=== PATIENT | male | born 1935 | race Caucasian/White ===

== ENCOUNTER 2025-07-31 21:02 | Inpatient (IN) | payer MEDICARE, SELFPAY ==
--- NOTE | ~2025-07-31 | XR_ITS ---
MODIFIED ESOPHAGRAM HISTORY: Coughing with liquids TECHNIQUE: Modified barium esophagram was performed on 08/07/2025. I administered fluoroscopy and performed the exam with speech pathologist. Patient was seated for lateral fluoroscopic imaging for ingestion of thin liquids, pudding, solids and quantified amounts, followed by thin liquids in uncontrolled amounts. This was recorded on tape. A single fluoroscopic spot image was also recorded. The DAP for this procedure was 3.013 Gycm2. The amount of fluoroscopy time used during this procedure was 3.5 minutes. FINDINGS: Oral stage: Adequate function. Pharyngeal stage: Reduced laryngeal elevation, tongue base retraction and pharyngeal squeeze. There is pharyngeal wall, piriform sinus and vallecular residue. There is laryngeal penetration without aspiration.. Cervical/esophageal stage: Adequate function. IMPRESSION: Patient tolerated regular consistency oral feedings in the upright position. Please correlate with speech pathologist findings and specific feeding recommendations. Reviewed, dictated and finalized at location A. IMPRESSION: Patient tolerated regular consistency oral feedings in the upright position. Please correlate with speech pathologist findings and specific feedi ng recommendations.
--- NOTE | ~2025-07-31 | XR_ITS ---
XR chest 1V portable 07/31/2025 21:50 Indication: Fever Procedure: AP portable chest Comparison: No prior studies for comparison. Findings: There is airspace disease of the left mid and lower lung, consistent with pneumonia. Cardiomegaly. Status post median sternotomy for CABG. No pneumothorax. Small right pleural effusion versus pleural thickening. Multiple healed right rib fractures. Impression: 1: Airspace disease left mid and lower lung which is compatible with pneumonia. 2: Small right pleural effusion versus pleural thickening. Reviewed, dictated and finalized at location O. Impression: 1: Airspace disease left mid and lower lung which is compatible with pneumonia. 2: Small right pleural effusion versus pleural thickening.
--- NOTE | ~2025-07-31 | XR_ITS ---
EXAMINATION: XR chest 1V portable DATE: 08/08/2025 06:50 INDICATION: Pneumonia TECHNIQUE: frontal view of the chest was obtained. COMPARISON: Chest radiograph dated 08/02/25 FINDINGS: Persistent airspace opacities in the right mid to lower and left lower lung zones which could represent atelectasis or pneumonia. No pleural effusion or pneumothorax. Heart size is normal. Median sternotomy wires and mediastinal surgical clips are seen, likely from prior coronary artery bypass grafting. Multiple old healed right-sided rib fractures. Lower thoracic dextrocurvature. IMPRESSION: 1. Persistent mild opacities in the right mid to lower and left lower lung zones which could represent atelectasis or pneumonia. Reviewed, dictated and finalized at location A. IMPRESSION: 1. Persistent mild opacities in the right mid to lower and left lower lung zone s which could represent atelectasis or pneumonia.
--- NOTE | ~2025-07-31 | XR_ITS ---
EXAMINATION: XR chest 1V portable, 08/02/2025 22:58 CDT HISTORY: afib rvr COMPARISON: No comparisons available. Technique: Single view. Findings: Moderate pulmonary venous congestion. Small basilar infiltrates. No pneumothorax. Moderate cardiomegaly. Mediastinal and hilar contours are within normal limits. Post sternotomy. Remote Rib fractures. Impression: CHF. Superimposed probable pneumonia. Reviewed, dictated and finalized at location A. Impression: CHF. Superimposed probable pneumonia.
--- NOTE | ~2025-07-31 | XR_ITS ---
MODIFIED ESOPHAGRAM HISTORY: Coughing with liquids. Pneumonia. TECHNIQUE: Modified barium esophagram was performed on 08/01/2025. I administered fluoroscopy and performed the exam with speech pathologist. Patient was seated for lateral fluoroscopic imaging for ingestion of thin liquids, pudding, solids and quantified amounts, followed by thin liquids in uncontrolled amounts. This was recorded on tape. A single fluoroscopic spot image was also recorded. The DAP for this procedure was 1.633 Gycm2. The amount of fluoroscopy time used during this procedure was 2.2 minutes. FINDINGS: Oral stage: Adequate function. Pharyngeal stage: Reduced laryngeal elevation and tongue base retraction. There is vallecular residue. Single episode of laryngeal penetration with thin liquids taken through a straw. No aspiration. Cervical/esophageal stage: Adequate function. IMPRESSION: Mild pharyngeal dysphagia with single episode of laryngeal penetration without aspiration due to reduced laryngeal elevation. Please correlate with speech pathologist findings and specific feeding recommendations. Reviewed, dictated and finalized at location A. IMPRESSION: Mild pharyngeal dysphagia with single episode of laryngeal penetrat ion without aspiration due to reduced laryngeal elevation. Please correlate [facility] speech pathologist findings and specific feeding recommendations.
--- NOTE | ~2025-07-31 | NM_ITS ---
EXAMINATION: NM GI bleeding DATE: 08/01/2025 16:02 INDICATION: Coffee-ground emesis TECHNIQUE: 20 mCi Tc 99m in vitro UltraTag labeled red cells administered intravenously. Scintigraphic images of the abdomen were obtained through one hour. FINDINGS: No pattern of abnormal activity is seen in the abdomen or pelvis to suggest gastrointestinal hemorrhage. IMPRESSION: 1. No scintigraphic evidence for active gastrointestinal bleeding. Reviewed, dictated and finalized at location A.
--- NOTE | ~2025-07-31 | CT_ITS ---
EXAMINATION: CT chest abdomen pelvis wo con DATE: 08/03/2025 13:15 INDICATION: Abdominal pain. Worsening opacities in the lungs. TECHNIQUE: Computed tomography (CT) of the chest, abdomen, and pelvis was performed without intravenous contrast. Automated exposure control and iterative reconstruction technique were employed. The dose-length product was 1215.12 mGy-cm. COMPARISON: None FINDINGS: CHEST CT: Very small right and trace left pleural effusions. There are scattered patchy groundglass opacities in both lungs with more dense patchy consolidation and some tree-in-bud opacities in the bilateral lower lobes and the right middle lobe which could represent atelectasis, pneumonia, pulmonary edema or some combination thereof. Cardiomegaly. Atherosclerotic coronary artery calcifications. Postoperative change of prior median sternotomy and coronary artery bypass grafting. 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 No pericardial effusion. Enlargement of the central pulmonary arteries consistent with pulmonary arterial hypertension. Mild mediastinal lymphadenopathy which is likely reactive. ABDOMEN/PELVIS CT: There are multiple hypodense hepatic masses measuring up to 7.8 cm at the medial segment of the left hepatic lobe and 6 cm at the inferior right hepatic lobe consistent with metastatic disease. Spleen, bilateral adrenal glands and left kidney are normal. 12 mm exophytic lesion at the lower pole the right kidney which appears denser than the renal parenchyma, still indeterminate but suggestive of proteinaceous/hemorrhagic cyst. Tiny focus of pneumobilia within the otherwise normal gallbladder likely related to a biliary stent seen in the distal common bile duct at the head of the otherwise normal-appearing pancreas there is extensive oral contrast material scattered throughout the colon. There are multiple diverticula without adjacent inflammatory stranding to suggest diverticulitis. No bowel obstruction. Postoperative change of bilateral inguinal hernia repairs. Bladder appears unremarkable although portions of the posterior bladder obscured by dense metallic streak artifact from a left total hip arthroplasty. 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 Moderate thoracic and lower lumbar spondylosis. IMPRESSION: 1. Bilateral inferior predominant lung disease which could represent, pulmonary edema, atelectasis or some combination thereof with very small right and trace left pleural effusions. 2. Cardiomegaly with enlargement of the central pulmonary arteries consistent with pulmonary arterial hypertension. 3. 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 4. Multiple scattered hepatic masses consistent with metastatic disease. If this is a new finding would recommend ultrasound-guided biopsy. 5. Indeterminate 1.2 cm exophytic right renal lesion most likely proteinaceous/hemorrhagic cyst although differential includes solid neoplasm. Consider follow-up pre and postcontrast MRI or CT when clinically improved. 6. Tiny focus of pneumobilia within the normal gallbladder likely related to a common bile duct biliary stent. Reviewed, dictated and finalized at location A. IMPRESSION: 1. Bilateral inferior predominant lung disease which could represent, pulmonary edema, atelectasis or some combination thereof with very small right and trace left pleural effusions. 2. Cardiomegaly with enlargement of the central pulmonary arteries consistent w ith pulmonary arterial hypertension. 3. 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 4. Multiple scattered hepatic masses consistent with metastatic disease. If thi s is a new finding would recommend ultrasound-guided biopsy. 5. Indeterminate 1.2 cm exophytic right renal lesion most likely proteinaceous/ hemorrhagic cyst although differential includes solid neoplasm. Consider follow -up pre and postcontrast MRI or CT when clinically improved. 6. Tiny focus of pneumobilia within the normal gallbladder likely related to a common bile duct biliary stent.
[2025-07-31 21:02] VITALS: BP 114/48; PULSE 117; RESP 36; TEMP 39.4; O2SAT 95
--- NOTE | 2025-07-31 21:10 | ECG_ITS ---
Test Date: 2025-07-31 21:16:27 Measurements Intervals [place] Rate: 110 P: 0 AK: 0 QRS: 252 QRSD: 214 T: 21 QT: 395 QTc: 537 Interpretive Statements ATRIAL FIBRILLATION WITH RAPID VENTRICULAR RESPONSE WITH ABERRANT CONDUCTION OR VENTRICULAR PREMATURE COMPLEXES MARKED RIGHT AXIS DEVIATION [QRS AXIS > 100] RIGHT BUNDLE BRANCH BLOCK [120+ ms QRS DURATION, UPRIGHT V1, 40+ ms S IN I/aVL/V4/V5/V6] No previous ECG available for comparison Electronically Signed On 08-01-2025 12:33:06 CDT by Jagjit Cabral M.D.
[2025-07-31 21:12] VITALS: PULSE 110
--- NOTE | 2025-07-31 21:18 | ED_ITS ---
HPI - Altered Mental Status General Chief Complaint: Altered Mental Status Stated Complaint: altered mental status, fever Time Seen by Provider: 07/31/25 21:09 History of Present Illness HPI narrative: Patient is a 89-year-old male who presents emergency department this evening from local [facility] facility due to concern for sepsis. Patient was noted to be febrile with a temperature of 103? F. Patient himself states that he has been having a cough and some shortness of breath which has been ongoing for 1 week. EMS also reported 1 episode of coffee-ground emesis. He does have a history of atrial fibrillation and is on Eliquis. residential also reported a history of liver cancer. Patient is not from this area and recently moved here to this nursing facility. Related Data Allergies Allergy/AdvReac Type Severity Reaction Status Date / Time banana Allergy Rash Verified 07/31/25 21:18 clarithromycin (From Biaxin) Allergy Unknown Verified 07/31/25 21:18 Penicillins Allergy Unknown Verified 07/31/25 21:18 piperacillin (From Zosyn) Allergy Unknown Verified 07/31/25 21:18 ramipril Allergy Unknown Verified 07/31/25 21:18 tazobactam (From Zosyn) Allergy Unknown Verified 07/31/25 21:18 vancomycin Allergy Unknown Verified 07/31/25 21:18 Review of Systems 2 Review of Systems: All systems are reviewed and are negative unless stated otherwise in the HPI. Exam 2 Narrative: General: Alert, awake, febrile, in no acute distress. HEENT: PERRL, no rhinorrhea, no post nasal drip, oropharynx clear. Neck: Trachea midline, no JVD, no lymphadenopathy. Cardiovascular: Regular rate and rhythm, no murmurs, rubs or gallops, no peripheral edema. Respiratory: Clear to auscultation bilaterally, no tachypnea, no wheezing, no rhonchi, no rubs, no respiratory distress. Abdomen: Soft, nontender, nondistended, no rebound, no guarding, no peritoneal signs. Musculoskeletal: No joint swelling or deformity, normal muscle tone. Skin: No rashes or petechia, no signs of infection. Psychiatric: Alert and oriented, normal behavior and judgment for situation. Neurological: Alert and oriented to person, place, and time. Follows all commands. No focal deficits, speech is clear and fluent. Course Vital Signs Vital signs: Vital Signs Temperature 103 F H 07/31/25 21:02 Pulse Rate 117 H 07/31/25 21:02 Respiratory Rate 36 H 07/31/25 21:02 Blood Pressure 114/48 L 07/31/25 21:02 Pulse Oximetry 95 07/31/25 21:02 Oxygen Delivery Room Air 07/31/25 21:02 Temperature 103 F H 07/31/25 21:02 Pulse Rate 110 H 07/31/25 21:12 Respiratory Rate 36 H 07/31/25 21:02 Blood Pressure 114/48 L 07/31/25 21:02 Pulse Oximetry 99 07/31/25 21:21 Oxygen Delivery Nasal Cannula 07/31/25 21:21 Oxygen Flow Rate 2 07/31/25 21:21 MDM - Altered Mental Status MDM Narrative Medical decision making narrative: The patient was evaluated by myself in the emergency department. History is obtained from patient who is an independent historian and physical exam was performed. External medical records were reviewed at this time. IV was established and pertinent tests were ordered. Patient was started on IV fluids due to concern for sepsis. Administered 1 g of IV Rocephin and 100 mg of IV doxycycline pending source identification likely source pulmonary and at 1 g of oral Tylenol for a fever of 103? F. blood cultures were obtained prior to antibiotic administration. EKG was obtained which revealed AFib with RVR rate of 110 beats per minute. No ST changes, T wave inversions or evidence of acute ischemia. EKG was independently interpreted by me and is currently pending official cardiology read. Laboratory results obtained revealing a leukocytosis of 14.3, hemoglobin of 7.8, no previous hemoglobin available to trend. At this time given that the patient is on Eliquis with 2 reported coffee-ground emesis, type and screen an H&H every 6 hours were ordered. Patient was administered 80 mg of IV Protonix. CMP revealed a sodium of 129, creatinine 1.5, lactic acid 2.5, AST 98 an ALT 88, alkaline phosphatase 68. Case was discussed with the on-call burn out tender lace Dr. Bustos at 2215 due to concern for upper GI bleed and he did agree to evaluate the patient in the morning. Imaging studies obtained included CXR which was independently interpreted by me revealing: Impression: 1: Airspace disease left mid and lower lung which is compatible with pneumonia. 2: Small right pleural effusion versus pleural thickening. Differential diagnosis considerations include sepsis secondary to infectious process such as pneumonia/UTI, dehydration, electrolyte derangements, acute viral syndrome. Comorbidities impacting this visit include reported history of liver cancer. I have evaluated and discussed social determinants of health with the patient that could potentially impact subsequent diagnosis and treatment plans. On repeat assessment of the patient, reevaluation revealed that the patient is doing well and is in no acute distress. Patient symptoms have improved since he arrived to our emergency department. Repeat vital signs were all reviewed and noted to be stable. Differential diagnosis and treatment plan were discussed with the patient at bedside. Patient agrees with discussion and after shared medical decision making agrees with admission. All questions were answered to the patient's satisfaction. Critical care time of 57 minutes, exclusive of separately performed procedures, necessary for treating or preventing eminent or life-threatening deterioration of patient's condition of sepsis, focused on patient care provided personally by me and time spent during initial evaluation, physical examination, ordering and performing treatments and interventions, ordering and reviewing laboratory studies, ordering and reviewing radiographic studies, re-evaluation of the patient's condition, evaluation of the patient's response to treatment, and discussion of patient case with multiple consultants. Case discussed with the on-call hospitalist Cordelia at 2230 and she accepted admission. Lab Data 07/31/25 21:39 07/31/25 21:39 Labs: Lab Results 07/31/25 Range/Units 21:39 WBC 14.3 H (4.5-10.0) K/mm3 RBC 2.77 L (4.6-6.20) M/mm3 Hgb 7.8 L (14.0-18.0) g/dL Hct 24.8 L (42.0-52.0) % MCV 89.5 (80-100) fl MCH 28.2 (26-34) pg MCHC 31.5 L (32-36) g/dl RDW 17.8 H (11.5-14.5) % Plt Count 354 (150-375) k/mm3 MPV 9.7 (7.4-10.4) fl Immature Gran % (Auto) 0.7 H (0-0.5) % Neut % (Auto) 93.1 H (45.5-73.1) % Lymph % (Auto) 1.5 L (18.3-44.2) % [place] % (Auto) 4.5 (2.6-8.5) % Eos % (Auto) 0.0 (0-4.4) % Baso % (Auto) 0.2 (0.2-1.2) % Lymph # (Auto) 0.22 L (0.9-3.2) K/mm3 [place] # (Auto) 0.6 (0.1-0.6) K/mm3 Eos # (Auto) 0.0 (0-0.3) K/mm3 Baso # (Auto) 0.0 (0.0-0.1) K/mm3 Abs Immat Gran (auto) 0.10 H (0.00-0.031) K/mm3 Absolute Neuts (auto) 13.3 H (1.3-6.7) K/mm3 Absolute Nucleated RBC 0.000 (0.0-0.012) K/mm3 Nucleated RBC % 0.0 (0.0-0.2) % Sodium 129 L (137-145) mmol/L Potassium 4.4 (3.4-5.0) mmol/L Chloride 96 L (98-107) mmol/L Carbon Dioxide 23 (22-30) mmol/L Anion Gap 10 (4-12) mmol/L BUN 39 H (9-20) mg/dL Creatinine 1.53 H (0.7-1.3) mg/dL Estim Creat Clear Calc 31 ml/min Estimated GFR 43 L (59 - ) Glucose 144 H (65-110) mg/dL Lactic Acid 2.5 H (0.7-2.0) mmol/L Calcium 8.2 L (8.4-10.2) mg/dL Magnesium 2.2 (1.6-2.3) mg/dL Total Bilirubin 0.8 (0.2-1.3) mg/dL AST 98 H (17-59) U/L ALT 88 H (6-50) U/L Alkaline Phosphatase 668 H (38-126) U/L Ammonia < 9 L (9-30) umol/L Total Protein 7.1 (6.3-8.2) g/dL Albumin 3.4 L (3.5-5.1) g/dL Influenza A (RT-PCR) Pending Influenza B (RT-PCR) Pending RSV (RT-PCR) Pending SARS-CoV-2 RNA (RT-PCR) Pending Critical Care Time Critical Care Time Critical Care Time: Yes Total Critical Care Time: 57 (Please refer to MDM for attestation.) Discharge Plan Discharge Clinical Impression: Sepsis, Lobar pneumonia, Acute upper GI bleed, History of liver disease, Normocytic anemia, Hyponatremia Patient Disposition: Still a Patient Condition: Stable Patient Language: Thai Follow-up/Referrals: PHYSICIAN,TOOL MAINTENANCE TECHNICIAN [Primary Care Provider, Internal Medicine] Time of Disposition: 22:39
[2025-07-31] MEDS: SODIUM CHLORIDE 0.9% IV 1,000 ML 999 ML IV CONT ×2 (21:19→22:01)
[2025-07-31 21:21] VITALS: O2SAT 99
[2025-07-31] MEDS: ACETAMINOPHEN 500 MG TABLET 1000 MG PO (21:25)
[2025-07-31 21:53] LABS: Hematocrit 24.8 % (42.0-52.0); Hemoglobin 7.8 g/dL (14.0-18.0); Immature Granulocyte Percent A 0.7 % (0-0.5); Lymphocytes Absolute Auto 0.22 K/mm3 (0.9-3.2); Mean Corpuscular HGB Conc 31.5 g/dl (32-36); Mean Corpuscular Hemoglobin 28.2 pg (26-34); Mean Corpuscular Volume 89.5 fl (80-100); Nucleated Red Blood Cells Absolute Auto 0.000 K/mm3 (0.0-0.012); Nucleated Red Blood Cells Perc 0.0 % (0.0-0.2); Platelet Count Result 354 k/mm3 (150-375); Red Blood Count 2.77 M/mm3 (4.6-6.20); White Blood Count 14.3 K/mm3 (4.5-10.0)
--- NOTE | 2025-07-31 21:56 | PC.NURSE ---
Patient was unable to provide a urine sample and stated he would try again after his bag of fluids is finished.
[2025-07-31 22:00] VITALS: TEMP 37.2; O2SAT 97
[2025-07-31 22:00] LABS: Ammonia < 9 umol/L (9-30)
[2025-07-31 22:05] LABS: Alanine Aminotransferase 88 U/L (6-50); Albumin Level 3.4 g/dL (3.5-5.1); Alkaline Phosphatase 668 U/L (38-126); Anion Gap 10 mmol/L (4-12); Aspartate Amino Transferase 98 U/L (17-59); Bilirubin,Total 0.8 mg/dL (0.2-1.3); Blood Urea Nitrogen 39 mg/dL (9-20); Calcium 8.2 mg/dL (8.4-10.2); Carbon Dioxide 23 mmol/L (22-30); Chloride 96 mmol/L (98-107); Estimated CRCL calculation 31 ml/min; Estimated Glomerular Filt Rate 43; Glucose 144 mg/dL (65-110); Magnesium 2.2 mg/dL (1.6-2.3); Potassium 4.4 mmol/L (3.4-5.0); Sodium 129 mmol/L (137-145); Total Protein 7.1 g/dL (6.3-8.2)
--- NOTE | 2025-07-31 22:12 | PC.NURSE ---
Per EDP. Pt is to only receive first 2nd bag of NS. She will then reassess pt to determine if he is in need of the rest of his fluids that are ordered.
[2025-07-31 23:01] LABS: Influenza A QL RT-PCR Negative (Negative); Influenza B QL RT-PCR Negative (Negative); RSV RNA, RT-PCR Negative (Negative); SARS-CoV-2 RNA PCR Negative (Negative)
--- NOTE | 2025-07-31 23:01 | PC.NURSE ---
Patient refused straight cath at this time. newsagent notified.
[2025-07-31 23:05] LABS: Hematocrit 27.0 % (42.0-52.0); Hemoglobin 8.7 g/dL (14.0-18.0)
[2025-07-31] MEDS: cefTRIAXone 2 GM in SODIUM CHLORIDE 0.9% IV 100 ML 200 ML IVPB (23:10)
[2025-07-31] MEDS: PANTOPRAZOLE SODIUM IV 40 MG VIAL 80 MG IV PUSH (23:19)
[2025-07-31 23:20] LABS: Add Urine Microscopic? YES; Appearance Urine Clear (Clear); Glucose Urine UA Negative (Negative); Leukocyte Esterase Ur Negative LEU/UL (Negative); Nitrate Urine Negative (Negative); Specific Grav Ur 1.027 (1.001-1.035)
[2025-07-31 23:31] VITALS: BP 110/79; PULSE 110; RESP 20; TEMP 37.2; O2SAT 98
[2025-07-31 23:45] VITALS: BP 115/54; PULSE 123; RESP 18; TEMP 36.8; O2SAT 99; BMI 25.4
[2025-08-01] VITALS (30 sets, daily range): BP systolic 103–128; BP diastolic 44–62; PULSE 72–114; RESP 14–28; TEMP 36.4–36.9; O2SAT 95–100; BMI 25.4
--- NOTE | 2025-08-01 | ADMGEN ---
This patient, Isaias Mc, was admitted to IMU Room 214-01. Patient/family oriented to hospital policies and general routines including ID bracelet, bed and alarms, visiting hours, pain management, procedures, bathroom and other care routines, personal items, smoking policy, room service/diet, and visiting hours. Information on how to activate the Rapid Response Team has been discussed. Patient/Family are encouraged to report perceived risks to care and to ask questions if they do not understand what they are told or what they should do. Received report from REYES Bhandari at [phone]. Patient arrived at 2345 via stretcher.
[2025-08-01] MEDS: DOXYCYCLINE IV 100 MG in SODIUM CHLORIDE 0.9% IV 100 ML IVPB ×2 (01:40→14:53)
--- NOTE | 2025-08-01 03:41 | PM.IMHP ---
H&P: HPI History of Present Illness Date/Time: 08/01/25 03:41 Chief Complaint: Altered mental status Narrative: This is a 89-year-old male patient who resides at [facility]. He has a history of AFib and is on Eliquis. It was also reported that he has liver cancer. It was reported that the patient is not from this area and recently moved here to this nursing facility. The patient is a poor historian. The patient was sent here to the emergency room for concern of sepsis. The patient was noted to be afebrile with a temperature 103?. The patient told the emergency room that he was having cough and some shortness of breath for 1 week. Chest x-ray was read as 1: Airspace disease left mid and lower lung which is compatible with pneumonia. 2: Small right pleural effusion versus pleural thickening His white count was found to be 14.3. H&H is 8.7 and 27.0. Sodium levels 129 with chloride of 96. BUN 39 with creatinine of 1.53. GFR is 43. Glucose is 144. Lactic acid was 2.5 now 1.6. Calcium is low at 8.2. AST is 98, ALT is 88, alkaline phosphatase 668. Ammonia level is less than 9. Serology testing are negative. The patient was given normal saline bolus x3. He was started on doxycycline and ceftriaxone. The patient is being admitted to inpatient status in IMU on the date of service of 08/01/2025 Review of Systems Review of Systems: ROS unobtainable: Yes unobtainable due to medical condition and unobtainable due to mental status [facility] Past Medical History Medical History (Updated 08/01/25 @ 04:34 by Moni Storey APRN) BPH (benign prostatic hyperplasia) Hypothyroidism Seizure disorder Atrial fibrillation Family History Family History Mother Congestive heart failure Social History Social History (Updated 08/01/25 @ 03:54 by Moni Storey APRN) Social History: He resides at [facility]. Code status;: Full code Smoking packs per day: 1 Smoking cigarettes per day: 20.0 Years smoked: 15 Smoking pack-years: 15.00 Smoking status: Former smoker Tobacco type: cigarettes and pipe Smoking end date: 11/27/69 Additional smoking assessment comments: Smoked pipe for 20 year after quit so Alcohol intake: former Drinks per week: 1 Substance use: never Substance use type: does not use Lack of Transportation: No Lack of Food: Never True Current Housing: I Have Housing Concerned About Future Housing: No Difficulty Paying Gas/Electric Bills: No Difficulty Paying for Meds: No Currently Unemployed: No Education: Master's Degree or Higher Difficulty w/ Childcare or Family Care: YES Spiritual care concerns: No Meds Home Medications and Allergies Home Medications ?Medication ?Instructions ?Recorded ?Confirmed ?Type amiodarone 200 mg tablet 200 mg PO BID 08/01/25 08/01/25 History apixaban 5 mg tablet (Eliquis) 5 mg PO BID 08/01/25 08/01/25 History aspirin 81 mg tablet 81 mg PO ONCE 08/01/25 08/01/25 History carbamazepine 100 mg/5 mL oral 150 mg PO DAILY@1700 08/01/25 08/01/25 History suspension (Tegretol) carbamazepine 200 mg tablet 300 mg PO DAILY 08/01/25 08/01/25 History (Tegretol) furosemide 20 mg tablet 20 mg PO DAILY@0800 08/01/25 08/01/25 History levetiracetam 250 mg tablet 250 mg PO DAILY 08/01/25 08/01/25 History (Keppra) levothyroxine 150 mcg tablet 150 mcg PO DAILY@0630 08/01/25 08/01/25 History metoprolol tartrate 25 mg tablet 25 mg PO BID 08/01/25 08/01/25 History eibkeqom-rr-bqxer 300 mcg-K 60 1 tablet PO DAILY 08/01/25 08/01/25 History mcg-lycop 600 mcg-lutein 300 mcg tablet (Centrum Silver Men) spironolactone 25 mg tablet 25 mg PO DAILY 08/01/25 08/01/25 History tamsulosin 0.4 mg capsule 0.4 mg PO Q24H 08/01/25 08/01/25 History vit C,H-Kl-tsinnv-lutein-zeaxan 60 1 cap PO DAILY 08/01/25 08/01/25 History mg-13.5 mg-15 mg-2 mg-6 mg capsule (Ocuvite Lutein and Zeaxanthin) Allergies Allergy/AdvReac Type Severity Reaction Status Date / Time banana Allergy Rash Verified 07/31/25 21:18 clarithromycin (From Biaxin) Allergy Unknown Verified 07/31/25 21:18 Penicillins Allergy Unknown Verified 07/31/25 21:18 piperacillin (From Zosyn) Allergy Unknown Verified 07/31/25 21:18 ramipril Allergy Unknown Verified 07/31/25 21:18 tazobactam (From Zosyn) Allergy Unknown Verified 07/31/25 21:18 vancomycin Allergy Unknown Verified 07/31/25 21:18 Vital Signs Vital Signs - 24 hr 07/31/25 21:02 07/31/25 21:12 07/31/25 21:21 Temperature 103 F H Pulse Rate 117 H 110 H Respiratory Rate 36 H Blood Pressure 114/48 L Pulse Oximetry 95 99 Oxygen Delivery Room Air Nasal Cannula Oxygen Flow Rate 2 07/31/25 22:00 07/31/25 22:00 07/31/25 23:31 Temperature 99.0 F 99.0 F Pulse Rate 110 H Respiratory Rate 20 Blood Pressure 110/79 Pulse Oximetry 97 98 Oxygen Delivery Room Air Oxygen Flow Rate 07/31/25 23:45 08/01/25 00:00 08/01/25 00:00 Temperature 98.3 F Pulse Rate 123 H 114 H 113 H Respiratory Rate 18 18 Blood Pressure 115/54 L Pulse Oximetry 99 99 Oxygen Delivery Room Air Oxygen Flow Rate 08/01/25 00:32 08/01/25 02:00 Temperature Pulse Rate 114 H 89 Respiratory Rate Blood Pressure Pulse Oximetry Oxygen Delivery Oxygen Flow Rate Exam Const: General: cooperative, comfortable, no acute distress, well developed, average body habitus and well nourished Nutritional Appearance: average body habitus Orientation/consciousness: oriented to person HENMT: Head: normal to inspection, No palpable skull fracture present, normocephalic and atraumatic Ears: external ears normal Eyes: General: appearance normal, both eyes and all related structures Alignment and Position: alignment normal Neck: Neck: normal visual inspection Chest: Chest palpation & inspection: normal inspection of the chest Resp: Effort & Inspection: normal respiratory effort Auscultation: clear to auscultation bilaterally Cardio: Rate: regular rate Rhythm: abnormal rhythm regularly irregular Peripheral pulses: Peripheral pulses 2+ throughout GI: Inspection: normal to inspection Skin: General skin exam: normal color Lesions: no lesions Rashes: no rashes Trauma: no lacerations or abrasions Wounds: no wounds Other: Light green bruising noted to the left anterior shoulder Neuro: General: oriented to person and oriented to place Other: Patient is a poor historian. The patient keeps falling asleep during the interview. Is having difficulty answering questions. He continues to fall asleep not answer the questions. Extrem: General: normal to inspection Right upper extremity: normal to inspection and shoulder/upper arm Left upper extremity: normal to inspection Right lower extremity: normal to inspection Left lower extremity: normal to inspection Psych: Appearance: grossly normal H&P: Results Labs Labs: Short CBC 07/31/25 07/31/25 Range/Units 21:39 22:53 WBC 14.3 H (4.5-10.0) K/mm3 Hgb 7.8 L 8.7 L (14.0-18.0) g/dL Hct 24.8 L 27.0 L (42.0-52.0) % Plt Count 354 (150-375) k/mm3 BMP 07/31/25 21:39 Sodium 129 L Potassium 4.4 Chloride 96 L Carbon Dioxide 23 BUN 39 H Creatinine 1.53 H Glucose 144 H Calcium 8.2 L Liver Function 07/31/25 Range/Units 21:39 Total Bilirubin 0.8 (0.2-1.3) mg/dL AST 98 H (17-59) U/L ALT 88 H (6-50) U/L Alkaline Phosphatase 668 H (38-126) U/L Albumin 3.4 L (3.5-5.1) g/dL Urine 07/31/25 Range/Units 23:10 Urine Color Dark yellow (Yellow) Urine Appearance Clear (Clear) Urine pH 5.0 (5.0-9.0) Ur Specific [place] 1.027 (1.001-1.035) Urine Protein Negative (Negative) mg/dL Urine Glucose (UA) Negative (Negative) mg/dL Imaging Chest x-ray: Radiologist's impression: Impressions Chest X-Ray 07/31/25 21:56 Impression: 1: Airspace disease left mid and lower lung which is compatible with pneumonia. 2: Small right pleural effusion versus pleural thickening. Assessment and Plan Assessment and plan (1) Lobar pneumonia: Code(s): J18.1 - Lobar pneumonia, unspecified organism Status: Acute Assessment and Plan: -continue with IV fluids -lactic was elevated at 2.5 and then came down to 1.6 with IV fluids. -routine nebulizer treatments. -continue with Rocephin and doxycycline IV antibiotics. -sputum culture pending (2) Atrial fibrillation: Code(s): I48.91 - Unspecified atrial fibrillation Status: Acute Assessment and Plan: -the patient remains in AFib with controlled heart rate -continue with Eliquis -continue with amiodarone (3) Hyponatremia: Code(s): E87.1 - Hypo-osmolality and hyponatremia Status: Acute Assessment and Plan: -continue with IV fluids -check urine and serum osmolality -the patient is on Lasix which can deplete disodium so I will hold it for now. -the patient also may be dehydrated. -it was reported that the patient has some type of liver cancer. However cannot find it in his records and I was unable [facility] that could verify this. This could also be another source of hyponatremia -continue to monitor renal function (4) Hypothyroidism: Code(s): E03.9 - Hypothyroidism, unspecified Status: Acute Assessment and Plan: -check thyroid level -continue with thyroid medicine -the patient has been on amiodarone which could possibly cause his hypothyroidism. (5) Acute upper GI bleed: Code(s): K92.2 - Gastrointestinal hemorrhage, unspecified Status: Acute Assessment and Plan: -check stool for occult blood -continue to monitor H&H -his initial H&H was 7.8 and 24.8. Repeat level was 8.7 and 27.0. Now he is 6.7 and 21.0 -he is hemodynamically stable. -it was reported that the patient had a coffee-ground emesis in the emergency room. -the patient is on Eliquis for AFib -hold Eliquis for today. Re-evaluate to determine if again restart it for AFib -GI has been consulted (6) History of liver disease: Code(s): Z87.19 - Personal history of other diseases of the digestive system Status: Acute Assessment and Plan: -it was reported that the patient has possible liver cancer. However I am not able to reach anybody at the nursing facility that can give me further history. May consider CT of the abdomen. -liver enzymes are elevated (7) BPH (benign prostatic hyperplasia): Code(s): N40.0 - Benign prostatic hyperplasia without lower urinary tract symptoms Status: Acute Assessment and Plan: -continue with Flomax (8) Seizure disorder: Code(s): G40.909 - Epilepsy, unspecified, not intractable, without status epilepticus Status: Acute Assessment and Plan: -continue with Keppra and Tegretol -check Keppra and Tegretol levels. -the dosages on his seizure medicine came from his home list. I called [facility] and gave them our fax number so that they can fax this is information. His home medication list has some abnormal dosing and is not consistent with normal dosages on medication. These medications need to be verified through [facility]. (9) Acute renal failure: Code(s): N17.9 - Acute kidney failure, unspecified Status: Acute Assessment and Plan: -could be related to the Lasix -the patient could also be dehydrated from his fever and or poor oral intake. - Plan The nurse from [facility] stated that his note reflect abnormal liver disease and she is not sure if he has liver cancer. Quality VTE Prophylaxis VTE prophylaxis: mechanical ordered
[2025-08-01 04:22] LABS: Hematocrit 21.0 % (42.0-52.0); Mean Corpuscular HGB Conc 31.9 g/dl (32-36); Mean Corpuscular Hemoglobin 28.6 pg (26-34); Mean Corpuscular Volume 89.7 fl (80-100); Platelet Count Result 289 k/mm3 (150-375); Red Blood Count 2.34 M/mm3 (4.6-6.20); White Blood Count 12.6 K/mm3 (4.5-10.0)
[2025-08-01 04:25] LABS: Hemoglobin 6.7 g/dL (14.0-18.0)
[2025-08-01 04:36] LABS: Anion Gap 7 mmol/L (4-12); Blood Urea Nitrogen 38 mg/dL (9-20); Calcium 8.0 mg/dL (8.4-10.2); Carbon Dioxide 23 mmol/L (22-30); Chloride 100 mmol/L (98-107); Estimated CRCL calculation 35 ml/min; Estimated Glomerular Filt Rate 48; Glucose 111 mg/dL (65-110); Potassium 4.1 mmol/L (3.4-5.0); Sodium 130 mmol/L (137-145)
[2025-08-01 05:04] LABS: Thyroid Stimulating Hormone Reflex 3.660 uIU/mL (0.465-4.68)
[2025-08-01 05:25] LABS: Hematocrit 22.2 % (42.0-52.0)
[2025-08-01 05:27] LABS: Hemoglobin 6.9 g/dL (14.0-18.0)
[2025-08-01] MEDS: LEVOTHYROXINE SODIUM 150 MCG TABLET PO (06:22)
[2025-08-01] MEDS: IPRATROPIUM 0.5 MG/ALBUTEROL SULFATE 2.5 MG AMPUL.NEB 3 ML INHALATION ×2 (08:15→20:50)
--- NOTE | 2025-08-01 08:24 | P.PNIM_ITS ---
Progress Note: A&P Assessment and Plan (1) Lobar pneumonia: Code(s): J18.1 - Lobar pneumonia, unspecified organism Status: Acute Assessment and Plan: Treated with IV fluids. -lactic was elevated at 2.5 and then came down to 1.6 with IV fluids. -routine nebulizer treatments. -continue with Rocephin and doxycycline IV antibiotics. -sputum culture pending (2) Atrial fibrillation: Code(s): I48.91 - Unspecified atrial fibrillation Status: Acute Assessment and Plan: -the patient remains in AFib with controlled heart rate -continue with Eliquis -continue with amiodarone With due to drop in H&H will hold Eliquis (3) Hyponatremia: Code(s): E87.1 - Hypo-osmolality and hyponatremia Status: Acute Assessment and Plan: -continue with IV fluids -check urine and serum osmolality -Lasix on hold -it was reported that the patient has some type of liver cancer. However cannot find it in his records and I was unable to reach anybody at the [facility] that could verify this. This could also be another source of hyponatremia -continue to monitor renal function (4) Hypothyroidism: Code(s): E03.9 - Hypothyroidism, unspecified Status: Acute Assessment and Plan: -continue replacement (5) Acute upper GI bleed: Code(s): K92.2 - Gastrointestinal hemorrhage, unspecified Status: Acute Assessment and Plan: -check stool for occult blood -continue to monitor H&H -his initial H&H was 7.8 and 24.8. Repeat level was 8.7 and 27.0. Now he is 6.7 and 21.0 -he is hemodynamically stable. -it was reported that the patient had a coffee-ground emesis in the emergency room. -the patient is on Eliquis for AFib -hold Eliquis -GI has been consulted. Awaiting recommendation. Will transfuse 1 unit of PRBC Will add Protonix IV b.i.d. (6) History of liver disease: Code(s): Z87.19 - Personal history of other diseases of the digestive system Status: Acute Assessment and Plan: -it was reported that the patient has possible liver cancer. Get records. May consider CT of the abdomen. -liver enzymes are elevated (7) BPH (benign prostatic hyperplasia): Code(s): N40.0 - Benign prostatic hyperplasia without lower urinary tract symptoms Status: Acute Assessment and Plan: -continue with Flomax (8) Seizure disorder: Code(s): G40.909 - Epilepsy, unspecified, not intractable, without status epilepticus Status: Acute Assessment and Plan: -continue with Keppra and Tegretol -check Keppra and Tegretol levels. -the dosages on his seizure medicine came from his home list. (9) Acute renal failure: Code(s): N17.9 - Acute kidney failure, unspecified Status: Acute Assessment and Plan: -could be related to the Lasix -the patient could also be dehydrated from his fever and or poor oral intake. - Plan Dysphagia modified barium swallow performed mild dysesthesia with single episode of laryngeal penetration without aspiration. On dysphagia diet now. Subjective Date/time seen: 08/01/25 08:24 Interval history: No overnight events. Coughing whenever he swallows. Discussed with speech therapy. Labs reviewed. This was nursing staff. Feels little better than yesterday. Review of Systems Review of Systems: All systems reviewed & are unremarkable except as noted in HPI and below Exam Narrative: General: Alert, awake, in no acute distress. HEENT: PERRL, no rhinorrhea, no post nasal drip, oropharynx clear. Neck: Trachea midline, no JVD, no lymphadenopathy. Cardiovascular: Regular rate and rhythm, no murmurs, rubs or gallops, no peripheral edema. Respiratory: Clear to auscultation bilaterally, no tachypnea, no wheezing, no rhonchi, no rubs, no respiratory distress. Abdomen: Soft, nontender, nondistended, no rebound, no guarding, no peritoneal signs. Musculoskeletal: No joint swelling or deformity, normal muscle tone. Skin: No rashes or petechia, no signs of infection. Psychiatric: Alert and oriented, normal behavior and judgment for situation. Neurological: Alert and oriented to person, place, and time. Follows all commands. No focal deficits, speech is clear and fluent. Objective Data Vital Signs Vital Signs: Vital Signs - 24 hr 07/31/25 21:02 07/31/25 21:12 07/31/25 21:21 Temperature 103 F H Pulse Rate 117 H 110 H Respiratory Rate 36 H Blood Pressure 114/48 L Pulse Oximetry 95 99 Oxygen Delivery Room Air Nasal Cannula Oxygen Flow Rate 2 07/31/25 22:00 07/31/25 22:00 07/31/25 23:31 Temperature 99.0 F 99.0 F Pulse Rate 110 H Respiratory Rate 20 Blood Pressure 110/79 Pulse Oximetry 97 98 Oxygen Delivery Room Air Oxygen Flow Rate 07/31/25 23:45 08/01/25 00:00 08/01/25 00:00 Temperature 98.3 F Pulse Rate 123 H 114 H 113 H Respiratory Rate 18 18 Blood Pressure 115/54 L Pulse Oximetry 99 99 Oxygen Delivery Room Air Oxygen Flow Rate 08/01/25 00:32 08/01/25 02:00 08/01/25 04:00 Temperature Pulse Rate 114 H 89 75 Respiratory Rate Blood Pressure Pulse Oximetry Oxygen Delivery Oxygen Flow Rate 08/01/25 04:00 08/01/25 04:47 08/01/25 06:00 Temperature 98.1 F Pulse Rate 75 86 80 Respiratory Rate 18 Blood Pressure 113/62 Pulse Oximetry 100 Oxygen Delivery Room Air Oxygen Flow Rate 08/01/25 08:00 Temperature 97.8 F Pulse Rate 72 Respiratory Rate 21 H Blood Pressure 103/46 L Pulse Oximetry 100 Oxygen Delivery Oxygen Flow Rate Intake/Output Intake/Output: Intake & Output 07/29/25 07/30/25 07/31/25 08/01/25 23:59 23:59 23:59 23:59 Intake Total 1000 320 Balance 1000 320 Meds/Results Medications: Active Medications Generic Name Dose Route Start Last Admin Trade Name Freq PRN Reason Stop Dose Admin Albuterol/Ipratropium 3 ml 08/01/25 08:00 08/01/25 08:15 Ipratropium 0.5 Mg/Albuterol Sulfate 2.5 Mg Ampul.Neb 3 Ml INHALATION 3 ml Q6HRT [facility] Administration Amiodarone HCl 200 mg 08/01/25 08:00 Amiodarone Hcl 200 Mg Tablet PO BIDWM [facility] Carbamazepine 100 mg 08/01/25 17:00 Carbamazepine Chew 100 Mg Chew PO 08/31/25 16:59 DAILY@1700 [facility] Carbamazepine 300 mg 08/01/25 09:00 Carbamazepine Chew 100 Mg Chew PO DAILY [facility] Carbamazepine 50 mg 08/01/25 17:00 Carbamazepine Chew 50 Mg Chew PO DAILY@1700 [facility] Famotidine 20 mg 08/01/25 09:00 Famotidine 20 Mg/2 Ml Vial IV PUSH Q12HR [facility] Guaifenesin/Dextromethorphan 10 ml 08/01/25 04:21 Guaifenesin/Dextromethorphan 10 Ml Udc PO Q4H PRN Cough Ceftriaxone Sodium 1 gm/ 50 mls @ 100 mls/hr 08/01/25 23:00 Sodium Chloride IVPB Q24H ROSMERY Doxycycline Hyclate 100 mg/ 100 mls @ 100 mls/hr 08/01/25 14:00 Sodium Chloride IVPB 08/06/25 02:59 Q12H ROSMERY Sodium Chloride 250 mls @ 30 mls/hr 08/01/25 08:21 Normal Saline Iv IV CONT 08/01/25 16:40 .Q8H20M STA Levetiracetam 250 mg 08/01/25 09:00 Levetiracetam 250 Mg Tablet PO DAILY [facility] Levothyroxine Sodium 150 mcg 08/01/25 06:30 08/01/25 06:22 Levothyroxine Sodium 150 Mcg Tablet PO 150 mcg DAILY@0630 [facility] Administration Metoprolol Tartrate 25 mg 08/01/25 09:00 Metoprolol Tartrate 25 Mg Tablet PO Q12HR [facility] Multivitamins/Minerals 1 tablet 08/01/25 09:00 Opti-Gen Tab PO DAILY [facility] Spironolactone 25 mg 08/01/25 09:00 Spironolactone 25 Mg Tablet PO DAILY [facility] Tamsulosin HCl 0.4 mg 08/01/25 09:00 Tamsulosin Hcl 0.4 Mg Capsule PO DAILY [facility] Radiology Results: ITS Impressions Chest X-Ray 07/31/25 21:56 Impression: 1: Airspace disease left mid and lower lung which is compatible with pneumonia. 2: Small right pleural effusion versus pleural thickening. Labs Labs: Laboratory Results - last 24 hr 07/31/25 07/31/25 07/31/25 21:39 22:53 22:54 WBC 14.3 H RBC 2.77 L Hgb 7.8 L 8.7 L Hct 24.8 L 27.0 L MCV 89.5 MCH 28.2 MCHC 31.5 L RDW 17.8 H Plt Count 354 MPV 9.7 Immature Gran % (Auto) 0.7 H Neut % (Auto) 93.1 H Lymph % (Auto) 1.5 L Garvin % (Auto) 4.5 Eos % (Auto) 0.0 Baso % (Auto) 0.2 Lymph # (Auto) 0.22 L Garvin # (Auto) 0.6 Eos # (Auto) 0.0 Baso # (Auto) 0.0 Abs Immat Gran (auto) 0.10 H Absolute Neuts (auto) 13.3 H Absolute Nucleated RBC 0.000 Nucleated RBC % 0.0 Sodium 129 L Potassium 4.4 Chloride 96 L Carbon Dioxide 23 Anion Gap 10 BUN 39 H Creatinine 1.53 H Estim Creat Clear Calc 31 Estimated GFR 43 L Glucose 144 H Lactic Acid 2.5 H Calcium 8.2 L Magnesium 2.2 Total Bilirubin 0.8 AST 98 H ALT 88 H Alkaline Phosphatase 668 H Ammonia < 9 L Total Protein 7.1 Albumin 3.4 L TSH (Reflex) Urine Color Urine Appearance Urine pH Ur Specific [place] Urine Protein Urine Glucose (UA) Urine Ketones Ur Blood (Man) Urine Nitrate Urine Bilirubin Urine Urobilinogen Leukocyte Esterase Rfl Influenza A (RT-PCR) Negative Influenza B (RT-PCR) Negative RSV (RT-PCR) Negative SARS-CoV-2 RNA (RT-PCR) Negative Blood Type A Positive Antibody Screen Negative 07/31/25 08/01/25 08/01/25 23:10 00:42 04:14 WBC 12.6 H RBC 2.34 L Hgb 6.7 L* Hct 21.0 L MCV 89.7 MCH 28.6 MCHC 31.9 L RDW 17.5 H Plt Count 289 MPV 9.5 Immature Gran % (Auto) Neut % (Auto) Lymph % (Auto) Garvin % (Auto) Eos % (Auto) Baso % (Auto) Lymph # (Auto) Garvin # (Auto) Eos # (Auto) Baso # (Auto) Abs Immat Gran (auto) Absolute Neuts (auto) Absolute Nucleated RBC Nucleated RBC % Sodium 130 L Potassium 4.1 Chloride 100 Carbon Dioxide 23 Anion Gap 7 BUN 38 H Creatinine 1.39 H Estim Creat Clear Calc 35 Estimated GFR 48 L Glucose 111 H Lactic Acid 1.6 Calcium 8.0 L Magnesium Total Bilirubin AST ALT Alkaline Phosphatase Ammonia Total Protein Albumin TSH (Reflex) 3.660 Urine Color Dark yellow Urine Appearance Clear Urine pH 5.0 Ur Specific [place] 1.027 Urine Protein Negative Urine Glucose (UA) Negative Urine Ketones Negative Ur Blood (Man) Negative Urine Nitrate Negative Urine Bilirubin Negative Urine Urobilinogen 1.0 Leukocyte Esterase Rfl Negative Influenza A (RT-PCR) Influenza B (RT-PCR) RSV (RT-PCR) SARS-CoV-2 RNA (RT-PCR) Blood Type Antibody Screen 08/01/25 05:13 WBC RBC Hgb 6.9 L* Hct 22.2 L MCV MCH MCHC RDW Plt Count MPV Immature Gran % (Auto) Neut % (Auto) Lymph % (Auto) Garvin % (Auto) Eos % (Auto) Baso % (Auto) Lymph # (Auto) Garvin # (Auto) Eos # (Auto) Baso # (Auto) Abs Immat Gran (auto) Absolute Neuts (auto) Absolute Nucleated RBC Nucleated RBC % Sodium Potassium Chloride Carbon Dioxide Anion Gap BUN Creatinine Estim Creat Clear Calc Estimated GFR Glucose Lactic Acid Calcium Magnesium Total Bilirubin AST ALT Alkaline Phosphatase Ammonia Total Protein Albumin TSH (Reflex) Urine Color Urine Appearance Urine pH Ur Specific [place] Urine Protein Urine Glucose (UA) Urine Ketones Ur Blood (Man) Urine Nitrate Urine Bilirubin Urine Urobilinogen Leukocyte Esterase Rfl Influenza A (RT-PCR) Influenza B (RT-PCR) RSV (RT-PCR) SARS-CoV-2 RNA (RT-PCR) Blood Type Antibody Screen
--- NOTE | 2025-08-01 08:33 | PCSTNOTE ---
Please refer to the Bedside Swallow Evaluation in the EMR. Please note, silent aspiration cannot be ruled out at bedside. The patient is an 89 year old male admitted for pneumonia with coughing noted by nursing. Orders received to complete a BSE and rule out aspiration risk. The patient was positioned upright in bed. He is slightly lethargic but able to state his name and answer questions regarding his swallow function. Patient states he has been coughing with liquids. Oral motor ROM is functional for PO trials. Oral stage: Timely oral preparation and transit across consistencies. Pharyngeal Stage: When presented 5cc/tsp thin liquid no noted coughing or choking. When presented small controlled drinks thin liquid via straw the patient was noted to have a cough reflex following the swallow. When presented small controlled drinks mildly thick liquid again a cough response was noted after the swallow. With trials pudding consistency no noted coughing. Laryngeal elevation was good for all trials and vocal quality remained clear. Recommend MBS Study.
--- NOTE | 2025-08-01 09:53 | PCSTNOTE ---
Please refer to the Modified Barium Swallow Evaluation in the EMR. The patient is an 89 year old male admitted with pneumonia a BSE was ordered to r/o aspiration risk due to noted coughing with drinks by nursing. The patient was seen in a lateral view and presented the following consistencies: 5cc/tsp thin liquid barium, cup drinks thin liquid barium, straw drinks thin liquid barium, pudding mixed with barium paste, and cracker coated with barium paste. Oral Stage: Timely oral preparation and transit all consistencies. Pharyngeal stage: When presented cup trials of thin liquid the patient was noted to have moderate residual within the valleculae following the swallow secondary to reduced lingual pressure. The patient was able to clear significant amounts of the vallecular residual with a repeat dry swallow or by alternating bites and drinks. When presented cup trials of thin liquid via straw the patient was noted to have moderate residual within the valleculae following the swallow secondary to reduced lingual pressure. The patient was also noted to have trace laryngeal penetration during the swallow secondary to decreased laryngeal elevation. The material entered the airway but remained above the vocal folds and was ejected. The patient was able to clear significant amounts of the vallecular residual with a repeat dry swallow or by alternating bites and drinks. Finally, when presented trials pudding mixed with barium paste, and cracker coated with barium paste thee patient was viewed to have mild vallecular residual cleared with a repeat swallow or by alternating bites and drinks. Recommend 1. Regular Diet / Level 7 2. Thin Liquid / Level 0 3. No Straw 4. Small bites and drinks 5. Alternate bites and drinks 6. Frequent repeat swallow 7. upright for all meals 8. Speech therapy to address compensatory techniques and exercises to include [place], Effortful swallow, Tongue base retraction, and laryngeal elevation with a chin tuck against resistance.
[2025-08-01] MEDS: METOPROLOL TARTRATE 25 MG TABLET PO ×2 (09:57→20:33)
[2025-08-01] MEDS: AMIODARONE HCL 200 MG TABLET PO ×2 (09:57→16:50)
[2025-08-01] MEDS: SPIRONOLACTONE 25 MG TABLET PO (09:57)
[2025-08-01] MEDS: OPTI-GEN TAB 1 TABLET PO (09:57)
[2025-08-01] MEDS: FAMOTIDINE 20 MG/2 ML VIAL IV PUSH (09:58)
--- NOTE | 2025-08-01 10:07 | WPDCDIQUERY2 ---
CDI Query Clarification Request Sepsis was mentioned in ER note. However, this diagnosis has not been referenced in subsequent hospitalist documentation. Please clarify if sepsis has been ruled in or ruled out. ER documented: Clinical Impression: Sepsis, Lobar pneumonia, Acute upper GI bleed, History of liver disease, Normocytic anemia, Hyponatremia Hospitalist documented: Assessment and plan (1) Lobar pneumonia: Code(s): J18.1 - Lobar pneumonia, unspecified organism Status: Acute Assessment and Plan: -continue with IV fluids -lactic was elevated at 2.5 and then came down to 1.6 with IV fluids. -routine nebulizer treatments. -continue with Rocephin and doxycycline IV antibiotics. -sputum culture pending (2) Atrial fibrillation: Code(s): I48.91 - Unspecified atrial fibrillation Status: Acute Assessment and Plan: -the patient remains in AFib with controlled heart rate -continue with Eliquis -continue with amiodarone (3) Hyponatremia: Code(s): E87.1 - Hypo-osmolality and hyponatremia Status: Acute Assessment and Plan: -continue with IV fluids -check urine and serum osmolality -the patient is on Lasix which can deplete disodium so I will hold it for now. -the patient also may be dehydrated. -it was reported that the patient has some type of liver cancer. However cannot find it in his records and I was unable to reach anybody at the [facility] that could verify this. This could also be another source of hyponatremia -continue to monitor renal function (4) Hypothyroidism: Code(s): E03.9 - Hypothyroidism, unspecified Status: Acute Assessment and Plan: -check thyroid level -continue with thyroid medicine -the patient has been on amiodarone which could possibly cause his hypothyroidism. (5) Acute upper GI bleed: Code(s): K92.2 - Gastrointestinal hemorrhage, unspecified Status: Acute Assessment and Plan: -check stool for occult blood -continue to monitor H&H -his initial H&H was 7.8 and 24.8. Repeat level was 8.7 and 27.0. Now he is 6.7 and 21.0 -he is hemodynamically stable. -it was reported that the patient had a coffee-ground emesis in the emergency room. -the patient is on Eliquis for AFib -hold Eliquis for today. Re-evaluate to determine if again restart it for AFib -GI has been consulted (6) History of liver disease: Code(s): Z87.19 - Personal history of other diseases of the digestive system Status: Acute Assessment and Plan: -it was reported that the patient has possible liver cancer. However I am not able to reach anybody at the nursing facility that can give me further history. May consider CT of the abdomen. -liver enzymes are elevated (7) BPH (benign prostatic hyperplasia): Code(s): N40.0 - Benign prostatic hyperplasia without lower urinary tract symptoms Status: Acute Assessment and Plan: -continue with Flomax (8) Seizure disorder: Code(s): G40.909 - Epilepsy, unspecified, not intractable, without status epilepticus Status: Acute Assessment and Plan: -continue with Keppra and Tegretol -check Keppra and Tegretol levels. -the dosages on his seizure medicine came from his home list. I called [facility] and gave them our fax number so that they can fax this is information. His home medication list has some abnormal dosing and is not consistent with normal dosages on medication. These medications need to be verified through [place]. (9) Acute renal failure: Code(s): N17.9 - Acute kidney failure, unspecified Status: Acute Assessment and Plan: -could be related to the Lasix -the patient could also be dehydrated from his fever and or poor oral intake. Lactic acid: 07/31: 2.5, 08/01: 1.6 WBC elevated 14.3, 12.6 Febrile in ER temp documented at 103 Doxy IV q12 ceftriaxone IV q24 <Mali Bautista RN - Last Filed: 08/01/25 10:25> Provider Comments Sepsis ruled in <Michael Downs MD - Last Filed: 08/03/25 12:23>
[2025-08-01 10:54] LABS: Hematocrit 22.2 % (42.0-52.0); Hemoglobin 7.1 g/dL (14.0-18.0)
[2025-08-01] MEDS: SODIUM CHLORIDE 0.9% IV 250 ML 30 ML IV CONT (11:00)
[2025-08-01] MEDS: TUBING, BLOOD PLUM PUMP TUBING 1 EACH XX (11:00)
--- NOTE | 2025-08-01 11:29 | PCRCNOTE ---
Follow up for 02 titration. Pt not in room.
[2025-08-01] MEDS: carBAMazepine CHEW 50 MG CHEW PO (16:50)
--- NOTE | 2025-08-01 16:54 | WPDGICN ---
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 Status: Acute Assessment and Plan: based on history (3) Metastasis to liver: Code(s): C78.7 - Secondary malignant neoplasm of liver and intrahepatic bile duct Status: Acute (4) Acute on chronic anemia: Code(s): D64.9 - Anemia, unspecified Status: Acute Assessment and Plan: keep hgb>7 iv protonix bid ir more bleeding then we will reassess if egd is indicated (5) Sepsis: Code(s): A41.9 - Sepsis, unspecified organism Status: Acute (6) Lobar pneumonia: Code(s): J18.1 - Lobar pneumonia, unspecified organism Status: Acute (7) Acute renal failure: Code(s): N17.9 - Acute kidney failure, unspecified Status: Acute GI Consult Note Consult date/time: 08/01/25 16:54 Reason for consult: coffee ground emesis HPI: Isaias Mc is a 89 year old male with 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 He is new to our system and just moved to a local long-term. He was brought here after more cough and SOB, noted fever. Here temperature 103?, also wbc 14k, diagnosed with pneumonia. Also report of coffee ground emesis, hgb 6.7. CXR Airspace disease left mid and lower lung which is compatible with pneumonia. Sodium 129, BUN 39, creatinine of 1.53. GFR is 43. Glucose is 144. Lactic acid was 2.5 now 1.6. AST is 98, ALT is 88, alkaline phosphatase 668. He is feeling better now, given iv fluid and antibiotic. Review of Systems Constitutional: Constitutional: Reports chills Comments: fever ENT: Reports Normal hearing present Cardiovascular: Cardiovascular: Denies chest pain Respiratory: Respiratory: Reports cough and Reports dyspnea on exertion Gastrointestinal: Gastrointestinal: Reports abdominal pain and Reports vomiting Genitourinary: Genitourinary: Denies dysuria Musculoskeletal: Musculoskeletal: Denies neck pain Integumentary/Breasts: Skin/Breast: Denies rash Neurologic: Denies Abnormal speech present Psychiatric: Psychiatric: Denies behavioral changes [facility] Past Medical History Medical History (Updated 08/01/25 @ 16:59 by Feliciano Mcgee MD) Acute on chronic anemia 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. Code status;: Full code Smoking packs per day: 1 Smoking cigarettes per day: 20.0 Years smoked: 15 Smoking pack-years: 15.00 Smoking status: Former smoker Tobacco type: cigarettes and pipe Smoking end date: 11/27/69 Additional smoking assessment comments: Smoked pipe for 20 year after quit so Alcohol intake: former Drinks per week: 1 Substance use: never Substance use type: does not use Lack of Transportation: No Lack of Food: Never True Current Housing: I Have Housing Concerned About Future Housing: No Difficulty Paying Gas/Electric Bills: No Difficulty Paying for Meds: No Currently Unemployed: No Education: Master's Degree or Higher Difficulty w/ Childcare or Family Care: YES Spiritual care concerns: No Meds Home Medications and Allergies Home Medications ?Medication ?Instructions ?Recorded ?Confirmed ?Type amiodarone 200 mg tablet 200 mg PO BID 08/01/25 08/01/25 History apixaban 5 mg tablet (Eliquis) 5 mg PO BID 08/01/25 08/01/25 History aspirin 81 mg tablet 81 mg PO ONCE 08/01/25 08/01/25 History carbamazepine 100 mg/5 mL oral 150 mg PO DAILY@1700 08/01/25 08/01/25 History suspension (Tegretol) carbamazepine 200 mg tablet 300 mg PO DAILY 08/01/25 08/01/25 History (Tegretol) furosemide 20 mg tablet 20 mg PO DAILY@0800 08/01/25 08/01/25 History levetiracetam 250 mg tablet 250 mg PO DAILY 08/01/25 08/01/25 History (Keppra) levothyroxine 150 mcg tablet 150 mcg PO DAILY@0630 08/01/25 08/01/25 History metoprolol tartrate 25 mg tablet 25 mg PO BID 08/01/25 08/01/25 History pouoljfz-ip-manvb 300 mcg-K 60 1 tablet PO DAILY 08/01/25 08/01/25 History mcg-lycop 600 mcg-lutein 300 mcg tablet (Centrum Silver Men) spironolactone 25 mg tablet 25 mg PO DAILY 08/01/25 08/01/25 History tamsulosin 0.4 mg capsule 0.4 mg PO Q24H 08/01/25 08/01/25 History vit C,W-Wd-boxovq-lutein-zeaxan 60 1 cap PO DAILY 08/01/25 08/01/25 History mg-13.5 mg-15 mg-2 mg-6 mg capsule (Ocuvite Lutein and Zeaxanthin) Allergies Allergy/AdvReac Type Severity Reaction Status Date / Time banana Allergy Rash Verified 07/31/25 21:18 clarithromycin (From Biaxin) Allergy Unknown Verified 07/31/25 21:18 Penicillins Allergy Unknown Verified 07/31/25 21:18 piperacillin (From Zosyn) Allergy Unknown Verified 07/31/25 21:18 ramipril Allergy Unknown Verified 07/31/25 21:18 tazobactam (From Zosyn) Allergy Unknown Verified 07/31/25 21:18 vancomycin Allergy Unknown Verified 07/31/25 21:18 Vital Signs Vital Signs - 24 hr 07/31/25 21:02 07/31/25 21:12 07/31/25 21:21 Temperature 103 F H Pulse Rate 117 H 110 H Respiratory Rate 36 H Blood Pressure 114/48 L Pulse Oximetry 95 99 Oxygen Delivery Room Air Nasal Cannula Oxygen Flow Rate 2 07/31/25 22:00 07/31/25 22:00 07/31/25 23:31 Temperature 99.0 F 99.0 F Pulse Rate 110 H Respiratory Rate 20 Blood Pressure 110/79 Pulse Oximetry 97 98 Oxygen Delivery Room Air Oxygen Flow Rate 07/31/25 23:45 08/01/25 00:00 08/01/25 00:00 Temperature 98.3 F Pulse Rate 123 H 114 H 113 H Respiratory Rate 18 18 Blood Pressure 115/54 L Pulse Oximetry 99 99 Oxygen Delivery Room Air Oxygen Flow Rate 08/01/25 00:32 08/01/25 02:00 08/01/25 04:00 Temperature Pulse Rate 114 H 89 75 Respiratory Rate Blood Pressure Pulse Oximetry Oxygen Delivery Oxygen Flow Rate 08/01/25 04:00 08/01/25 04:47 08/01/25 06:00 Temperature 98.1 F Pulse Rate 75 86 80 Respiratory Rate 18 Blood Pressure 113/62 Pulse Oximetry 100 Oxygen Delivery Room Air Oxygen Flow Rate 08/01/25 08:00 08/01/25 08:15 08/01/25 08:26 Temperature 97.8 F Pulse Rate 72 87 82 Respiratory Rate 21 H 16 16 Blood Pressure 103/46 L Pulse Oximetry 100 Oxygen Delivery Oxygen Flow Rate 08/01/25 08:27 08/01/25 08:35 08/01/25 09:57 Temperature Pulse Rate 87 85 83 Respiratory Rate 14 14 Blood Pressure Pulse Oximetry 95 100 Oxygen Delivery Nasal Cannula Oxygen Flow Rate 3 2 08/01/25 09:57 08/01/25 10:47 08/01/25 11:03 Temperature 98.4 F 97.8 F Pulse Rate 84 82 77 Respiratory Rate 28 H 20 Blood Pressure 116/44 L 117/51 L Pulse Oximetry 100 100 Oxygen Delivery Oxygen Flow Rate 08/01/25 12:00 08/01/25 12:03 08/01/25 12:38 Temperature 98.3 F 98.3 F 97.8 F Pulse Rate 73 73 72 Respiratory Rate 26 H 26 H 26 H Blood Pressure 110/45 L 110/45 L 113/45 L Pulse Oximetry 100 100 100 Oxygen Delivery Oxygen Flow Rate 08/01/25 14:32 08/01/25 14:49 08/01/25 16:00 Temperature 97.5 F L Pulse Rate 76 Respiratory Rate 24 H Blood Pressure 128/49 L Pulse Oximetry 100 Oxygen Delivery Nasal Cannula Nasal Cannula Oxygen Flow Rate 2 2 08/01/25 16:50 Temperature Pulse Rate 73 Respiratory Rate Blood Pressure Pulse Oximetry Oxygen Delivery Oxygen Flow Rate Exam Const: General: comfortable and no acute distress HENMT: Face/Nose/Sinus: Normal nares present Eyes: General: appearance normal, both eyes and all related structures Neck: Neck: supple Resp: Auscultation: clear to auscultation bilaterally Cardio: Rate: regular rate Rhythm: regular rhythm GI: Inspection: non-distended GI Palp: Yes Soft to palpation and No Tenderness to palpation present (GI) Skin: General skin exam: normal color Neuro: Speech: normal speech Motor exam (neuro): 5/5 motor strength present throughout Extrem: General: normal to inspection Psych: Mental Status: mental status grossly normal Results Labs 08/01/25 10:48 08/01/25 04:14 Labs: Short CBC 07/31/25 07/31/25 08/01/25 Range/Units 21:39 22:53 04:14 WBC 14.3 H 12.6 H (4.5-10.0) K/mm3 Hgb 7.8 L 8.7 L 6.7 L* (14.0-18.0) g/dL Hct 24.8 L 27.0 L 21.0 L (42.0-52.0) % Plt Count 354 289 (150-375) k/mm3 08/01/25 08/01/25 Range/Units 05:13 10:48 WBC (4.5-10.0) K/mm3 Hgb 6.9 L* 7.1 L (14.0-18.0) g/dL Hct 22.2 L 22.2 L (42.0-52.0) % Plt Count (150-375) k/mm3 BMP 07/31/25 08/01/25 21:39 04:14 Sodium 129 L 130 L Potassium 4.4 4.1 Chloride 96 L 100 Carbon Dioxide 23 23 BUN 39 H 38 H Creatinine 1.53 H 1.39 H Glucose 144 H 111 H Calcium 8.2 L 8.0 L Liver Function 07/31/25 Range/Units 21:39 Total Bilirubin 0.8 (0.2-1.3) mg/dL AST 98 H (17-59) U/L ALT 88 H (6-50) U/L Alkaline Phosphatase 668 H (38-126) U/L Albumin 3.4 L (3.5-5.1) g/dL Urine 07/31/25 Range/Units 23:10 Urine Color Dark yellow (Yellow) Urine Appearance Clear (Clear) Urine pH 5.0 (5.0-9.0) Ur Specific [place] 1.027 (1.001-1.035) Urine Protein Negative (Negative) mg/dL Urine Glucose (UA) Negative (Negative) mg/dL
[2025-08-01 17:52] LABS: Hematocrit 25.0 % (42.0-52.0); Hemoglobin 7.8 g/dL (14.0-18.0)
[2025-08-01] MEDS: TAMSULOSIN HCL 0.4 MG CAPSULE PO ×2 (20:33→22:09)
[2025-08-01] MEDS: PANTOPRAZOLE SODIUM IV 40 MG VIAL IV PUSH (20:33)
[2025-08-01] MEDS: cefTRIAXone 1 GM in SODIUM CHLORIDE 0.9% IV 50 ML 100 ML IVPB (22:08)
[2025-08-02] VITALS (35 sets, daily range): BP systolic 107–143; BP diastolic 44–69; PULSE 51–132; RESP 15–24; TEMP 34.9–37.1; O2SAT 95–100
[2025-08-02 01:33] LABS: Hematocrit 21.8 % (42.0-52.0); Immature Granulocyte Percent A 0.5 % (0-0.5); Lymphocytes Absolute Auto 1.15 K/mm3 (0.9-3.2); Mean Corpuscular HGB Conc 31.7 g/dl (32-36); Mean Corpuscular Hemoglobin 28.4 pg (26-34); Mean Corpuscular Volume 89.7 fl (80-100); Nucleated Red Blood Cells Absolute Auto 0.000 K/mm3 (0.0-0.012); Nucleated Red Blood Cells Perc 0.0 % (0.0-0.2); Platelet Count Result 259 k/mm3 (150-375); Red Blood Count 2.43 M/mm3 (4.6-6.20); White Blood Count 12.5 K/mm3 (4.5-10.0)
[2025-08-02 01:35] LABS: Alanine Aminotransferase 63 U/L (6-50); Albumin Level 2.8 g/dL (3.5-5.1); Alkaline Phosphatase 492 U/L (38-126); Anion Gap 6 mmol/L (4-12); Aspartate Amino Transferase 72 U/L (17-59); Bilirubin,Total 0.4 mg/dL (0.2-1.3); Blood Urea Nitrogen 35 mg/dL (9-20); Calcium 7.8 mg/dL (8.4-10.2); Carbon Dioxide 24 mmol/L (22-30); Chloride 101 mmol/L (98-107); Estimated CRCL calculation 43 ml/min; Estimated Glomerular Filt Rate > 60; Glucose 95 mg/dL (65-110); Magnesium 2.4 mg/dL (1.6-2.3); Potassium 3.5 mmol/L (3.4-5.0); Sodium 131 mmol/L (137-145); Total Protein 5.9 g/dL (6.3-8.2)
[2025-08-02 01:50] LABS: Hemoglobin 6.9 g/dL (14.0-18.0)
[2025-08-02] MEDS: DOXYCYCLINE IV 100 MG in SODIUM CHLORIDE 0.9% IV 100 ML IVPB ×2 (01:56→14:43)
[2025-08-02] MEDS: IPRATROPIUM 0.5 MG/ALBUTEROL SULFATE 2.5 MG AMPUL.NEB 3 ML INHALATION ×5 (02:45→21:33)
[2025-08-02] MEDS: FUROSEMIDE INJ 40 MG/4 ML VIAL 20 MG IV PUSH (03:34)
[2025-08-02] MEDS: TUBING, BLOOD PLUM PUMP TUBING 1 EACH XX (03:37)
[2025-08-02] MEDS: SODIUM CHLORIDE 0.9% IV 250 ML 30 ML IV CONT (03:37)
[2025-08-02 06:25] LABS: Hematocrit 26.1 % (42.0-52.0); Hemoglobin 8.2 g/dL (14.0-18.0)
[2025-08-02] MEDS: LEVOTHYROXINE SODIUM 150 MCG TABLET PO (06:45)
[2025-08-02 09:08] LABS: Carbamazepine (Tegretol) <0.5 ug/mL (4.0-12.0)
[2025-08-02] MEDS: OPTI-GEN TAB 1 TABLET PO (09:09)
[2025-08-02] MEDS: METOPROLOL TARTRATE 25 MG TABLET PO ×2 (09:09→20:09)
[2025-08-02] MEDS: SPIRONOLACTONE 25 MG TABLET PO (09:10)
[2025-08-02] MEDS: PANTOPRAZOLE SODIUM IV 40 MG VIAL IV PUSH ×2 (09:10→20:10)
--- NOTE | 2025-08-02 13:37 | PM.IMPN ---
Progress Note: A&P Assessment and Plan (1) Lobar pneumonia: Code(s): J18.1 - Lobar pneumonia, unspecified organism Status: Acute Assessment and Plan: Treated with IV fluids. -lactic was elevated at 2.5 and then came down to 1.6 with IV fluids. -routine nebulizer treatments. -continue with Rocephin and doxycycline IV antibiotics. -sputum culture pending (2) Atrial fibrillation: Code(s): I48.91 - Unspecified atrial fibrillation Status: Acute Assessment and Plan: -the patient remains in AFib with controlled heart rate -continue with Eliquis -continue with amiodarone With due to drop in H&H will hold Eliquis (3) Hyponatremia: Code(s): E87.1 - Hypo-osmolality and hyponatremia Status: Acute Assessment and Plan: -continue with IV fluids -check urine and serum osmolality -Lasix on hold -it was reported that the patient has some type of liver cancer. However cannot find it in his records and I was unable to reach [facility] at the [facility] that could verify this. This could also be another source of hyponatremia -continue to monitor renal function (4) Hypothyroidism: Code(s): E03.9 - Hypothyroidism, unspecified Status: Acute Assessment and Plan: -continue replacement (5) Acute upper GI bleed: Code(s): K92.2 - Gastrointestinal hemorrhage, unspecified Status: Acute Assessment and Plan: -check stool for occult blood -continue to monitor H&H -his initial H&H was 7.8 and 24.8. Repeat level was 8.7 and 27.0. Now he is 6.7 and 21.0 -he is hemodynamically stable. -it was reported that the patient had a coffee-ground emesis in the emergency room. -the patient is on Eliquis for AFib -hold Eliquis -GI has been consulted. Awaiting recommendation. Transfuse 1 unit of PRBC 08/01/2025 Needed another transfusion 08/02/2025 On Protonix IV b.i.d. No signs of active GI bleed Nuclear bleeding scan was negative (6) History of liver disease: Code(s): Z87.19 - Personal history of other diseases of the digestive system Status: Acute Assessment and Plan: -it was reported that the patient has possible liver cancer. Get records. May consider CT of the abdomen. -liver enzymes are elevated (7) BPH (benign prostatic hyperplasia): Code(s): N40.0 - Benign prostatic hyperplasia without lower urinary tract symptoms Status: Acute Assessment and Plan: -continue with Flomax (8) Seizure disorder: Code(s): G40.909 - Epilepsy, unspecified, not intractable, without status epilepticus Status: Acute Assessment and Plan: -continue with Keppra and Tegretol -check Keppra and Tegretol levels. -the dosages on his seizure medicine came from his home list. (9) Acute renal failure: Code(s): N17.9 - Acute kidney failure, unspecified Status: Acute Assessment and Plan: -could be related to the Lasix -the patient could also be dehydrated from his fever and or poor oral intake. - Plan Dysphagia modified barium swallow performed mild dysesthesia with single episode of laryngeal penetration without aspiration. On dysphagia diet now. Subjective Date/time seen: 08/02/25 13:37 Interval history: No overnight events. H&H dropped this a.m. and received 1 unit of packed red blood cell transfusion. No dark stool or coffee-ground emesis. Feels better. Review of Systems Review of Systems: All systems reviewed & are unremarkable except as noted in HPI and below Exam Narrative: General: Alert, awake, in no acute distress. HEENT: PERRL, no rhinorrhea, no post nasal drip, oropharynx clear. Neck: Trachea midline, no JVD, no lymphadenopathy. Cardiovascular: Regular rate and rhythm, no murmurs, rubs or gallops, no peripheral edema. Respiratory: Clear to auscultation bilaterally, no tachypnea, no wheezing, no rhonchi, no rubs, no respiratory distress. Abdomen: Soft, nontender, nondistended, no rebound, no guarding, no peritoneal signs. Musculoskeletal: No joint swelling or deformity, normal muscle tone. Skin: No rashes or petechia, no signs of infection. Psychiatric: Alert and oriented, normal behavior and judgment for situation. Neurological: Alert and oriented to person, place, and time. Follows all commands. No focal deficits, speech is clear and fluent. Objective Data Vital Signs Vital Signs: Vital Signs - 24 hr 08/01/25 14:00 08/01/25 14:32 08/01/25 14:49 Temperature Pulse Rate 73 Respiratory Rate Blood Pressure Pulse Oximetry Oxygen Delivery Nasal Cannula Nasal Cannula Oxygen Flow Rate 2 2 08/01/25 16:00 08/01/25 16:00 08/01/25 16:00 Temperature 97.5 F L Pulse Rate 76 84 Respiratory Rate 24 H Blood Pressure 128/49 L Pulse Oximetry 100 100 Oxygen Delivery Nasal Cannula Oxygen Flow Rate 2 08/01/25 16:50 08/01/25 18:00 08/01/25 20:00 Temperature Pulse Rate 73 84 Respiratory Rate Blood Pressure Pulse Oximetry 95 Oxygen Delivery Nasal Cannula Oxygen Flow Rate 2 08/01/25 20:00 08/01/25 20:08 08/01/25 20:33 Temperature 98.0 F Pulse Rate 83 76 76 Respiratory Rate 20 Blood Pressure 121/49 L Pulse Oximetry 95 Oxygen Delivery Oxygen Flow Rate 08/01/25 20:52 08/01/25 21:01 08/01/25 21:03 Temperature Pulse Rate 76 80 88 Respiratory Rate 20 20 20 Blood Pressure Pulse Oximetry 95 Oxygen Delivery Nasal Cannula Oxygen Flow Rate 2 08/01/25 22:00 08/01/25 23:42 08/02/25 00:00 Temperature Pulse Rate 74 74 Respiratory Rate Blood Pressure Pulse Oximetry 100 Oxygen Delivery Nasal Cannula Oxygen Flow Rate 2 08/02/25 00:01 08/02/25 02:00 08/02/25 02:48 Temperature 98.7 F Pulse Rate 73 75 73 Respiratory Rate 15 20 Blood Pressure 130/52 L Pulse Oximetry 100 Oxygen Delivery Oxygen Flow Rate 08/02/25 03:15 08/02/25 03:32 08/02/25 03:47 Temperature 98.2 F 98.3 F Pulse Rate 84 78 Respiratory Rate 22 H 20 Blood Pressure 125/51 L 118/44 L Pulse Oximetry 97 98 96 Oxygen Delivery Room Air Oxygen Flow Rate 08/02/25 04:00 08/02/25 04:47 08/02/25 05:41 Temperature 98.5 F 98.4 F Pulse Rate 87 74 73 Respiratory Rate 20 20 Blood Pressure 112/46 L 121/44 L Pulse Oximetry 99 95 Oxygen Delivery Oxygen Flow Rate 08/02/25 06:00 08/02/25 08:18 08/02/25 08:27 Temperature 94.8 F L Pulse Rate 73 75 74 Respiratory Rate 18 16 Blood Pressure 115/49 L Pulse Oximetry 97 Oxygen Delivery Oxygen Flow Rate 08/02/25 08:30 08/02/25 08:31 08/02/25 09:09 Temperature Pulse Rate 95 77 Respiratory Rate 18 Blood Pressure Pulse Oximetry 97 Oxygen Delivery Autopap Oxygen Flow Rate 08/02/25 12:27 Temperature 98.8 F Pulse Rate 77 Respiratory Rate 24 H Blood Pressure 124/48 L Pulse Oximetry 96 Oxygen Delivery Oxygen Flow Rate Intake/Output Intake/Output: Intake & Output 07/30/25 07/31/25 08/01/25 08/02/25 23:59 23:59 23:59 23:59 Intake Total 1000 1020 523 Output Total 300 500 Balance 1000 720 23 Meds/Results Medications: Active Medications Generic Name Dose Route Start Last Admin Trade Name Freq PRN Reason Stop Dose Admin Albuterol/Ipratropium 3 ml 08/01/25 08:00 08/02/25 08:27 Ipratropium 0.5 Mg/Albuterol Sulfate 2.5 Mg Ampul.Neb 3 Ml INHALATION 3 ml Q6HRT ROSMERY Administration Amiodarone HCl 200 mg 08/02/25 08:00 Amiodarone Hcl 200 Mg Tablet PO On Hold: 08/02/25 08:00 DAILY@0800 ROSMERY Guaifenesin/Dextromethorphan 10 ml 08/01/25 04:21 08/02/25 09:09 Guaifenesin/Dextromethorphan 10 Ml Udc PO 10 ml Q4H PRN Administration Cough Ceftriaxone Sodium 1 gm/ 50 mls @ 100 mls/hr 08/01/25 23:00 08/01/25 22:38 Sodium Chloride IVPB Infused Q24H ROSMERY Infusion Doxycycline Hyclate 100 mg/ 100 mls @ 100 mls/hr 08/01/25 14:00 08/02/25 01:56 Sodium Chloride IVPB 08/06/25 02:59 100 mls/hr Q12H ROSMERY Administration Levetiracetam 250 mg 08/01/25 18:15 Levetiracetam 250 Mg Tablet PO DAILY PRN trigeminal neuralgia Levothyroxine Sodium 150 mcg 08/01/25 06:30 08/02/25 06:45 Levothyroxine Sodium 150 Mcg Tablet PO 150 mcg DAILY@0630 ROSMERY Administration Metoprolol Tartrate 25 mg 08/01/25 09:00 08/02/25 09:09 Metoprolol Tartrate 25 Mg Tablet PO 25 mg Q12HR ROSMERY Administration Multivitamins/Minerals 1 tablet 08/01/25 09:00 08/02/25 09:09 Opti-Gen Tab PO 1 tablet DAILY ROSMERY Administration Oxcarbazepine 600 mg 08/01/25 21:00 08/02/25 09:10 Oxcarbazepine 300 Mg Tablet PO 600 mg Q12HR ROSMERY Administration Oxcarbazepine 150 mg 08/02/25 15:00 Oxcarbazepine 150 Mg Tablet PO DAILY ROSMERY Pantoprazole Sodium 40 mg 08/01/25 21:00 08/02/25 09:10 Pantoprazole Sodium Iv 40 Mg Vial IV PUSH 40 mg Q12HR ROSMERY Administration Polyethylene Glycol 17 gm 08/02/25 09:00 08/02/25 09:10 Polyethylene Glycol 3350 17 Gm Powd.Pack PO 17 gm QAM ROSMERY Administration Spironolactone 25 mg 08/01/25 09:00 08/02/25 09:10 Spironolactone 25 Mg Tablet PO 25 mg DAILY ROSMERY Administration Tamsulosin HCl 0.8 mg 08/02/25 21:00 Tamsulosin Hcl 0.4 Mg Capsule PO HS [facility] Radiology Results: ITS Impressions Chest X-Ray 07/31/25 21:56 Impression: 1: Airspace disease left mid and lower lung which is compatible with pneumonia. 2: Small right pleural effusion versus pleural thickening. Modified Barium Swallow 08/01/25 09:35 IMPRESSION: Mild pharyngeal dysphagia with single episode of laryngeal penetration without aspiration due to reduced laryngeal elevation. Please correlate with speech pathologist findings and specific feeding recommendations. GI Bleed Scan Nuclear Medicine 08/01/25 16:18 IMPRESSION: 1. No scintigraphic evidence for active gastrointestinal bleeding. Labs Labs: Laboratory Results - last 24 hr 07/31/25 08/01/25 08/01/25 22:54 04:14 17:48 WBC RBC Hgb 7.8 L Hct 25.0 L MCV MCH MCHC RDW Plt Count MPV Immature Gran % (Auto) Neut % (Auto) Lymph % (Auto) [place] % (Auto) Eos % (Auto) Baso % (Auto) Lymph # (Auto) [place] # (Auto) Eos # (Auto) Baso # (Auto) Abs Immat Gran (auto) Absolute Neuts (auto) Absolute Nucleated RBC Nucleated RBC % Sodium Potassium Chloride Carbon Dioxide Anion Gap BUN Creatinine Estim Creat Clear Calc Estimated GFR Glucose Calcium Magnesium Total Bilirubin AST ALT Alkaline Phosphatase Total Protein Albumin Carbamazepine <0.5 L Blood Type A Positive Antibody Screen Negative Crossmatch See Detail 08/02/25 08/02/25 01:09 06:05 WBC 12.5 H RBC 2.43 L Hgb 6.9 L* 8.2 L Hct 21.8 L 26.1 L MCV 89.7 MCH 28.4 MCHC 31.7 L RDW 17.4 H Plt Count 259 MPV 9.4 Immature Gran % (Auto) 0.5 Neut % (Auto) 78.0 H Lymph % (Auto) 9.2 L [place] % (Auto) 6.5 Eos % (Auto) 5.3 H Baso % (Auto) 0.5 Lymph # (Auto) 1.15 [place] # (Auto) 0.8 H Eos # (Auto) 0.7 H Baso # (Auto) 0.1 Abs Immat Gran (auto) 0.06 H Absolute Neuts (auto) 9.8 H Absolute Nucleated RBC 0.000 Nucleated RBC % 0.0 Sodium 131 L Potassium 3.5 Chloride 101 Carbon Dioxide 24 Anion Gap 6 BUN 35 H Creatinine 1.13 Estim Creat Clear Calc 43 Estimated GFR > 60 Glucose 95 Calcium 7.8 L Magnesium 2.4 H Total Bilirubin 0.4 AST 72 H ALT 63 H Alkaline Phosphatase 492 H Total Protein 5.9 L Albumin 2.8 L Carbamazepine Blood Type Antibody Screen Crossmatch
--- NOTE | 2025-08-02 16:25 | PC.NURSE ---
On 08/02/25, the student, Jewell Jeong, provided care and completed [facility] documentation on this patient. I have reviewed the student's documentation and agree with the findings.
[2025-08-02 18:16] LABS: Hematocrit 26.1 % (42.0-52.0); Hemoglobin 8.3 g/dL (14.0-18.0)
[2025-08-02] MEDS: TAMSULOSIN HCL 0.4 MG CAPSULE 0.8 MG PO (20:09)
[2025-08-02] MEDS: cefTRIAXone 1 GM in SODIUM CHLORIDE 0.9% IV 50 ML 100 ML IVPB (22:00)
--- NOTE | 2025-08-02 22:10 | ECG_ITS ---
Test Date: 2025-08-02 22:22:21 Measurements Intervals [place] Rate: 123 P: 0 NM: 0 QRS: -54 QRSD: 162 T: 77 QT: 373 QTc: 536 Interpretive Statements ATRIAL FIBRILLATION WITH RAPID VENTRICULAR RESPONSE INTRAVENTRICULAR CONDUCTION DELAY [130+ ms QRS DURATION] Compared to ECG 07/31/2025 21:16:27 Intraventricular conduction delay now present Ventricular premature complex(es) no longer present Aberrant conduction of supraventricular beat(s) no longer present Right-axis deviation no longer present Right bundle-branch block no longer present Electronically Signed On 08-03-2025 15:57:50 CDT by Jagjit Cabral M.D.
--- NOTE | 2025-08-02 22:32 | PC.NURSE ---
Addendum entered by Kimberly Calixto RN 08/02/25 23:40: 2340: pt HR remains under 100 Addendum entered by Kimberly Calixto RN 08/02/25 23:15: 2230: New orders, cxr, labs. IV Metoprolo; HR now in 90s-100. Pt denies symptoms. Will continue to monitor Original Note: 2209: pt episode of vtach; asymptomatic. On tele showing 120s to 140 afib. Hospitaist notified. EKG done. result communicated to hospitalist.
[2025-08-02] MEDS: METOPROLOL TARTRATE INJ 5 MG/5 ML VIAL 2.5 MG IV PUSH (23:00)
[2025-08-02 23:27] LABS: Anion Gap 8 mmol/L (4-12); Blood Urea Nitrogen 30 mg/dL (9-20); Calcium 8.1 mg/dL (8.4-10.2); Carbon Dioxide 23 mmol/L (22-30); Chloride 101 mmol/L (98-107); Estimated CRCL calculation 41 ml/min; Estimated Glomerular Filt Rate 59; Glucose 124 mg/dL (65-110); Magnesium 2.2 mg/dL (1.6-2.3); Potassium 3.7 mmol/L (3.4-5.0); Sodium 132 mmol/L (137-145)
[2025-08-03] VITALS (20 sets, daily range): BP systolic 124–147; BP diastolic 55–78; PULSE 50–120; RESP 16–20; TEMP 36.2–36.7; O2SAT 94–98
[2025-08-03] MEDS: DOXYCYCLINE IV 100 MG in SODIUM CHLORIDE 0.9% IV 100 ML IVPB ×2 (02:25→15:04)
[2025-08-03] MEDS: IPRATROPIUM 0.5 MG/ALBUTEROL SULFATE 2.5 MG AMPUL.NEB 3 ML INHALATION ×3 (03:21→14:26)
[2025-08-03] MEDS: LEVOTHYROXINE SODIUM 150 MCG TABLET PO (05:24)
[2025-08-03 05:42] LABS: Hematocrit 24.9 % (42.0-52.0); Hemoglobin 8.1 g/dL (14.0-18.0); Immature Granulocyte Percent A 0.8 % (0-0.5); Lymphocytes Absolute Auto 0.78 K/mm3 (0.9-3.2); Mean Corpuscular HGB Conc 32.5 g/dl (32-36); Mean Corpuscular Hemoglobin 28.5 pg (26-34); Mean Corpuscular Volume 87.7 fl (80-100); Nucleated Red Blood Cells Absolute Auto 0.000 K/mm3 (0.0-0.012); Nucleated Red Blood Cells Perc 0.0 % (0.0-0.2); Platelet Count Result 272 k/mm3 (150-375); Red Blood Count 2.84 M/mm3 (4.6-6.20); White Blood Count 13.3 K/mm3 (4.5-10.0)
[2025-08-03 05:57] LABS: Alanine Aminotransferase 64 U/L (6-50); Albumin Level 2.9 g/dL (3.5-5.1); Alkaline Phosphatase 658 U/L (38-126); Anion Gap 7 mmol/L (4-12); Aspartate Amino Transferase 87 U/L (17-59); Bilirubin,Total 0.5 mg/dL (0.2-1.3); Blood Urea Nitrogen 29 mg/dL (9-20); Calcium 7.9 mg/dL (8.4-10.2); Carbon Dioxide 22 mmol/L (22-30); Chloride 103 mmol/L (98-107); Estimated CRCL calculation 48 ml/min; Estimated Glomerular Filt Rate > 60; Glucose 110 mg/dL (65-110); Magnesium 2.2 mg/dL (1.6-2.3); Potassium 3.9 mmol/L (3.4-5.0); Sodium 132 mmol/L (137-145); Total Protein 6.3 g/dL (6.3-8.2)
[2025-08-03] MEDS: SPIRONOLACTONE 25 MG TABLET PO (08:18)
[2025-08-03] MEDS: AMIODARONE HCL 200 MG TABLET PO (08:18)
[2025-08-03] MEDS: METOPROLOL TARTRATE 25 MG TABLET PO ×3 (08:18→22:04)
[2025-08-03] MEDS: OPTI-GEN TAB 1 TABLET PO (08:19)
[2025-08-03] MEDS: PANTOPRAZOLE SODIUM IV 40 MG VIAL IV PUSH ×2 (08:40→20:35)
--- NOTE | 2025-08-03 09:25 | PCOTNOTE ---
Attempted to see pt for OT treatment. Pt declined to participate in any self care or therapeutic tasks due to having aches and pain all over body. Therapist offered to discuss with pt's RN about pain, however, pt declined this as well. Pt is educated on importance of mobility to increase strengthening with no success. Will continue per poc duration/frequency.
[2025-08-03] MEDS: ACETAMINOPHEN 325 MG TABLET 650 MG PO ×3 (10:12→20:15)
--- NOTE | 2025-08-03 11:31 | PCSTNOTE ---
ST attempted this morning. Pt. politely refused stating he was tire and I don't feel like doing anything.
--- NOTE | 2025-08-03 12:06 | P.PNIM_ITS ---
Progress Note: A&P Assessment and Plan (1) Lobar pneumonia: Code(s): J18.1 - Lobar pneumonia, unspecified organism Status: Acute Assessment and Plan: Treated with IV fluids. -lactic was elevated at 2.5 and then came down to 1.6 with IV fluids. -routine nebulizer treatments. -continue with Rocephin and doxycycline IV antibiotics. -sputum culture pending (2) Atrial fibrillation: Code(s): I48.91 - Unspecified atrial fibrillation Status: Acute Assessment and Plan: -the patient remains in AFib with controlled heart rate -continue with Eliquis -continue with amiodarone With due to drop in H&H will hold Eliquis (3) Hyponatremia: Code(s): E87.1 - Hypo-osmolality and hyponatremia Status: Acute Assessment and Plan: -continue with IV fluids -check urine and serum osmolality -Lasix on hold -it was reported that the patient has some type of liver cancer. However cannot find it in his records and I was unable to reach anybody at the group home that could verify this. This could also be another source of hyponatremia -continue to monitor renal function (4) Hypothyroidism: Code(s): E03.9 - Hypothyroidism, unspecified Status: Acute Assessment and Plan: -continue replacement (5) Acute upper GI bleed: Code(s): K92.2 - Gastrointestinal hemorrhage, unspecified Status: Acute Assessment and Plan: -check stool for occult blood -continue to monitor H&H -his initial H&H was 7.8 and 24.8. Repeat level was 8.7 and 27.0. Now he is 6.7 and 21.0 -he is hemodynamically stable. -it was reported that the patient had a coffee-ground emesis in the emergency room. -the patient is on Eliquis for AFib -hold Eliquis -GI has been consulted. Awaiting recommendation. Transfuse 1 unit of PRBC 08/01/2025 Needed another transfusion 08/02/2025 On Protonix IV b.i.d. No signs of active GI bleed Nuclear bleeding scan was negative H&H now stable (6) History of liver disease: Code(s): Z87.19 - Personal history of other diseases of the digestive system Status: Acute Assessment and Plan: -it was reported that the patient has possible liver cancer. Get records. May consider CT of the abdomen. -liver enzymes are elevated (7) BPH (benign prostatic hyperplasia): Code(s): N40.0 - Benign prostatic hyperplasia without lower urinary tract symptoms Status: Acute Assessment and Plan: -continue with Flomax (8) Seizure disorder: Code(s): G40.909 - Epilepsy, unspecified, not intractable, without status epilepticus Status: Acute Assessment and Plan: -continue with Keppra and Tegretol -check Keppra and Tegretol levels. -the dosages on his seizure medicine came from his home list. (9) Acute renal failure: Code(s): N17.9 - Acute kidney failure, unspecified Status: Acute Assessment and Plan: -could be related to the Lasix -the patient could also be dehydrated from his fever and or poor oral intake. - Plan Dysphagia modified barium swallow performed mild dysesthesia with single episode of laryngeal penetration without aspiration. On dysphagia diet now. 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 Subjective Date/time seen: 08/03/25 12:06 Interval history: Patient does not feel well today. Reports right upper quadrant abdominal pain. No nausea appetite is down. Has not had any bowel movement. No fever chills. Mild cough improving. He went into AFib with RVR last night. Received IV metoprolol 1 time dose. His heart rate has been stable since then. Review of Systems Review of Systems: All systems reviewed & are unremarkable except as noted in HPI and below Exam Narrative: General: Alert, awake, in no acute distress. HEENT: PERRL, no rhinorrhea, no post nasal drip, oropharynx clear. Neck: Trachea midline, no JVD, no lymphadenopathy. Cardiovascular: Regular rate and rhythm, no murmurs, rubs or gallops, no peripheral edema. Respiratory: Clear to auscultation bilaterally, no tachypnea, no wheezing, no rhonchi, no rubs, no respiratory distress. Abdomen: Soft, mildly tender right upper quadrant, nondistended, no rebound, no guarding, no peritoneal signs. Musculoskeletal: No joint swelling or deformity, normal muscle tone. Skin: No rashes or petechia, no signs of infection. Psychiatric: Alert and oriented, normal behavior and judgment for situation. Neurological: Alert and oriented to person, place, and time. Follows all commands. No focal deficits, speech is clear and fluent. Objective Data Vital Signs Vital Signs: Vital Signs - 24 hr 08/02/25 12:27 08/02/25 14:01 08/02/25 14:04 Temperature 98.8 F Pulse Rate 77 98 78 Respiratory Rate 24 H 16 16 Blood Pressure 124/48 L Pulse Oximetry 96 Oxygen Delivery 08/02/25 16:00 08/02/25 16:37 08/02/25 19:34 Temperature 98.1 F Pulse Rate 76 74 90 Respiratory Rate 22 H Blood Pressure 124/51 L Pulse Oximetry 99 Oxygen Delivery 08/02/25 20:04 08/02/25 20:09 08/02/25 21:22 Temperature 98.4 F Pulse Rate 93 84 85 Respiratory Rate 20 Blood Pressure 143/61 H Pulse Oximetry 97 Oxygen Delivery 08/02/25 21:33 08/02/25 21:38 08/02/25 21:40 Temperature Pulse Rate 70 70 Respiratory Rate 16 16 Blood Pressure Pulse Oximetry 98 Oxygen Delivery Room Air 08/02/25 22:10 08/02/25 22:16 08/02/25 22:40 Temperature Pulse Rate 132 H 51 L 126 H Respiratory Rate Blood Pressure 107/54 L 120/69 Pulse Oximetry 95 Oxygen Delivery 08/02/25 23:00 08/03/25 00:00 08/03/25 03:22 Temperature Pulse Rate 126 H 85 70 Respiratory Rate 16 Blood Pressure Pulse Oximetry Oxygen Delivery 08/03/25 03:27 08/03/25 04:00 08/03/25 06:21 Temperature 97.9 F Pulse Rate 70 114 H 50 L Respiratory Rate 16 16 Blood Pressure 127/72 Pulse Oximetry 94 Oxygen Delivery 08/03/25 07:47 08/03/25 07:47 08/03/25 08:00 Temperature Pulse Rate 77 99 Respiratory Rate 16 Blood Pressure Pulse Oximetry 98 Oxygen Delivery Room Air 08/03/25 08:18 08/03/25 08:18 Temperature Pulse Rate 94 94 Respiratory Rate Blood Pressure Pulse Oximetry Oxygen Delivery Intake/Output Intake/Output: Intake & Output 07/31/25 08/01/25 08/02/25 08/03/25 23:59 23:59 23:59 23:59 Intake Total 1000 1020 1443 440 Output Total 300 1400 350 Balance 1000 720 43 90 Meds/Results Medications: Active Medications Generic Name Dose Route Start Last Admin Trade Name [place]lali PRN Reason Stop Dose Admin Acetaminophen 650 mg 08/03/25 09:55 08/03/25 10:12 Acetaminophen 325 Mg Tablet PO 650 mg Q6H PRN Administration Mild Pain (1-3) or Fever Albuterol/Ipratropium 3 ml 08/01/25 08:00 08/03/25 07:46 Ipratropium 0.5 Mg/Albuterol Sulfate 2.5 Mg Ampul.Neb 3 Ml INHALATION 3 ml Q6HRT ROSMERY Administration Amiodarone HCl 200 mg 08/02/25 08:00 08/03/25 08:18 Amiodarone Hcl 200 Mg Tablet PO 200 mg DAILY@0800 ROSMERY Administration Guaifenesin/Dextromethorphan 10 ml 08/01/25 04:21 08/03/25 05:24 Guaifenesin/Dextromethorphan 10 Ml Udc PO 10 ml Q4H PRN Administration Cough Ceftriaxone Sodium 1 gm/ 50 mls @ 100 mls/hr 08/01/25 23:00 08/02/25 22:00 Sodium Chloride IVPB 100 mls/hr Q24H ROSMERY Administration Doxycycline Hyclate 100 mg/ 100 mls @ 100 mls/hr 08/01/25 14:00 08/03/25 02:25 Sodium Chloride IVPB 08/06/25 02:59 100 mls/hr Q12H ROSMERY Administration Levetiracetam 250 mg 08/01/25 18:15 08/03/25 08:18 Levetiracetam 250 Mg Tablet PO 250 mg DAILY PRN Administration trigeminal neuralgia Levothyroxine Sodium 150 mcg 08/01/25 06:30 08/03/25 05:24 Levothyroxine Sodium 150 Mcg Tablet PO 150 mcg DAILY@0630 ROSMERY Administration Metoprolol Tartrate 25 mg 08/01/25 09:00 08/03/25 08:18 Metoprolol Tartrate 25 Mg Tablet PO 25 mg Q12HR ROSMERY Administration Multivitamins/Minerals 1 tablet 08/01/25 09:00 08/03/25 08:19 Opti-Gen Tab PO 1 tablet DAILY ROSMERY Administration Oxcarbazepine 600 mg 08/01/25 21:00 08/03/25 08:18 Oxcarbazepine 300 Mg Tablet PO 600 mg Q12HR ROSMERY Administration Oxcarbazepine 150 mg 08/02/25 15:00 08/03/25 08:18 Oxcarbazepine 150 Mg Tablet PO 150 mg DAILY ROSMERY Administration Pantoprazole Sodium 40 mg 08/01/25 21:00 08/03/25 08:40 Pantoprazole Sodium Iv 40 Mg Vial IV PUSH 40 mg Q12HR ROSMERY Administration Polyethylene Glycol 17 gm 08/02/25 09:00 08/03/25 08:19 Polyethylene Glycol 3350 17 Gm Powd.Pack PO 17 gm QAM ROSMERY Administration Spironolactone 25 mg 08/01/25 09:00 08/03/25 08:18 Spironolactone 25 Mg Tablet PO 25 mg DAILY ROSMERY Administration Tamsulosin HCl 0.8 mg 08/02/25 21:00 08/02/25 20:09 Tamsulosin Hcl 0.4 Mg Capsule PO 0.8 mg HS ROSMERY Administration Radiology Results: ITS Impressions Modified Barium Swallow 08/01/25 09:35 IMPRESSION: Mild pharyngeal dysphagia with single episode of laryngeal penetration without aspiration due to reduced laryngeal elevation. Please correlate with speech pathologist findings and specific feeding recommendations. GI Bleed Scan Nuclear Medicine 08/01/25 16:18 IMPRESSION: 1. No scintigraphic evidence for active gastrointestinal bleeding. Labs Labs: Laboratory Results - last 24 hr 08/02/25 08/02/25 08/03/25 18:01 22:53 05:10 WBC 13.3 H RBC 2.84 L Hgb 8.3 L 8.1 L Hct 26.1 L 24.9 L MCV 87.7 MCH 28.5 MCHC 32.5 RDW 17.5 H Plt Count 272 MPV 9.5 Immature Gran % (Auto) 0.8 H Neut % (Auto) 82.5 H Lymph % (Auto) 5.9 L [place] % (Auto) 6.2 Eos % (Auto) 4.2 Baso % (Auto) 0.4 Lymph # (Auto) 0.78 L [place] # (Auto) 0.8 H Eos # (Auto) 0.6 H Baso # (Auto) 0.1 Abs Immat Gran (auto) 0.10 H Absolute Neuts (auto) 11.0 H Absolute Nucleated RBC 0.000 Nucleated RBC % 0.0 Sodium 132 L 132 L Potassium 3.7 3.9 Chloride 101 103 Carbon Dioxide 23 22 Anion Gap 8 7 BUN 30 H 29 H Creatinine 1.17 1.01 Estim Creat Clear Calc 41 48 Estimated GFR 59 > 60 Glucose 124 H 110 Calcium 8.1 L 7.9 L Phosphorus 2.7 Magnesium 2.2 2.2 Total Bilirubin 0.5 AST 87 H ALT 64 H Alkaline Phosphatase 658 H Total Protein 6.3 Albumin 2.9 L
[2025-08-03] MEDS: FUROSEMIDE INJ 40 MG/4 ML VIAL IV PUSH (16:10)
[2025-08-03] MEDS: BISACODYL 10 MG SUPPOSITORY RECTAL (16:10)
[2025-08-03 16:36] LABS: Hematocrit 27.6 % (42.0-52.0); Hemoglobin 8.8 g/dL (14.0-18.0); Immature Granulocyte Percent A 0.8 % (0-0.5); Lymphocytes Absolute Auto 0.76 K/mm3 (0.9-3.2); Mean Corpuscular HGB Conc 31.9 g/dl (32-36); Mean Corpuscular Hemoglobin 28.3 pg (26-34); Mean Corpuscular Volume 88.7 fl (80-100); Nucleated Red Blood Cells Absolute Auto 0.000 K/mm3 (0.0-0.012); Nucleated Red Blood Cells Perc 0.0 % (0.0-0.2); Platelet Count Result 284 k/mm3 (150-375); Red Blood Count 3.11 M/mm3 (4.6-6.20); White Blood Count 13.8 K/mm3 (4.5-10.0)
[2025-08-03 16:47] LABS: Ammonia < 9 umol/L (9-30)
[2025-08-03 16:51] LABS: Alanine Aminotransferase 71 U/L (6-50); Albumin Level 3.1 g/dL (3.5-5.1); Alkaline Phosphatase 666 U/L (38-126); Anion Gap 9 mmol/L (4-12); Aspartate Amino Transferase 82 U/L (17-59); Bilirubin,Total 0.6 mg/dL (0.2-1.3); Blood Urea Nitrogen 28 mg/dL (9-20); Calcium 8.2 mg/dL (8.4-10.2); Carbon Dioxide 22 mmol/L (22-30); Chloride 104 mmol/L (98-107); Estimated CRCL calculation 47 ml/min; Estimated Glomerular Filt Rate > 60; Glucose 116 mg/dL (65-110); Magnesium 2.2 mg/dL (1.6-2.3); Potassium 4.4 mmol/L (3.4-5.0); Sodium 135 mmol/L (137-145); Total Protein 6.5 g/dL (6.3-8.2)
[2025-08-03] MEDS: IPRATROPIUM BR 0.02% INH SOLN 0.5 MG/2.5 ML VIAL INHALATION (19:48)
[2025-08-03] MEDS: guaiFENesin 12 HR 600 MG TABCR PO (20:24)
[2025-08-03] MEDS: TAMSULOSIN HCL 0.4 MG CAPSULE 0.8 MG PO (20:24)
[2025-08-03] MEDS: cefTRIAXone 1 GM in SODIUM CHLORIDE 0.9% IV 50 ML 100 ML IVPB (22:10)
[2025-08-03] MEDS: MORPHINE SULFATE (*CRX) 2 MG/ML INJ IV PUSH (22:45)
--- NOTE | 2025-08-03 23:37 | PC.NURSE ---
2200: Pt on a regular diet; speech following. However, pt coughs with med administration. Meds crushed with apple sauce; tolerated well with no cough. Pt will benefit from dysphagia diet to prevent occurrence of aspiration pneumonia. Will relay this to day javier CHAM[facility]ERS
[2025-08-04] VITALS (19 sets, daily range): BP systolic 113–137; BP diastolic 56–64; PULSE 60–81; RESP 16–20; TEMP 36.4–36.9; O2SAT 94–100
[2025-08-04] MEDS: DOXYCYCLINE IV 100 MG in SODIUM CHLORIDE 0.9% IV 100 ML IVPB ×2 (01:32→15:00)
[2025-08-04] MEDS: IPRATROPIUM BR 0.02% INH SOLN 0.5 MG/2.5 ML VIAL INHALATION ×4 (02:10→21:17)
[2025-08-04] MEDS: METOPROLOL TARTRATE 25 MG TABLET PO ×3 (05:34→21:01)
[2025-08-04] MEDS: LEVOTHYROXINE SODIUM 150 MCG TABLET PO (05:34)
[2025-08-04] MEDS: ACETAMINOPHEN 325 MG TABLET 650 MG PO (05:35)
[2025-08-04 08:17] LABS: Hematocrit 27.7 % (42.0-52.0); Hemoglobin 9.0 g/dL (14.0-18.0); Immature Granulocyte Percent A 1.1 % (0-0.5); Lymphocytes Absolute Auto 1.15 K/mm3 (0.9-3.2); Mean Corpuscular HGB Conc 32.5 g/dl (32-36); Mean Corpuscular Hemoglobin 28.8 pg (26-34); Mean Corpuscular Volume 88.5 fl (80-100); Nucleated Red Blood Cells Absolute Auto 0.000 K/mm3 (0.0-0.012); Nucleated Red Blood Cells Perc 0.0 % (0.0-0.2); Platelet Count Result 275 k/mm3 (150-375); Red Blood Count 3.13 M/mm3 (4.6-6.20); White Blood Count 14.1 K/mm3 (4.5-10.0)
[2025-08-04 08:28] LABS: Alanine Aminotransferase 61 U/L (6-50); Albumin Level 3.1 g/dL (3.5-5.1); Alkaline Phosphatase 604 U/L (38-126); Anion Gap 7 mmol/L (4-12); Aspartate Amino Transferase 60 U/L (17-59); Bilirubin,Total 0.6 mg/dL (0.2-1.3); Blood Urea Nitrogen 29 mg/dL (9-20); Calcium 8.5 mg/dL (8.4-10.2); Carbon Dioxide 27 mmol/L (22-30); Chloride 102 mmol/L (98-107); Estimated CRCL calculation 45 ml/min; Estimated Glomerular Filt Rate > 60; Glucose 98 mg/dL (65-110); Magnesium 2.3 mg/dL (1.6-2.3); Potassium 4.3 mmol/L (3.4-5.0); Sodium 136 mmol/L (137-145); Total Protein 6.6 g/dL (6.3-8.2)
[2025-08-04] MEDS: OPTI-GEN TAB 1 TABLET PO (08:47)
[2025-08-04] MEDS: guaiFENesin 12 HR 600 MG TABCR PO ×2 (08:47→20:48)
[2025-08-04] MEDS: PANTOPRAZOLE SODIUM IV 40 MG VIAL IV PUSH ×2 (08:53→20:49)
[2025-08-04] MEDS: SPIRONOLACTONE 25 MG TABLET PO (08:53)
--- NOTE | 2025-08-04 15:32 | P.PNIM_ITS ---
Progress Note: A&P Assessment and Plan (1) Lobar pneumonia: Code(s): J18.1 - Lobar pneumonia, unspecified organism Status: Acute Assessment and Plan: Treated with IV fluids. -lactic was elevated at 2.5 and then came down to 1.6 with IV fluids. -routine nebulizer treatments. -continue with Rocephin and doxycycline IV antibiotics. -sputum culture pending Leukocytosis still persistent Check MRSA nares (2) Atrial fibrillation: Code(s): I48.91 - Unspecified atrial fibrillation Status: Acute Assessment and Plan: -the patient remains in AFib with controlled heart rate -continue with Eliquis -continue with amiodarone With due to drop in H&H will hold Eliquis H&H remained stable No other signs of bleeding will resume Eliquis Due to prolonged QTC will hold amiodarone (3) Hyponatremia: Code(s): E87.1 - Hypo-osmolality and hyponatremia Status: Acute Assessment and Plan: -continue with IV fluids -check urine and serum osmolality -Lasix on hold -it was reported that the patient has some type of liver cancer. However cannot find it in his records and I was unable [facility] that could verify this. This could also be another source of hyponatremia -continue to monitor renal function (4) Hypothyroidism: Code(s): E03.9 - Hypothyroidism, unspecified Status: Acute Assessment and Plan: -continue replacement (5) Acute upper GI bleed: Code(s): K92.2 - Gastrointestinal hemorrhage, unspecified Status: Acute Assessment and Plan: -check stool for occult blood -continue to monitor H&H -his initial H&H was 7.8 and 24.8. Repeat level was 8.7 and 27.0. Now he is 6.7 and 21.0 -he is hemodynamically stable. -it was reported that the patient had a coffee-ground emesis in the emergency room. -the patient is on Eliquis for AFib -hold Eliquis -GI has been consulted. Awaiting recommendation. Transfuse 1 unit of PRBC 08/01/2025 Needed another transfusion 08/02/2025 On Protonix IV b.i.d. No signs of active GI bleed Nuclear bleeding scan was negative H&H now stable (6) History of liver disease: Code(s): Z87.19 - Personal history of other diseases of the digestive system Status: Acute Assessment and Plan: -it was reported that the patient has possible liver cancer. Get records. May consider CT of the abdomen. -liver enzymes are elevated CT abdomen pelvis with multiple scattered hepatic masses consistent with metastatic disease. (7) BPH (benign prostatic hyperplasia): Code(s): N40.0 - Benign prostatic hyperplasia without lower urinary tract symptoms Status: Acute Assessment and Plan: -continue with Flomax (8) Seizure disorder: Code(s): G40.909 - Epilepsy, unspecified, not intractable, without status epilepticus Status: Acute Assessment and Plan: -continue with Keppra and Tegretol -check Keppra and Tegretol levels. -the dosages on his seizure medicine came from his home list. (9) Acute renal failure: Code(s): N17.9 - Acute kidney failure, unspecified Status: Acute Assessment and Plan: -could be related to the Lasix -the patient could also be dehydrated from his fever and or poor oral intake. Received a dose of Lasix 08/03/2025 Resume Lasix - Plan Dysphagia modified barium swallow performed mild dysesthesia with single episode of laryngeal penetration without aspiration. On dysphagia diet now. 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 CT abdomen reviewed Indeterminate right renal lesion 1.2 cm exophytic most likely proteinaceous/hemorrhagic cyst follow-up as an outpatient basis Subjective Date/time seen: 08/04/25 15:32 Interval history: Patient feels a little better today. Remains afebrile. Belly pain has improved as well. Review of Systems Review of Systems: All systems reviewed & are unremarkable except as noted in HPI and below Exam Narrative: General: Alert, awake, in no acute distress. HEENT: PERRL, no rhinorrhea, no post nasal drip, oropharynx clear. Neck: Trachea midline, no JVD, no lymphadenopathy. Cardiovascular: Regular rate and rhythm, no murmurs, rubs or gallops, no peripheral edema. Respiratory: Clear to auscultation bilaterally, no tachypnea, no wheezing, no rhonchi, no rubs, no respiratory distress. Abdomen: Soft, mildly tender right upper quadrant, nondistended, no rebound, no guarding, no peritoneal signs. Musculoskeletal: No joint swelling or deformity, normal muscle tone. Skin: No rashes or petechia, no signs of infection. Psychiatric: Alert and oriented, normal behavior and judgment for situation. Neurological: Alert and oriented to person, place, and time. Follows all commands. No focal deficits, speech is clear and fluent. Objective Data Vital Signs Vital Signs: Vital Signs - 24 hr 08/03/25 16:00 08/03/25 16:01 08/03/25 19:48 Temperature 97.2 F L Pulse Rate 104 H 76 80 Respiratory Rate 16 20 Blood Pressure 124/78 Pulse Oximetry 94 Oxygen Delivery Oxygen Flow Rate 08/03/25 19:50 08/03/25 19:56 08/03/25 20:00 Temperature Pulse Rate 77 92 Respiratory Rate 18 Blood Pressure Pulse Oximetry 96 Oxygen Delivery Room Air Oxygen Flow Rate 08/03/25 20:23 08/03/25 21:59 08/04/25 00:00 Temperature 98.0 F Pulse Rate 78 79 81 Respiratory Rate 18 20 Blood Pressure 147/55 H 140/63 Pulse Oximetry 95 Oxygen Delivery Oxygen Flow Rate 08/04/25 02:13 08/04/25 02:21 08/04/25 04:00 Temperature Pulse Rate 76 80 78 Respiratory Rate 18 18 Blood Pressure Pulse Oximetry Oxygen Delivery Oxygen Flow Rate 08/04/25 06:37 08/04/25 08:42 08/04/25 08:42 Temperature 98.4 F Pulse Rate 79 76 76 Respiratory Rate 18 20 20 Blood Pressure 121/56 L Pulse Oximetry 99 95 Oxygen Delivery Nasal Cannula Oxygen Flow Rate 1 08/04/25 08:50 08/04/25 14:00 08/04/25 15:17 Temperature 97.7 F Pulse Rate 77 75 79 Respiratory Rate 20 16 20 Blood Pressure 137/61 Pulse Oximetry 100 96 Oxygen Delivery Nasal Cannula Oxygen Flow Rate 1 08/04/25 15:17 08/04/25 15:26 Temperature Pulse Rate 79 80 Respiratory Rate 20 20 Blood Pressure Pulse Oximetry Oxygen Delivery Oxygen Flow Rate Intake/Output Intake/Output: Intake & Output 08/01/25 08/02/25 08/03/25 08/04/25 23:59 23:59 23:59 23:59 Intake Total 1020 1493 860 536 Output Total 300 1400 850 350 Balance 720 93 10 186 Meds/Results Medications: Active Medications Generic Name Dose Route Start Last Admin Trade Name Citlali PRN Reason Stop Dose Admin Acetaminophen 650 mg 08/03/25 15:51 08/04/25 05:35 Acetaminophen 325 Mg Tablet PO 650 mg Q4H PRN Administration Mild Pain (1-3) or Fever Amiodarone HCl 200 mg 08/02/25 08:00 08/03/25 08:18 Amiodarone Hcl 200 Mg Tablet PO 200 mg On Hold: 08/03/25 12:14 DAILY@0800 ROSMERY Administration Guaifenesin 600 mg 08/03/25 21:00 08/04/25 08:47 Guaifenesin 12 Hr 600 Mg Tabcr PO 600 mg Q12HR ROSMERY Administration Guaifenesin/Dextromethorphan 10 ml 08/01/25 04:21 08/04/25 05:35 Guaifenesin/Dextromethorphan 10 Ml Udc PO 10 ml Q4H PRN Administration Cough Ceftriaxone Sodium 1 gm/ 50 mls @ 100 mls/hr 08/01/25 23:00 08/03/25 22:10 Sodium Chloride IVPB 100 mls/hr Q24H ROSMERY Administration Doxycycline Hyclate 100 mg/ 100 mls @ 100 mls/hr 08/01/25 14:00 08/04/25 15:00 Sodium Chloride IVPB 08/06/25 02:59 100 mls/hr Q12H ROSMERY Administration Ipratropium [place] 0.5 mg 08/03/25 20:00 08/04/25 15:15 Ipratropium Br 0.02% Inh Soln 0.5 Mg/2.5 Ml Vial INHALATION 0.5 mg Q6HRT ROSMERY Administration Levalbuterol HCl 1.25 mg 08/03/25 20:00 08/04/25 15:15 Levalbuterol Neb 1.25 Mg/3 Ml INHALATION 1.25 mg Q6HRT ROSMERY Administration Levetiracetam 250 mg 08/01/25 18:15 08/03/25 08:18 Levetiracetam 250 Mg Tablet PO 250 mg DAILY PRN Administration trigeminal neuralgia Levothyroxine Sodium 150 mcg 08/01/25 06:30 08/04/25 05:34 Levothyroxine Sodium 150 Mcg Tablet PO 150 mcg DAILY@0630 ROSMERY Administration Metoprolol Tartrate 25 mg 08/03/25 14:00 08/04/25 15:00 Metoprolol Tartrate 25 Mg Tablet PO 25 mg Q8HR ROSMERY Administration Multivitamins/Minerals 1 tablet 08/01/25 09:00 08/04/25 08:47 Opti-Gen Tab PO 1 tablet DAILY ROSMERY Administration Oxcarbazepine 600 mg 08/01/25 21:00 08/04/25 08:48 Oxcarbazepine 300 Mg Tablet PO 600 mg Q12HR ROSMERY Administration Oxcarbazepine 150 mg 08/02/25 15:00 08/04/25 08:47 Oxcarbazepine 150 Mg Tablet PO 150 mg DAILY ROSMERY Administration Pantoprazole Sodium 40 mg 08/01/25 21:00 08/04/25 08:53 Pantoprazole Sodium Iv 40 Mg Vial IV PUSH 40 mg Q12HR ROSMERY Administration Polyethylene Glycol 17 gm 08/02/25 09:00 08/04/25 08:48 Polyethylene Glycol 3350 17 Gm Powd.Pack PO 17 gm QAM ROSMERY Administration Spironolactone 25 mg 08/01/25 09:00 08/04/25 08:53 Spironolactone 25 Mg Tablet PO 25 mg DAILY ROSMERY Administration Tamsulosin HCl 0.8 mg 08/02/25 21:00 08/03/25 20:24 Tamsulosin Hcl 0.4 Mg Capsule PO 0.8 mg HS ROSMERY Administration Radiology Results: ITS Impressions Modified Barium Swallow 08/01/25 09:35 IMPRESSION: Mild pharyngeal dysphagia with single episode of laryngeal penetration without aspiration due to reduced laryngeal elevation. Please correlate with speech pathologist findings and specific feeding recommendations. GI Bleed Scan Nuclear Medicine 08/01/25 16:18 IMPRESSION: 1. No scintigraphic evidence for active gastrointestinal bleeding. Chest X-Ray 08/03/25 14:57 Impression: CHF. Superimposed probable pneumonia. Chest/Abdomen/Pelvis CT 08/04/25 09:11 IMPRESSION: 1. Bilateral inferior predominant lung disease which could represent, pulmonary edema, atelectasis or some combination thereof with very small right and trace left pleural effusions. 2. Cardiomegaly with enlargement of the central pulmonary arteries consistent with pulmonary arterial hypertension. 3. 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 4. Multiple scattered hepatic masses consistent with metastatic disease. If this is a new finding would recommend ultrasound-guided biopsy. 5. Indeterminate 1.2 cm exophytic right renal lesion most likely proteinaceous/hemorrhagic cyst although differential includes solid neoplasm. Consider follow-up pre and postcontrast MRI or CT when clinically improved. 6. Tiny focus of pneumobilia within the normal gallbladder likely related to a common bile duct biliary stent. Labs Labs: Laboratory Results - last 24 hr 08/01/25 08/03/25 08/04/25 04:14 16:29 08:10 WBC 13.8 H 14.1 H RBC 3.11 L 3.13 L Hgb 8.8 L 9.0 L Hct 27.6 L 27.7 L MCV 88.7 88.5 MCH 28.3 28.8 MCHC 31.9 L 32.5 RDW 17.7 H 17.5 H Plt Count 284 275 MPV 9.0 9.0 Immature Gran % (Auto) 0.8 H 1.1 H Neut % (Auto) 83.4 H 78.8 H Lymph % (Auto) 5.5 L 8.2 L [place] % (Auto) 7.3 7.7 Eos % (Auto) 2.6 3.7 Baso % (Auto) 0.4 0.5 Lymph # (Auto) 0.76 L 1.15 [place] # (Auto) 1.0 H 1.1 H Eos # (Auto) 0.4 H 0.5 H Baso # (Auto) 0.1 0.1 Abs Immat Gran (auto) 0.11 H 0.16 H Absolute Neuts (auto) 11.5 H 11.1 H Absolute Nucleated RBC 0.000 0.000 Nucleated RBC % 0.0 0.0 Sodium 135 L Potassium 4.4 Chloride 104 Carbon Dioxide 22 Anion Gap 9 BUN 28 H Creatinine 1.03 Estim Creat Clear Calc 47 Estimated GFR > 60 Glucose 116 H Lactic Acid 2.0 Calcium 8.2 L Magnesium 2.2 Total Bilirubin 0.6 AST 82 H ALT 71 H Alkaline Phosphatase 666 H Ammonia < 9 L Total Protein 6.5 Albumin 3.1 L Levetiracetam <2.0 L 08/04/25 08:12 WBC RBC Hgb Hct MCV MCH MCHC RDW Plt Count MPV Immature Gran % (Auto) Neut % (Auto) Lymph % (Auto) [place] % (Auto) Eos % (Auto) Baso % (Auto) Lymph # (Auto) [place] # (Auto) Eos # (Auto) Baso # (Auto) Abs Immat Gran (auto) Absolute Neuts (auto) Absolute Nucleated RBC Nucleated RBC % Sodium 136 L Potassium 4.3 Chloride 102 Carbon Dioxide 27 Anion Gap 7 BUN 29 H Creatinine 1.08 Estim Creat Clear Calc 45 Estimated GFR > 60 Glucose 98 Lactic Acid Calcium 8.5 Magnesium 2.3 Total Bilirubin 0.6 AST 60 H ALT 61 H Alkaline Phosphatase 604 H Ammonia Total Protein 6.6 Albumin 3.1 L Levetiracetam
[2025-08-04 16:44] LABS: Procalcitonin 0.4 ng/mL
[2025-08-04] MEDS: FUROSEMIDE 40 MG TABLET PO (17:05)
[2025-08-04 18:54] LABS: MRSA (PCR) NOT DETECTED (NOT DETECTE)
[2025-08-04] MEDS: DOXYCYCLINE HYCLATE 100 MG TABLET PO (20:47)
[2025-08-04] MEDS: TAMSULOSIN HCL 0.4 MG CAPSULE 0.8 MG PO (20:49)
[2025-08-04] MEDS: cefTRIAXone 1 GM in SODIUM CHLORIDE 0.9% IV 50 ML 100 ML IVPB (22:32)
[2025-08-04 23:07] LABS: Osmolality, Urine 527 mOsmol/kg (.)
[2025-08-05] VITALS (21 sets, daily range): BP systolic 131–142; BP diastolic 60–86; PULSE 76–113; RESP 16–20; TEMP 36.1–36.6; O2SAT 94–100
[2025-08-05] MEDS: IPRATROPIUM BR 0.02% INH SOLN 0.5 MG/2.5 ML VIAL INHALATION ×4 (02:31→20:02)
[2025-08-05] MEDS: METOPROLOL TARTRATE INJ 5 MG/5 ML VIAL 2.5 MG IV PUSH (03:08)
[2025-08-05 05:59] LABS: Hematocrit 29.8 % (42.0-52.0); Hemoglobin 9.1 g/dL (14.0-18.0); Immature Granulocyte Percent A 0.9 % (0-0.5); Lymphocytes Absolute Auto 1.12 K/mm3 (0.9-3.2); Mean Corpuscular HGB Conc 30.5 g/dl (32-36); Mean Corpuscular Hemoglobin 28.8 pg (26-34); Mean Corpuscular Volume 94.3 fl (80-100); Nucleated Red Blood Cells Absolute Auto 0.000 K/mm3 (0.0-0.012); Nucleated Red Blood Cells Perc 0.0 % (0.0-0.2); Platelet Count Result 286 k/mm3 (150-375); Red Blood Count 3.16 M/mm3 (4.6-6.20); White Blood Count 15.4 K/mm3 (4.5-10.0)
[2025-08-05] MEDS: LEVOTHYROXINE SODIUM 150 MCG TABLET PO (06:10)
[2025-08-05] MEDS: METOPROLOL TARTRATE 25 MG TABLET PO ×3 (06:10→21:26)
[2025-08-05 06:25] LABS: Alanine Aminotransferase 53 U/L (6-50); Albumin Level 3.0 g/dL (3.5-5.1); Alkaline Phosphatase 602 U/L (38-126); Anion Gap 10 mmol/L (4-12); Aspartate Amino Transferase 58 U/L (17-59); Bilirubin,Total 0.6 mg/dL (0.2-1.3); Blood Urea Nitrogen 35 mg/dL (9-20); Calcium 8.6 mg/dL (8.4-10.2); Carbon Dioxide 22 mmol/L (22-30); Chloride 103 mmol/L (98-107); Estimated CRCL calculation 49 ml/min; Estimated Glomerular Filt Rate > 60; Glucose 108 mg/dL (65-110); Magnesium 2.4 mg/dL (1.6-2.3); Potassium 4.3 mmol/L (3.4-5.0); Sodium 135 mmol/L (137-145); Total Protein 6.5 g/dL (6.3-8.2)
[2025-08-05] MEDS: guaiFENesin 12 HR 600 MG TABCR PO ×2 (10:28→21:27)
[2025-08-05] MEDS: DOXYCYCLINE HYCLATE 100 MG TABLET PO ×2 (10:29→21:27)
[2025-08-05] MEDS: PANTOPRAZOLE SODIUM IV 40 MG VIAL IV PUSH ×2 (10:29→22:12)
[2025-08-05] MEDS: FUROSEMIDE 40 MG TABLET PO (10:29)
[2025-08-05] MEDS: OPTI-GEN TAB 1 TABLET PO (10:29)
[2025-08-05] MEDS: SPIRONOLACTONE 25 MG TABLET PO (10:29)
[2025-08-05 13:09] LABS: Osmolality, Serum 279 mOsmol/kg (280-301)
--- NOTE | 2025-08-05 13:58 | PM.IMPN ---
Progress Note: A&P Assessment and Plan (1) Lobar pneumonia: Code(s): J18.1 - Lobar pneumonia, unspecified organism Status: Acute Assessment and Plan: Treated with IV fluids. -lactic was elevated at 2.5 and then came down to 1.6 with IV fluids. -routine nebulizer treatments. -continue with Rocephin and doxycycline IV antibiotics. -sputum culture pending Leukocytosis still persistent MRSA nares negative Will add Flagyl for anaerobic coverage (2) Atrial fibrillation: Code(s): I48.91 - Unspecified atrial fibrillation Status: Acute Assessment and Plan: -the patient remains in AFib with controlled heart rate -continue with Eliquis -continue with amiodarone With due to drop in H&H will hold Eliquis H&H remained stable No other signs of bleeding will resume Eliquis Due to prolonged QTC will hold amiodarone (3) Hyponatremia: Code(s): E87.1 - Hypo-osmolality and hyponatremia Status: Acute Assessment and Plan: -continue with IV fluids -check urine and serum osmolality -Lasix on hold -it was reported that the patient has some type of liver cancer. However cannot find it in his records and I was unable to reach anybody at [facility] that could verify this. This could also be another source of hyponatremia -continue to monitor renal function (4) Hypothyroidism: Code(s): E03.9 - Hypothyroidism, unspecified Status: Acute Assessment and Plan: -continue replacement (5) Acute upper GI bleed: Code(s): K92.2 - Gastrointestinal hemorrhage, unspecified Status: Acute Assessment and Plan: -check stool for occult blood -continue to monitor H&H -his initial H&H was 7.8 and 24.8. Repeat level was 8.7 and 27.0. Now he is 6.7 and 21.0 -he is hemodynamically stable. -it was reported that the patient had a coffee-ground emesis in the emergency room. -the patient is on Eliquis for AFib -hold Eliquis -GI has been consulted. Awaiting recommendation. Transfuse 1 unit of PRBC 08/01/2025 Needed another transfusion 08/02/2025 On Protonix IV b.i.d. No signs of active GI bleed Nuclear bleeding scan was negative H&H now stable (6) History of liver disease: Code(s): Z87.19 - Personal history of other diseases of the digestive system Status: Acute Assessment and Plan: -it was reported that the patient has possible liver cancer. Get records. May consider CT of the abdomen. -liver enzymes are elevated CT abdomen pelvis with multiple scattered hepatic masses consistent with metastatic disease. (7) BPH (benign prostatic hyperplasia): Code(s): N40.0 - Benign prostatic hyperplasia without lower urinary tract symptoms Status: Acute Assessment and Plan: -continue with Flomax (8) Seizure disorder: Code(s): G40.909 - Epilepsy, unspecified, not intractable, without status epilepticus Status: Acute Assessment and Plan: -continue with Keppra and Tegretol -check Keppra and Tegretol levels. -the dosages on his seizure medicine came from his home list. (9) Acute renal failure: Code(s): N17.9 - Acute kidney failure, unspecified Status: Acute Assessment and Plan: -could be related to the Lasix -the patient could also be dehydrated from his fever and or poor oral intake. Received a dose of Lasix 08/03/2025 Resume Lasix - Plan Dysphagia modified barium swallow performed mild dysesthesia with single episode of laryngeal penetration without aspiration. On dysphagia diet now. 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 CT abdomen reviewed Indeterminate right renal lesion 1.2 cm exophytic most likely proteinaceous/hemorrhagic cyst follow-up as an outpatient basis DVT prophylaxis will resume apixaban as H&H has been stable now Subjective Date/time seen: 08/05/25 13:58 Interval history: No overnight events. No new complaints. Abdominal pain is better. Working with therapy today. Generalized weakness present. Review of Systems Review of Systems: All systems reviewed & are unremarkable except as noted in HPI and below Exam Narrative: General: Alert, awake, in no acute distress. HEENT: PERRL, no rhinorrhea, no post nasal drip, oropharynx clear. Neck: Trachea midline, no JVD, no lymphadenopathy. Cardiovascular: Regular rate and rhythm, no murmurs, rubs or gallops, no peripheral edema. Respiratory: Clear to auscultation bilaterally, no tachypnea, no wheezing, no rhonchi, no rubs, no respiratory distress. Abdomen: Soft, nontender, nondistended, no rebound, no guarding, no peritoneal signs. Musculoskeletal: No joint swelling or deformity, normal muscle tone. Skin: No rashes or petechia, no signs of infection. Psychiatric: Alert and oriented, normal behavior and judgment for situation. Neurological: Alert and oriented to person, place, and time. Follows all commands. No focal deficits, speech is clear and fluent. Objective Data Vital Signs Vital Signs: Vital Signs - 24 hr 08/04/25 14:00 08/04/25 15:17 08/04/25 15:17 Temperature 97.7 F Pulse Rate 75 79 79 Respiratory Rate 16 20 20 Blood Pressure 137/61 Pulse Oximetry 100 96 Oxygen Delivery Nasal Cannula Oxygen Flow Rate 1 08/04/25 15:26 08/04/25 16:00 08/04/25 20:00 Temperature Pulse Rate 80 76 77 Respiratory Rate 20 20 Blood Pressure Pulse Oximetry 97 Oxygen Delivery Nasal Cannula Oxygen Flow Rate 1 08/04/25 20:00 08/04/25 21:01 08/04/25 21:15 Temperature Pulse Rate 77 77 66 Respiratory Rate 16 Blood Pressure Pulse Oximetry 98 Oxygen Delivery Nasal Cannula Oxygen Flow Rate 1 08/04/25 21:17 08/04/25 21:27 08/04/25 21:41 Temperature 97.6 F Pulse Rate 66 60 77 Respiratory Rate 16 16 16 Blood Pressure 113/64 Pulse Oximetry 97 Oxygen Delivery Oxygen Flow Rate 08/05/25 00:00 08/05/25 02:32 08/05/25 02:41 Temperature Pulse Rate 105 H 95 85 Respiratory Rate 20 20 Blood Pressure Pulse Oximetry Oxygen Delivery Oxygen Flow Rate 08/05/25 03:08 08/05/25 04:35 08/05/25 06:04 Temperature Pulse Rate 113 H 98 83 Respiratory Rate 18 Blood Pressure 134/62 Pulse Oximetry 95 Oxygen Delivery Oxygen Flow Rate 08/05/25 06:10 08/05/25 06:14 08/05/25 07:55 Temperature 97.8 F Pulse Rate 83 79 80 Respiratory Rate 17 19 Blood Pressure 131/86 Pulse Oximetry 98 Oxygen Delivery Oxygen Flow Rate 08/05/25 08:13 08/05/25 08:13 08/05/25 10:29 Temperature Pulse Rate 78 Respiratory Rate 18 Blood Pressure Pulse Oximetry 97 97 Oxygen Delivery Nasal Cannula Nasal Cannula Oxygen Flow Rate 1 1 08/05/25 10:29 08/05/25 12:00 Temperature Pulse Rate 79 81 Respiratory Rate Blood Pressure Pulse Oximetry Oxygen Delivery Oxygen Flow Rate Intake/Output Intake/Output: Intake & Output 08/02/25 08/03/25 08/04/25 08/05/25 23:59 23:59 23:59 23:59 Intake Total 1493 910 586 838 Output Total 1400 850 500 250 Balance 93 60 86 588 Meds/Results Medications: Active Medications Generic Name Dose Route Start Last Admin Trade Name Freq PRN Reason Stop Dose Admin Acetaminophen 650 mg 08/03/25 15:51 08/04/25 05:35 Acetaminophen 325 Mg Tablet PO 650 mg Q4H PRN Administration Mild Pain (1-3) or Fever Amiodarone HCl 200 mg 08/02/25 08:00 08/03/25 08:18 Amiodarone Hcl 200 Mg Tablet PO 200 mg On Hold: 08/03/25 12:14 DAILY@0800 ROSMERY Administration Doxycycline Hyclate 100 mg 08/04/25 21:00 08/05/25 10:29 Doxycycline Hyclate 100 Mg Tablet PO 08/05/25 21:01 100 mg Q12HR ROSMERY Administration Furosemide 40 mg 08/04/25 15:40 08/05/25 10:29 Furosemide 40 Mg Tablet PO 40 mg DAILY ROSMERY Administration Guaifenesin 600 mg 08/03/25 21:00 08/05/25 10:28 Guaifenesin 12 Hr 600 Mg Tabcr PO 600 mg Q12HR ROSMERY Administration Guaifenesin/Dextromethorphan 10 ml 08/01/25 04:21 08/04/25 05:35 Guaifenesin/Dextromethorphan 10 Ml Udc PO 10 ml Q4H PRN Administration Cough Ceftriaxone Sodium 1 gm/ 50 mls @ 100 mls/hr 08/01/25 23:00 08/04/25 23:02 Sodium Chloride IVPB Infused Q24H ROSMERY Infusion Ipratropium [place] 0.5 mg 08/03/25 20:00 08/05/25 07:44 Ipratropium Br 0.02% Inh Soln 0.5 Mg/2.5 Ml Vial INHALATION 0.5 mg Q6HRT ROSMERY Administration Levalbuterol HCl 1.25 mg 08/03/25 20:00 08/05/25 07:44 Levalbuterol Neb 1.25 Mg/3 Ml INHALATION 1.25 mg Q6HRT ROSMERY Administration Levetiracetam 250 mg 08/01/25 18:15 08/03/25 08:18 Levetiracetam 250 Mg Tablet PO 250 mg DAILY PRN Administration trigeminal neuralgia Levothyroxine Sodium 150 mcg 08/01/25 06:30 08/05/25 06:10 Levothyroxine Sodium 150 Mcg Tablet PO 150 mcg DAILY@0630 ROSMERY Administration Metoprolol Tartrate 25 mg 08/03/25 14:00 08/05/25 06:10 Metoprolol Tartrate 25 Mg Tablet PO 25 mg Q8HR ROSMERY Administration Metronidazole 500 mg 08/05/25 13:00 Metronidazole 500 Mg Tablet PO 08/12/25 06:01 Q8HR ROSMERY Multivitamins/Minerals 1 tablet 08/01/25 09:00 08/05/25 10:29 Opti-Gen Tab PO 1 tablet DAILY ROSMERY Administration Oxcarbazepine 600 mg 08/01/25 21:00 08/05/25 10:29 Oxcarbazepine 300 Mg Tablet PO 600 mg Q12HR ROSMERY Administration Oxcarbazepine 150 mg 08/02/25 15:00 08/05/25 10:28 Oxcarbazepine 150 Mg Tablet PO 150 mg DAILY ROSMERY Administration Pantoprazole Sodium 40 mg 08/01/25 21:00 08/05/25 10:29 Pantoprazole Sodium Iv 40 Mg Vial IV PUSH 40 mg Q12HR ROSMERY Administration Polyethylene Glycol 17 gm 08/02/25 09:00 08/05/25 10:29 Polyethylene Glycol 3350 17 Gm Powd.Pack PO 17 gm QAM ROSMERY Administration Spironolactone 25 mg 08/01/25 09:00 08/05/25 10:29 Spironolactone 25 Mg Tablet PO 25 mg DAILY ROSMERY Administration Tamsulosin HCl 0.8 mg 08/02/25 21:00 08/04/25 20:49 Tamsulosin Hcl 0.4 Mg Capsule PO 0.8 mg HS ROSMERY Administration Radiology Results: ITS Impressions Modified Barium Swallow 08/01/25 09:35 IMPRESSION: Mild pharyngeal dysphagia with single episode of laryngeal penetration without aspiration due to reduced laryngeal elevation. Please correlate with speech pathologist findings and specific feeding recommendations. GI Bleed Scan Nuclear Medicine 08/01/25 16:18 IMPRESSION: 1. No scintigraphic evidence for active gastrointestinal bleeding. Chest X-Ray 08/03/25 14:57 Impression: CHF. Superimposed probable pneumonia. Chest/Abdomen/Pelvis CT 08/04/25 09:11 IMPRESSION: 1. Bilateral inferior predominant lung disease which could represent, pulmonary edema, atelectasis or some combination thereof with very small right and trace left pleural effusions. 2. Cardiomegaly with enlargement of the central pulmonary arteries consistent with pulmonary arterial hypertension. 3. 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 4. Multiple scattered hepatic masses consistent with metastatic disease. If this is a new finding would recommend ultrasound-guided biopsy. 5. Indeterminate 1.2 cm exophytic right renal lesion most likely proteinaceous/hemorrhagic cyst although differential includes solid neoplasm. Consider follow-up pre and postcontrast MRI or CT when clinically improved. 6. Tiny focus of pneumobilia within the normal gallbladder likely related to a common bile duct biliary stent. Labs Labs: Laboratory Results - last 24 hr 08/01/25 08/01/25 08/01/25 04:14 05:13 20:18 WBC RBC Hgb Hct MCV MCH MCHC RDW Plt Count MPV Immature Gran % (Auto) Neut % (Auto) Lymph % (Auto) [place] % (Auto) Eos % (Auto) Baso % (Auto) Lymph # (Auto) [place] # (Auto) Eos # (Auto) Baso # (Auto) Abs Immat Gran (auto) Absolute Neuts (auto) Absolute Nucleated RBC Nucleated RBC % Sodium Potassium Chloride Carbon Dioxide Anion Gap BUN Creatinine Estim Creat Clear Calc Estimated GFR Glucose Serum Osmolality 279 L Calcium Magnesium Total Bilirubin AST ALT Alkaline Phosphatase Total Protein Albumin Procalcitonin Urine Osmolality 527 Nasal MRSA (PCR) Levetiracetam <2.0 L 08/04/25 08/04/25 08/05/25 08:10 17:34 05:40 WBC 15.4 H RBC 3.16 L Hgb 9.1 L Hct 29.8 L MCV 94.3 D MCH 28.8 MCHC 30.5 L RDW 17.7 H Plt Count 286 MPV 9.6 Immature Gran % (Auto) 0.9 H Neut % (Auto) 81.4 H Lymph % (Auto) 7.3 L [place] % (Auto) 7.0 Eos % (Auto) 2.9 Baso % (Auto) 0.5 Lymph # (Auto) 1.12 [place] # (Auto) 1.1 H Eos # (Auto) 0.5 H Baso # (Auto) 0.1 Abs Immat Gran (auto) 0.14 H Absolute Neuts (auto) 12.5 H Absolute Nucleated RBC 0.000 Nucleated RBC % 0.0 Sodium 135 L Potassium 4.3 Chloride 103 Carbon Dioxide 22 Anion Gap 10 BUN 35 H Creatinine 0.99 Estim Creat Clear Calc 49 Estimated GFR > 60 Glucose 108 Serum Osmolality Calcium 8.6 Magnesium 2.4 H Total Bilirubin 0.6 AST 58 ALT 53 H Alkaline Phosphatase 602 H Total Protein 6.5 Albumin 3.0 L Procalcitonin 0.4 Urine Osmolality Nasal MRSA (PCR) Not detected Levetiracetam
[2025-08-05] MEDS: ACETAMINOPHEN 325 MG TABLET 650 MG PO (14:45)
[2025-08-05] MEDS: TAMSULOSIN HCL 0.4 MG CAPSULE 0.8 MG PO (21:27)
[2025-08-05] MEDS: APIXABAN 5 MG TABLET PO (21:27)
[2025-08-05] MEDS: cefTRIAXone 1 GM in SODIUM CHLORIDE 0.9% IV 50 ML 100 ML IVPB (22:11)
[2025-08-06] VITALS (24 sets, daily range): BP systolic 125–136; BP diastolic 48–57; PULSE 71–113; RESP 16–20; TEMP 36.3–36.7; O2SAT 93–99
[2025-08-06] MEDS: IPRATROPIUM BR 0.02% INH SOLN 0.5 MG/2.5 ML VIAL INHALATION ×4 (02:32→20:05)
[2025-08-06] MEDS: METOPROLOL TARTRATE 25 MG TABLET PO ×3 (05:38→21:10)
[2025-08-06] MEDS: LEVOTHYROXINE SODIUM 150 MCG TABLET PO (05:38)
[2025-08-06 06:23] LABS: Hematocrit 29.2 % (42.0-52.0); Hemoglobin 9.0 g/dL (14.0-18.0); Immature Granulocyte Percent A 0.8 % (0-0.5); Lymphocytes Absolute Auto 1.34 K/mm3 (0.9-3.2); Mean Corpuscular HGB Conc 30.8 g/dl (32-36); Mean Corpuscular Hemoglobin 27.9 pg (26-34); Mean Corpuscular Volume 90.4 fl (80-100); Nucleated Red Blood Cells Absolute Auto 0.000 K/mm3 (0.0-0.012); Nucleated Red Blood Cells Perc 0.0 % (0.0-0.2); Platelet Count Result 277 k/mm3 (150-375); Red Blood Count 3.23 M/mm3 (4.6-6.20); White Blood Count 14.1 K/mm3 (4.5-10.0)
[2025-08-06 06:45] LABS: Alanine Aminotransferase 48 U/L (6-50); Albumin Level 3.1 g/dL (3.5-5.1); Alkaline Phosphatase 575 U/L (38-126); Anion Gap 10 mmol/L (4-12); Aspartate Amino Transferase 53 U/L (17-59); Bilirubin,Total 0.6 mg/dL (0.2-1.3); Blood Urea Nitrogen 37 mg/dL (9-20); Calcium 8.6 mg/dL (8.4-10.2); Carbon Dioxide 21 mmol/L (22-30); Chloride 103 mmol/L (98-107); Estimated CRCL calculation 45 ml/min; Estimated Glomerular Filt Rate > 60; Glucose 112 mg/dL (65-110); Magnesium 2.2 mg/dL (1.6-2.3); Potassium 3.9 mmol/L (3.4-5.0); Sodium 134 mmol/L (137-145); Total Protein 6.5 g/dL (6.3-8.2)
[2025-08-06] MEDS: SPIRONOLACTONE 25 MG TABLET PO (10:18)
[2025-08-06] MEDS: FUROSEMIDE 40 MG TABLET PO (10:18)
[2025-08-06] MEDS: OPTI-GEN TAB 1 TABLET PO (10:18)
[2025-08-06] MEDS: APIXABAN 5 MG TABLET PO ×2 (10:18→21:10)
[2025-08-06] MEDS: guaiFENesin 12 HR 600 MG TABCR PO ×2 (10:18→21:10)
[2025-08-06] MEDS: PANTOPRAZOLE SODIUM IV 40 MG VIAL IV PUSH ×2 (10:23→21:11)
[2025-08-06] MEDS: AMIODARONE HCL 200 MG TABLET PO (12:46)
--- NOTE | 2025-08-06 17:43 | P.PNIM_ITS ---
Progress Note: A&P Assessment and Plan (1) Lobar pneumonia: Code(s): J18.1 - Lobar pneumonia, unspecified organism Status: Acute Assessment and Plan: Treated with IV fluids. -lactic was elevated at 2.5 and then came down to 1.6 with IV fluids. -routine nebulizer treatments. -continue with Rocephin and doxycycline IV antibiotics. -sputum culture pending Leukocytosis still persistent MRSA nares negative Will add Flagyl for anaerobic coverage (2) Atrial fibrillation: Code(s): I48.91 - Unspecified atrial fibrillation Status: Acute Assessment and Plan: -the patient remains in AFib with controlled heart rate -continue with Eliquis -continue with amiodarone With due to drop in H&H will hold Eliquis H&H remained stable No other signs of bleeding will resume Eliquis Due to prolonged QTC will hold amiodarone (3) Hyponatremia: Code(s): E87.1 - Hypo-osmolality and hyponatremia Status: Acute Assessment and Plan: -continue with IV fluids -check urine and serum osmolality -Lasix on hold -it was reported that the patient has some type of liver cancer. However cannot find it in his records and I was unable to reach anybody at the [place] [facility] that could verify this. This could also be another source of hyponatremia -continue to monitor renal function (4) Hypothyroidism: Code(s): E03.9 - Hypothyroidism, unspecified Status: Acute Assessment and Plan: -continue replacement (5) Acute upper GI bleed: Code(s): K92.2 - Gastrointestinal hemorrhage, unspecified Status: Acute Assessment and Plan: -check stool for occult blood -continue to monitor H&H -his initial H&H was 7.8 and 24.8. Repeat level was 8.7 and 27.0. Now he is 6.7 and 21.0 -he is hemodynamically stable. -it was reported that the patient had a coffee-ground emesis in the emergency room. -the patient is on Eliquis for AFib -hold Eliquis -GI has been consulted. Awaiting recommendation. Transfuse 1 unit of PRBC 08/01/2025 Needed another transfusion 08/02/2025 On Protonix IV b.i.d. No signs of active GI bleed Nuclear bleeding scan was negative H&H now stable (6) History of liver disease: Code(s): Z87.19 - Personal history of other diseases of the digestive system Status: Acute Assessment and Plan: -it was reported that the patient has possible liver cancer. Get records. May consider CT of the abdomen. -liver enzymes are elevated CT abdomen pelvis with multiple scattered hepatic masses consistent with metastatic disease. (7) BPH (benign prostatic hyperplasia): Code(s): N40.0 - Benign prostatic hyperplasia without lower urinary tract symptoms Status: Acute Assessment and Plan: -continue with Flomax (8) Seizure disorder: Code(s): G40.909 - Epilepsy, unspecified, not intractable, without status epilepticus Status: Acute Assessment and Plan: -continue with Keppra and Tegretol -check Keppra and Tegretol levels. -the dosages on his seizure medicine came from his home list. (9) Acute renal failure: Code(s): N17.9 - Acute kidney failure, unspecified Status: Acute Assessment and Plan: -could be related to the Lasix -the patient could also be dehydrated from his fever and or poor oral intake. Received a dose of Lasix 08/03/2025 Resume Lasix - Plan Dysphagia modified barium swallow performed mild dysesthesia with single episode of laryngeal penetration without aspiration. On dysphagia diet now. 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 CT abdomen reviewed Indeterminate right renal lesion 1.2 cm exophytic most likely proteinaceous/hemorrhagic cyst follow-up as an outpatient basis No overnight events. No new complaints. Abdominal pain is better. Working with therapy today. Generalized weakness present. patient stats feels better compared to when he arrived. DVT prophylaxis will resume apixaban as H&H has been stable now Subjective Date/time seen: 08/06/25 17:43 Interval history: No overnight events. No new complaints. Abdominal pain is better. Working with therapy today. Generalized weakness present. patient stats feels better compared to when he arrived. Review of Systems Review of Systems: All systems reviewed & are unremarkable except as noted in HPI and below Exam Narrative: Patient is comfortable, NAD HEENT: eyes are clear and none icteric LUNGS:CTA HEART: RR S1S2 ABD: BS+, Soft and nontender Lower extremities: no edema SKIN: nonjaundiced Neuro: grossly intact. Objective Data Vital Signs Vital Signs: Vital Signs - 24 hr 08/05/25 20:00 08/05/25 20:00 08/05/25 20:02 Temperature Pulse Rate 76 76 Respiratory Rate 20 Blood Pressure Pulse Oximetry 94 Oxygen Delivery Nasal Cannula Oxygen Flow Rate 1 08/05/25 20:04 08/05/25 22:33 08/06/25 00:00 Temperature 36.6 C Pulse Rate 76 77 76 Respiratory Rate 20 16 Blood Pressure 140/61 Pulse Oximetry 96 100 Oxygen Delivery Nasal Cannula Oxygen Flow Rate 1 08/06/25 02:32 08/06/25 02:41 08/06/25 04:00 Temperature Pulse Rate 90 75 94 Respiratory Rate 20 20 Blood Pressure Pulse Oximetry Oxygen Delivery Oxygen Flow Rate 08/06/25 05:38 08/06/25 05:51 08/06/25 08:27 Temperature 36.4 C Pulse Rate 91 80 71 Respiratory Rate 16 20 Blood Pressure 125/55 L Pulse Oximetry 95 Oxygen Delivery Oxygen Flow Rate 08/06/25 08:28 08/06/25 08:37 08/06/25 10:27 Temperature Pulse Rate 71 77 86 Respiratory Rate 20 Blood Pressure Pulse Oximetry 93 95 Oxygen Delivery Room Air Nasal Cannula Oxygen Flow Rate 1 08/06/25 12:46 08/06/25 13:24 08/06/25 13:34 Temperature Pulse Rate 109 H 78 77 Respiratory Rate 19 19 Blood Pressure Pulse Oximetry Oxygen Delivery Oxygen Flow Rate 08/06/25 14:00 08/06/25 14:40 Temperature 36.3 C L Pulse Rate 78 101 H Respiratory Rate 20 Blood Pressure 136/57 L Pulse Oximetry 99 Oxygen Delivery Oxygen Flow Rate Intake/Output Intake/Output: Intake & Output 08/03/25 08/04/25 08/05/25 08/06/25 23:59 23:59 23:59 23:59 Intake Total 588 122 8760 980 Output Total 850 672 460 2987 Balance 60 86 488 -320 Meds/Results Medications: Active Medications Generic Name Dose Route Start Last Admin Trade Name Freq PRN Reason Stop Dose Admin Acetaminophen 650 mg 08/03/25 15:51 08/05/25 14:45 Acetaminophen 325 Mg Tablet PO 650 mg Q4H PRN Administration Mild Pain (1-3) or Fever Amiodarone HCl 200 mg 08/06/25 12:25 08/06/25 12:46 Amiodarone Hcl 200 Mg Tablet PO 200 mg DAILY@0800 ROSMERY Administration Apixaban 5 mg 08/05/25 21:00 08/06/25 10:18 Apixaban 5 Mg Tablet PO 5 mg Q12HR ROSMERY Administration Furosemide 40 mg 08/04/25 15:40 08/06/25 10:18 Furosemide 40 Mg Tablet PO 40 mg DAILY ROSMERY Administration Guaifenesin 600 mg 08/03/25 21:00 08/06/25 10:18 Guaifenesin 12 Hr 600 Mg Tabcr PO 600 mg Q12HR ROSMERY Administration Guaifenesin/Dextromethorphan 10 ml 08/01/25 04:21 08/04/25 05:35 Guaifenesin/Dextromethorphan 10 Ml Udc PO 10 ml Q4H PRN Administration Cough Ceftriaxone Sodium 1 gm/ 50 mls @ 100 mls/hr 08/01/25 23:00 08/05/25 22:11 Sodium Chloride IVPB 100 mls/hr Q24H ROSMERY Administration Ipratropium [place] 0.5 mg 08/03/25 20:00 08/06/25 13:22 Ipratropium Br 0.02% Inh Soln 0.5 Mg/2.5 Ml Vial INHALATION 0.5 mg Q6HRT ROSMERY Administration Levalbuterol HCl 1.25 mg 08/03/25 20:00 08/06/25 13:22 Levalbuterol Neb 1.25 Mg/3 Ml INHALATION 1.25 mg Q6HRT ROSMERY Administration Levetiracetam 250 mg 08/01/25 18:15 08/03/25 08:18 Levetiracetam 250 Mg Tablet PO 250 mg DAILY PRN Administration trigeminal neuralgia Levothyroxine Sodium 150 mcg 08/01/25 06:30 08/06/25 05:38 Levothyroxine Sodium 150 Mcg Tablet PO 150 mcg DAILY@0630 ROSMERY Administration Metoprolol Tartrate 25 mg 08/03/25 14:00 08/06/25 14:40 Metoprolol Tartrate 25 Mg Tablet PO 25 mg Q8HR ROSMERY Administration Metronidazole 500 mg 08/05/25 13:00 08/06/25 14:40 Metronidazole 500 Mg Tablet PO 08/12/25 06:01 500 mg Q8HR ROSMERY Administration Multivitamins/Minerals 1 tablet 08/01/25 09:00 08/06/25 10:18 Opti-Gen Tab PO 1 tablet DAILY ROSMERY Administration Oxcarbazepine 600 mg 08/01/25 21:00 08/06/25 10:17 Oxcarbazepine 300 Mg Tablet PO 600 mg Q12HR ROSMERY Administration Oxcarbazepine 150 mg 08/02/25 15:00 08/06/25 10:18 Oxcarbazepine 150 Mg Tablet PO 150 mg DAILY ROSMERY Administration Pantoprazole Sodium 40 mg 08/01/25 21:00 08/06/25 10:23 Pantoprazole Sodium Iv 40 Mg Vial IV PUSH 40 mg Q12HR ROSMERY Administration Polyethylene Glycol 17 gm 08/02/25 09:00 08/06/25 10:17 Polyethylene Glycol 3350 17 Gm Powd.Pack PO 17 gm QAM ROSMERY Administration Spironolactone 25 mg 08/01/25 09:00 08/06/25 10:18 Spironolactone 25 Mg Tablet PO 25 mg DAILY ROSMERY Administration Tamsulosin HCl 0.8 mg 08/02/25 21:00 08/05/25 21:27 Tamsulosin Hcl 0.4 Mg Capsule PO 0.8 mg HS ROSMERY Administration Radiology Results: ITS Impressions Modified Barium Swallow 08/01/25 09:35 IMPRESSION: Mild pharyngeal dysphagia with single episode of laryngeal penetration without aspiration due to reduced laryngeal elevation. Please correlate with speech pathologist findings and specific feeding recommendations. GI Bleed Scan Nuclear Medicine 08/01/25 16:18 IMPRESSION: 1. No scintigraphic evidence for active gastrointestinal bleeding. Chest X-Ray 08/03/25 14:57 Impression: CHF. Superimposed probable pneumonia. Chest/Abdomen/Pelvis CT 08/04/25 09:11 IMPRESSION: 1. Bilateral inferior predominant lung disease which could represent, pulmonary edema, atelectasis or some combination thereof with very small right and trace left pleural effusions. 2. Cardiomegaly with enlargement of the central pulmonary arteries consistent with pulmonary arterial hypertension. 3. 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 4. Multiple scattered hepatic masses consistent with metastatic disease. If this is a new finding would recommend ultrasound-guided biopsy. 5. Indeterminate 1.2 cm exophytic right renal lesion most likely proteinaceous /hemorrhagic cyst although differential includes solid neoplasm. Consider follow-up pre and postcontrast MRI or CT when clinically improved. 6. Tiny focus of pneumobilia within the normal gallbladder likely related to a common bile duct biliary stent. Labs Labs: Laboratory Results - last 24 hr 08/06/25 05:59 WBC 14.1 H RBC 3.23 L Hgb 9.0 L Hct 29.2 L MCV 90.4 MCH 27.9 MCHC 30.8 L RDW 17.5 H Plt Count 277 MPV 9.2 Immature Gran % (Auto) 0.8 H Neut % (Auto) 78.8 H Lymph % (Auto) 9.5 L [place] % (Auto) 6.5 Eos % (Auto) 3.7 Baso % (Auto) 0.7 Lymph # (Auto) 1.34 [place] # (Auto) 0.9 H Eos # (Auto) 0.5 H Baso # (Auto) 0.1 Abs Immat Gran (auto) 0.11 H Absolute Neuts (auto) 11.1 H Absolute Nucleated RBC 0.000 Nucleated RBC % 0.0 Sodium 134 L Potassium 3.9 Chloride 103 Carbon Dioxide 21 L Anion Gap 10 BUN 37 H Creatinine 1.08 Estim Creat Clear Calc 45 Estimated GFR > 60 Glucose 112 H Calcium 8.6 Magnesium 2.2 Total Bilirubin 0.6 AST 53 ALT 48 Alkaline Phosphatase 575 H Total Protein 6.5 Albumin 3.1 L Quality VTE Prophylaxis VTE prophylaxis: mechanical ordered
[2025-08-06] MEDS: ACETAMINOPHEN 325 MG TABLET 650 MG PO (18:09)
[2025-08-06] MEDS: TAMSULOSIN HCL 0.4 MG CAPSULE 0.8 MG PO (21:10)
[2025-08-06] MEDS: cefTRIAXone 1 GM in SODIUM CHLORIDE 0.9% IV 50 ML 100 ML IVPB (21:44)
[2025-08-07] VITALS (20 sets, daily range): BP systolic 135–139; BP diastolic 54–65; PULSE 72–90; RESP 16–18; TEMP 36.4–37.1; O2SAT 92–97
[2025-08-07] MEDS: IPRATROPIUM BR 0.02% INH SOLN 0.5 MG/2.5 ML VIAL INHALATION ×4 (01:36→21:06)
[2025-08-07] MEDS: METOPROLOL TARTRATE 25 MG TABLET PO ×3 (05:49→21:53)
[2025-08-07] MEDS: LEVOTHYROXINE SODIUM 150 MCG TABLET PO (05:49)
[2025-08-07] MEDS: FUROSEMIDE 40 MG TABLET PO (07:43)
[2025-08-07] MEDS: guaiFENesin 12 HR 600 MG TABCR PO ×2 (07:43→20:07)
[2025-08-07] MEDS: SPIRONOLACTONE 25 MG TABLET PO (07:43)
[2025-08-07] MEDS: OPTI-GEN TAB 1 TABLET PO (07:43)
[2025-08-07] MEDS: AMIODARONE HCL 200 MG TABLET PO (07:44)
[2025-08-07] MEDS: APIXABAN 5 MG TABLET PO ×2 (07:44→20:09)
[2025-08-07] MEDS: PANTOPRAZOLE SODIUM IV 40 MG VIAL IV PUSH ×2 (07:46→20:07)
[2025-08-07] MEDS: HYDROcodone/acetaminophen (*CRX) 5-325 MG TABLET 1 TAB PO (09:52)
--- NOTE | 2025-08-07 11:02 | PCSTNOTE ---
Please refer to the Modified Barium Swallow Evaluation in the EMR. The patient is an 89 year old male admitted with pneumonia a BSE was ordered to r/o aspiration risk due to noted coughing with drinks by nursing. He has continued to demonstrate difficulty with PO intake since initial MBS and a repeat MBS is being completed on this date. The patient was seen in a lateral view and presented the following consistencies: 5cc/tsp thin liquid barium, cup drinks thin liquid barium, cup drinks mildly thick liquid barium, pudding mixed with barium paste, and cracker coated with barium paste. Oral Stage: Timely oral preparation and transit all consistencies. Pharyngeal stage: When presented cup trials of thin liquid the patient was noted to have moderate residual within the valleculae following the swallow secondary to reduced lingual pressure. The patient was able to clear a portion of the vallecular residual with a repeat dry swallow or by alternating bites and drinks. However, he required extra time to perform this task due to general weakness. The patient was also noted to have trace laryngeal penetration after the swallow from residual remaining within the valleculae secondary to decreased laryngeal elevation and reduced tongue base retraction. The material entered the airway but remained above the vocal folds and was ejected. Finally, when presented trials pudding mixed with barium paste, and cracker coated with barium paste the patient was viewed to have moderate vallecular residual secondary to reduced tongue base and reduced epiglottic inversion and mild residual within the pyriform sinus secondary to cricopharyngeal dysfunction. The patient was able to clear a portion of the residual when performing a repeat dry swallow however, it required extra time and effort due to general fatigue. Recommend 1. Regular Diet / Level 7 2. Mildly Thick Liquids / Level 2 3. No Straw 4. Small bites and drinks 5. Alternate bites and drinks 6. Frequent repeat swallow 7. Upright for all meals 8. Chin Tuck Posture 9. Speech therapy to address compensatory techniques and exercises to include [place], Effortful swallow, Tongue base retraction, and laryngeal elevation with a chin tuck against resistance.
--- NOTE | 2025-08-07 17:01 | PM.IMPN ---
Progress Note: A&P Assessment and Plan (1) Lobar pneumonia: Code(s): J18.1 - Lobar pneumonia, unspecified organism Status: Acute Assessment and Plan: Treated with IV fluids. -lactic was elevated at 2.5 and then came down to 1.6 with IV fluids. -routine nebulizer treatments. -continue with Rocephin and doxycycline IV antibiotics. -sputum culture pending Leukocytosis still persistent MRSA nares negative Will add Flagyl for anaerobic coverage (2) Atrial fibrillation: Code(s): I48.91 - Unspecified atrial fibrillation Status: Acute Assessment and Plan: -the patient remains in AFib with controlled heart rate -continue with Eliquis -continue with amiodarone With due to drop in H&H will hold Eliquis H&H remained stable No other signs of bleeding will resume Eliquis Due to prolonged QTC will hold amiodarone (3) Hyponatremia: Code(s): E87.1 - Hypo-osmolality and hyponatremia Status: Acute Assessment and Plan: -continue with IV fluids -check urine and serum osmolality -Lasix on hold -it was reported that the patient has some type of liver cancer. However cannot find it in his records and [facility]. This could also be another source of hyponatremia -continue to monitor renal function (4) Hypothyroidism: Code(s): E03.9 - Hypothyroidism, unspecified Status: Acute Assessment and Plan: -continue replacement (5) Acute upper GI bleed: Code(s): K92.2 - Gastrointestinal hemorrhage, unspecified Status: Acute Assessment and Plan: -check stool for occult blood -continue to monitor H&H -his initial H&H was 7.8 and 24.8. Repeat level was 8.7 and 27.0. Now he is 6.7 and 21.0 -he is hemodynamically stable. -it was reported that the patient had a coffee-ground emesis in the emergency room. -the patient is on Eliquis for AFib -hold Eliquis -GI has been consulted. Awaiting recommendation. Transfuse 1 unit of PRBC 08/01/2025 Needed another transfusion 08/02/2025 On Protonix IV b.i.d. No signs of active GI bleed Nuclear bleeding scan was negative H&H now stable (6) History of liver disease: Code(s): Z87.19 - Personal history of other diseases of the digestive system Status: Acute Assessment and Plan: -it was reported that the patient has possible liver cancer. Get records. May consider CT of the abdomen. -liver enzymes are elevated CT abdomen pelvis with multiple scattered hepatic masses consistent with metastatic disease. (7) BPH (benign prostatic hyperplasia): Code(s): N40.0 - Benign prostatic hyperplasia without lower urinary tract symptoms Status: Acute Assessment and Plan: -continue with Flomax (8) Seizure disorder: Code(s): G40.909 - Epilepsy, unspecified, not intractable, without status epilepticus Status: Acute Assessment and Plan: -continue with Keppra and Tegretol -check Keppra and Tegretol levels. -the dosages on his seizure medicine came from his home list. (9) Acute renal failure: Code(s): N17.9 - Acute kidney failure, unspecified Status: Acute Assessment and Plan: -could be related to the Lasix -the patient could also be dehydrated from his fever and or poor oral intake. Received a dose of Lasix 08/03/2025 Resume Lasix - Plan Dysphagia modified barium swallow performed mild dysesthesia with single episode of laryngeal penetration without aspiration. On dysphagia diet now. 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 CT abdomen reviewed Indeterminate right renal lesion 1.2 cm exophytic most likely proteinaceous/hemorrhagic cyst follow-up as an outpatient basis No overnight events. No new complaints. Abdominal pain is better. patient with pneumonia and difficulty with swallowing, concerning for aspiration pneumonia, patient is being treated with ceftriaxone, and doxycycline, Flagyl is added to cover for anaerobic, patient had a modified swallow study, will thickened diet to prevent aspiration, Generalized weakness present. patient stats feels better compared to when he arrived, will continue to monitor. DVT prophylaxis will resume apixaban as H&H has been stable now Subjective Date/time seen: 08/07/25 17:01 Interval history: No overnight events. No new complaints. Abdominal pain is better. patient with pneumonia and difficulty with swallowing, concerning for aspiration pneumonia, patient is being treated with ceftriaxone, and doxycycline, Flagyl is added to cover for anaerobic, patient had a modified swallow study, will thickened diet to prevent aspiration, Generalized weakness present. patient stats feels better compared to when he arrived, will continue to monitor. Review of Systems Review of Systems: ROS unobtainable: Yes unobtainable due to mental status Exam Narrative: Patient is comfortable, NAD HEENT: eyes are clear and none icteric LUNGS:CTA HEART: RR S1S2 ABD: BS+, Soft and nontender Lower extremities: no edema SKIN: nonjaundiced Neuro: grossly intact. Objective Data Vital Signs Vital Signs: Vital Signs - 24 hr 08/06/25 20:00 08/06/25 20:00 08/06/25 20:07 Temperature Pulse Rate 87 91 Respiratory Rate 18 Blood Pressure Pulse Oximetry Oxygen Delivery Room Air 08/06/25 20:08 08/06/25 20:15 08/06/25 21:10 Temperature Pulse Rate 85 78 Respiratory Rate 18 Blood Pressure Pulse Oximetry 97 Oxygen Delivery Room Air 08/06/25 21:13 08/07/25 00:00 08/07/25 01:39 Temperature 36.7 C Pulse Rate 79 77 75 Respiratory Rate 16 18 Blood Pressure 126/48 L Pulse Oximetry 97 Oxygen Delivery 08/07/25 04:00 08/07/25 05:49 08/07/25 07:44 Temperature Pulse Rate 77 78 83 Respiratory Rate Blood Pressure Pulse Oximetry Oxygen Delivery 08/07/25 08:00 08/07/25 08:00 08/07/25 08:01 Temperature Pulse Rate 79 79 79 Respiratory Rate 18 18 Blood Pressure Pulse Oximetry 92 Oxygen Delivery Room Air 08/07/25 08:04 08/07/25 08:10 08/07/25 12:00 Temperature Pulse Rate 76 80 Respiratory Rate 18 Blood Pressure Pulse Oximetry Oxygen Delivery Room Air 08/07/25 14:00 08/07/25 14:10 08/07/25 14:48 Temperature 37.1 C Pulse Rate 80 89 90 Respiratory Rate 16 18 Blood Pressure 135/54 L Pulse Oximetry 96 Oxygen Delivery 08/07/25 14:57 08/07/25 16:00 08/07/25 16:29 Temperature 36.8 C Pulse Rate 80 79 93 Respiratory Rate 18 20 Blood Pressure 150/96 H Pulse Oximetry 94 Oxygen Delivery Intake/Output Intake/Output: Intake & Output 08/04/25 08/05/25 08/06/25 08/07/25 23:59 23:59 23:59 23:59 Intake Total 586 1088 1220 780 Output Total 108 285 1564 600 Balance 86 538 -80 180 Meds/Results Medications: Active Medications Generic Name Dose Route Start Last Admin Trade Name Freq PRN Reason Stop Dose Admin Acetaminophen 650 mg 08/03/25 15:51 08/06/25 18:09 Acetaminophen 325 Mg Tablet PO 650 mg Q4H PRN Administration Mild Pain (1-3) or Fever Hydrocodone Bitart/Acetaminophen 1 tab 08/07/25 07:40 08/07/25 09:52 Hydrocodone/Acetaminophen (*Crx) 5-325 Mg Tablet PO 1 tab Q6H PRN Administration Pain Rated 4-6 Amiodarone HCl 200 mg 08/06/25 12:25 08/07/25 07:44 Amiodarone Hcl 200 Mg Tablet PO 200 mg DAILY@0800 ROSMERY Administration Apixaban 5 mg 08/05/25 21:00 08/07/25 07:44 Apixaban 5 Mg Tablet PO 5 mg Q12HR ROSMERY Administration Furosemide 40 mg 08/04/25 15:40 08/07/25 07:43 Furosemide 40 Mg Tablet PO 40 mg DAILY ROSMERY Administration Guaifenesin 600 mg 08/03/25 21:00 08/07/25 07:43 Guaifenesin 12 Hr 600 Mg Tabcr PO 600 mg Q12HR ROSMERY Administration Guaifenesin/Dextromethorphan 10 ml 08/01/25 04:21 08/04/25 05:35 Guaifenesin/Dextromethorphan 10 Ml Udc PO 10 ml Q4H PRN Administration Cough Ceftriaxone Sodium 1 gm/ 50 mls @ 100 mls/hr 08/01/25 23:00 08/06/25 21:44 Sodium Chloride IVPB 100 mls/hr Q24H ROSMERY Administration Ipratropium [place] 0.5 mg 08/03/25 20:00 08/07/25 14:48 Ipratropium Br 0.02% Inh Soln 0.5 Mg/2.5 Ml Vial INHALATION 0.5 mg Q6HRT ROSMERY Administration Levalbuterol HCl 1.25 mg 08/03/25 20:00 08/07/25 14:48 Levalbuterol Neb 1.25 Mg/3 Ml INHALATION 1.25 mg Q6HRT ROSMERY Administration Levetiracetam 250 mg 08/01/25 18:15 08/03/25 08:18 Levetiracetam 250 Mg Tablet PO 250 mg DAILY PRN Administration trigeminal neuralgia Levothyroxine Sodium 150 mcg 08/01/25 06:30 08/07/25 05:49 Levothyroxine Sodium 150 Mcg Tablet PO 150 mcg DAILY@0630 ROSMERY Administration Metoprolol Tartrate 25 mg 08/03/25 14:00 08/07/25 14:10 Metoprolol Tartrate 25 Mg Tablet PO 25 mg Q8HR ROSMERY Administration Metronidazole 500 mg 08/05/25 13:00 08/07/25 16:10 Metronidazole 500 Mg Tablet PO 08/12/25 06:01 500 mg Q8HR ROSMERY Administration Multivitamins/Minerals 1 tablet 08/01/25 09:00 08/07/25 07:43 Opti-Gen Tab PO 1 tablet DAILY ROSMERY Administration Oxcarbazepine 600 mg 08/01/25 21:00 08/07/25 07:43 Oxcarbazepine 300 Mg Tablet PO 600 mg Q12HR ROSMERY Administration Oxcarbazepine 150 mg 08/02/25 15:00 08/07/25 07:43 Oxcarbazepine 150 Mg Tablet PO 150 mg DAILY ROSMERY Administration Pantoprazole Sodium 40 mg 08/01/25 21:00 08/07/25 07:46 Pantoprazole Sodium Iv 40 Mg Vial IV PUSH 40 mg Q12HR ROSMERY Administration Polyethylene Glycol 17 gm 08/02/25 09:00 08/07/25 07:44 Polyethylene Glycol 3350 17 Gm Powd.Pack PO 17 gm QAM ROSMERY Administration Spironolactone 25 mg 08/01/25 09:00 08/07/25 07:43 Spironolactone 25 Mg Tablet PO 25 mg DAILY ROSMERY Administration Tamsulosin HCl 0.8 mg 08/02/25 21:00 08/06/25 21:10 Tamsulosin Hcl 0.4 Mg Capsule PO 0.8 mg HS ROSMERY Administration Radiology Results: ITS Impressions GI Bleed Scan Nuclear Medicine 08/01/25 16:18 IMPRESSION: 1. No scintigraphic evidence for active gastrointestinal bleeding. Chest X-Ray 08/03/25 14:57 Impression: CHF. Superimposed probable pneumonia. Chest/Abdomen/Pelvis CT 08/04/25 09:11 IMPRESSION: 1. Bilateral inferior predominant lung disease which could represent, pulmonary edema, atelectasis or some combination thereof with very small right and trace left pleural effusions. 2. Cardiomegaly with enlargement of the central pulmonary arteries consistent with pulmonary arterial hypertension. 3. 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 4. Multiple scattered hepatic masses consistent with metastatic disease. If this is a new finding would recommend ultrasound-guided biopsy. 5. Indeterminate 1.2 cm exophytic right renal lesion most likely proteinaceous/hemorrhagic cyst although differential includes solid neoplasm. Consider follow-up pre and postcontrast MRI or CT when clinically improved. 6. Tiny focus of pneumobilia within the normal gallbladder likely related to a common bile duct biliary stent. Modified Barium Swallow 08/07/25 10:38 IMPRESSION: Patient tolerated regular consistency oral feedings in the upright position. Please correlate with speech pathologist findings and specific feeding recommendations. Quality VTE Prophylaxis VTE prophylaxis: mechanical ordered
[2025-08-07] MEDS: TAMSULOSIN HCL 0.4 MG CAPSULE 0.8 MG PO (20:07)
--- NOTE | 2025-08-07 23:14 | PC.NURSE ---
On 08/07/25, REYES Gonzales orientee, provided care and completed [facility] documentation on this patient. I have reviewed REYES Gonzales's documentation and agree with the findings.
[2025-08-07] MEDS: cefTRIAXone 1 GM in SODIUM CHLORIDE 0.9% IV 50 ML 100 ML IVPB (23:17)
[2025-08-08] VITALS (20 sets, daily range): BP systolic 114–136; BP diastolic 50–58; PULSE 72–89; RESP 16–22; TEMP 36.3–36.7; O2SAT 95–99
[2025-08-08] MEDS: IPRATROPIUM BR 0.02% INH SOLN 0.5 MG/2.5 ML VIAL INHALATION ×4 (02:51→20:31)
[2025-08-08] MEDS: LEVOTHYROXINE SODIUM 150 MCG TABLET PO (05:33)
[2025-08-08] MEDS: METOPROLOL TARTRATE 25 MG TABLET PO ×3 (05:33→21:27)
[2025-08-08] MEDS: SPIRONOLACTONE 25 MG TABLET PO (08:47)
[2025-08-08] MEDS: AMIODARONE HCL 200 MG TABLET PO (08:47)
[2025-08-08] MEDS: OPTI-GEN TAB 1 TABLET PO (08:47)
[2025-08-08] MEDS: guaiFENesin 12 HR 600 MG TABCR PO ×2 (08:47→21:27)
[2025-08-08] MEDS: FUROSEMIDE 40 MG TABLET PO (08:48)
[2025-08-08] MEDS: APIXABAN 5 MG TABLET PO ×2 (08:49→21:26)
--- NOTE | 2025-08-08 10:08 | PCNFU ---
Nutrition Follow-Up Complete: Inadequate oral intake related to loss of appetite as evidenced by pt report, intakes Intakes >50%- Slow progress toward goal. Continue with same goal Goal: Pt current nutrition is Regular, Mildly thick L2 liquids. Ensure + HP TID (350 kcal, 20 g protein) Nutrition recommendation: No new recommendations. Continue current nutrition care plan and orders. Agree with orders Last recorded weight is 85.7 kg. Bowel Motility: +1 08/07 Labs Reviewed: No labs since 08/06/25 Meds Noted: aldactone, miralax, protonix Skin: No skin issues Additional Notes: MBSS 08/07/25 with recommendations of mildly thick L2 liquids. Intakes poor to fair, 0-50%. Continue current orders Monitoring intakes, weights, labs, supplement tolerance, plan of care Follow up in 5 days
[2025-08-08] MEDS: PANTOPRAZOLE SODIUM IV 40 MG VIAL IV PUSH ×2 (10:11→21:28)
--- NOTE | 2025-08-08 10:32 | PCPTNOTE ---
Attempted to see patient for PT, however patient just got done working with OT and felt he needed a rest break before working with PT.
--- NOTE | 2025-08-08 16:26 | PM.IMPN ---
Progress Note: A&P Assessment and Plan (1) Lobar pneumonia: Code(s): J18.1 - Lobar pneumonia, unspecified organism Status: Acute Assessment and Plan: Treated with IV fluids. -lactic was elevated at 2.5 and then came down to 1.6 with IV fluids. -routine nebulizer treatments. -continue with Rocephin and doxycycline IV antibiotics. -sputum culture pending Leukocytosis still persistent MRSA nares negative Will add Flagyl for anaerobic coverage (2) Atrial fibrillation: Code(s): I48.91 - Unspecified atrial fibrillation Status: Acute Assessment and Plan: -the patient remains in AFib with controlled heart rate -continue with Eliquis -continue with amiodarone With due to drop in H&H will hold Eliquis H&H remained stable No other signs of bleeding will resume Eliquis Due to prolonged QTC will hold amiodarone (3) Hyponatremia: Code(s): E87.1 - Hypo-osmolality and hyponatremia Status: Acute Assessment and Plan: -continue with IV fluids -check urine and serum osmolality -Lasix on hold -it was reported that the patient has some type of liver cancer. However cannot find it in his records and I was unable to reach anybody at the long term that could verify this. This could also be another source of hyponatremia -continue to monitor renal function (4) Hypothyroidism: Code(s): E03.9 - Hypothyroidism, unspecified Status: Acute Assessment and Plan: -continue replacement (5) Acute upper GI bleed: Code(s): K92.2 - Gastrointestinal hemorrhage, unspecified Status: Acute Assessment and Plan: -check stool for occult blood -continue to monitor H&H -his initial H&H was 7.8 and 24.8. Repeat level was 8.7 and 27.0. Now he is 6.7 and 21.0 -he is hemodynamically stable. -it was reported that the patient had a coffee-ground emesis in the emergency room. -the patient is on Eliquis for AFib -hold Eliquis -GI has been consulted. Awaiting recommendation. Transfuse 1 unit of PRBC 08/01/2025 Needed another transfusion 08/02/2025 On Protonix IV b.i.d. No signs of active GI bleed Nuclear bleeding scan was negative H&H now stable (6) History of liver disease: Code(s): Z87.19 - Personal history of other diseases of the digestive system Status: Acute Assessment and Plan: -it was reported that the patient has possible liver cancer. Get records. May consider CT of the abdomen. -liver enzymes are elevated CT abdomen pelvis with multiple scattered hepatic masses consistent with metastatic disease. (7) BPH (benign prostatic hyperplasia): Code(s): N40.0 - Benign prostatic hyperplasia without lower urinary tract symptoms Status: Acute Assessment and Plan: -continue with Flomax (8) Seizure disorder: Code(s): G40.909 - Epilepsy, unspecified, not intractable, without status epilepticus Status: Acute Assessment and Plan: -continue with Keppra and Tegretol -check Keppra and Tegretol levels. -the dosages on his seizure medicine came from his home list. (9) Acute renal failure: Code(s): N17.9 - Acute kidney failure, unspecified Status: Acute Assessment and Plan: -could be related to the Lasix -the patient could also be dehydrated from his fever and or poor oral intake. Received a dose of Lasix 08/03/2025 Resume Lasix - Plan Dysphagia modified barium swallow performed mild dysesthesia with single episode of laryngeal penetration without aspiration. On dysphagia diet now. 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 CT abdomen reviewed Indeterminate right renal lesion 1.2 cm exophytic most likely proteinaceous/hemorrhagic cyst follow-up as an outpatient basis No overnight events. No new complaints. Abdominal pain is better. patient with pneumonia and difficulty with swallowing, concerning for aspiration pneumonia, patient is being treated with ceftriaxone, and doxycycline, Flagyl is added to cover for anaerobic, patient had a modified swallow study, will thickened diet to prevent aspiration, patient repeat chest x-ray showed persistent mild opacities in the right mid to lower and left lower lung zones which could represent atelectasis or pneumonia. Generalized weakness present. patient stats feels better compared to when he arrived, will continue to monitor. today spoke with patient son, agrees to place patient on DNR, will consider hospice, will consult livestock caretaker for hospice consult. Subjective Date/time seen: 08/08/25 16:26 Interval history: No overnight events. No new complaints. Abdominal pain is better. patient with pneumonia and difficulty with swallowing, concerning for aspiration pneumonia, patient is being treated with ceftriaxone, and doxycycline, Flagyl is added to cover for anaerobic, patient had a modified swallow study, will thickened diet to prevent aspiration, patient repeat chest x-ray showed persistent mild opacities in the right mid to lower and left lower lung zones which could represent atelectasis or pneumonia. Generalized weakness present. patient stats feels better compared to when he arrived, will continue to monitor. today spoke with patient son, agrees to place patient on DNR, will consider hospice, will consult livestock caretaker for hospice consult. Review of Systems Review of Systems: ROS unobtainable: Yes unobtainable due to mental status Exam Narrative: Patient is comfortable, NAD HEENT: eyes are clear and none icteric LUNGS:CTA HEART: RR S1S2 ABD: BS+, Soft and nontender Lower extremities: no edema SKIN: nonjaundiced Neuro: grossly intact. Objective Data Vital Signs Vital Signs: Vital Signs - 24 hr 08/07/25 20:00 08/07/25 20:00 08/07/25 21:06 Temperature Pulse Rate 84 78 Respiratory Rate 16 Blood Pressure Pulse Oximetry Oxygen Delivery Room Air 08/07/25 21:10 08/07/25 21:15 08/07/25 21:53 Temperature Pulse Rate 78 80 72 Respiratory Rate 16 16 Blood Pressure Pulse Oximetry 95 Oxygen Delivery Room Air 08/07/25 22:00 08/08/25 00:00 08/08/25 02:53 Temperature 36.4 C L Pulse Rate 74 83 74 Respiratory Rate 16 16 Blood Pressure 139/65 Pulse Oximetry 97 Oxygen Delivery 08/08/25 04:00 08/08/25 05:33 08/08/25 06:00 Temperature 36.3 C L Pulse Rate 89 72 74 Respiratory Rate 20 Blood Pressure 130/53 L Pulse Oximetry 95 Oxygen Delivery 08/08/25 07:24 08/08/25 07:24 08/08/25 07:37 Temperature Pulse Rate 75 78 Respiratory Rate 16 16 Blood Pressure Pulse Oximetry 95 Oxygen Delivery Room Air 08/08/25 08:00 08/08/25 08:47 08/08/25 08:57 Temperature Pulse Rate 80 79 Respiratory Rate Blood Pressure Pulse Oximetry Oxygen Delivery Room Air 08/08/25 11:30 08/08/25 13:22 08/08/25 13:35 Temperature 36.3 C L Pulse Rate 78 78 78 Respiratory Rate 22 H 16 16 Blood Pressure 136/50 L Pulse Oximetry 99 Oxygen Delivery Room Air 08/08/25 13:56 Temperature Pulse Rate 81 Respiratory Rate Blood Pressure Pulse Oximetry Oxygen Delivery Intake/Output Intake/Output: Intake & Output 08/05/25 08/06/25 08/07/25 08/08/25 23:59 23:59 23:59 23:59 Intake Total 1088 1270 2170 570 Output Total 550 1300 1100 600 Balance 538 -30 1070 -30 Meds/Results Medications: Active Medications Generic Name Dose Route Start Last Admin Trade Name Freq PRN Reason Stop Dose Admin Acetaminophen 650 mg 08/03/25 15:51 08/06/25 18:09 Acetaminophen 325 Mg Tablet PO 650 mg Q4H PRN Administration Mild Pain (1-3) or Fever Hydrocodone Bitart/Acetaminophen 1 tab 08/07/25 07:40 08/07/25 09:52 Hydrocodone/Acetaminophen (*Crx) 5-325 Mg Tablet PO 1 tab Q6H PRN Administration Pain Rated 4-6 Amiodarone HCl 200 mg 08/06/25 12:25 08/08/25 08:47 Amiodarone Hcl 200 Mg Tablet PO 200 mg DAILY@0800 ROSMERY Administration Apixaban 5 mg 08/05/25 21:00 08/08/25 08:49 Apixaban 5 Mg Tablet PO 5 mg Q12HR ROSMERY Administration Furosemide 40 mg 08/04/25 15:40 08/08/25 08:48 Furosemide 40 Mg Tablet PO 40 mg DAILY ROSMERY Administration Guaifenesin 600 mg 08/03/25 21:00 08/08/25 08:47 Guaifenesin 12 Hr 600 Mg Tabcr PO 600 mg Q12HR ROSMERY Administration Guaifenesin/Dextromethorphan 10 ml 08/01/25 04:21 08/04/25 05:35 Guaifenesin/Dextromethorphan 10 Ml Udc PO 10 ml Q4H PRN Administration Cough Ceftriaxone Sodium 1 gm/ 50 mls @ 100 mls/hr 08/01/25 23:00 08/07/25 23:47 Sodium Chloride IVPB Infused Q24H ROSMERY Infusion Ipratropium [place] 0.5 mg 08/03/25 20:00 08/08/25 13:22 Ipratropium Br 0.02% Inh Soln 0.5 Mg/2.5 Ml Vial INHALATION 0.5 mg Q6HRT ROSMERY Administration Levalbuterol HCl 1.25 mg 08/03/25 20:00 08/08/25 13:22 Levalbuterol Neb 1.25 Mg/3 Ml INHALATION 1.25 mg Q6HRT ROSMERY Administration Levetiracetam 250 mg 08/01/25 18:15 08/03/25 08:18 Levetiracetam 250 Mg Tablet PO 250 mg DAILY PRN Administration trigeminal neuralgia Levothyroxine Sodium 150 mcg 08/01/25 06:30 08/08/25 05:33 Levothyroxine Sodium 150 Mcg Tablet PO 150 mcg DAILY@0630 ROSMERY Administration Metoprolol Tartrate 25 mg 08/03/25 14:00 08/08/25 13:56 Metoprolol Tartrate 25 Mg Tablet PO 25 mg Q8HR ROSMERY Administration Metronidazole 500 mg 08/05/25 13:00 08/08/25 13:57 Metronidazole 500 Mg Tablet PO 08/12/25 06:01 500 mg Q8HR ROSMERY Administration Multivitamins/Minerals 1 tablet 08/01/25 09:00 08/08/25 08:47 Opti-Gen Tab PO 1 tablet DAILY ROSMERY Administration Oxcarbazepine 600 mg 08/01/25 21:00 08/08/25 08:47 Oxcarbazepine 300 Mg Tablet PO 600 mg Q12HR ROSMERY Administration Oxcarbazepine 150 mg 08/02/25 15:00 08/08/25 08:49 Oxcarbazepine 150 Mg Tablet PO 150 mg DAILY ROSMERY Administration Pantoprazole Sodium 40 mg 08/01/25 21:00 08/08/25 10:11 Pantoprazole Sodium Iv 40 Mg Vial IV PUSH 40 mg Q12HR ROSMERY Administration Polyethylene Glycol 17 gm 08/02/25 09:00 08/08/25 08:49 Polyethylene Glycol 3350 17 Gm Powd.Pack PO 17 gm QAM ROSMERY Administration Spironolactone 25 mg 08/01/25 09:00 08/08/25 08:47 Spironolactone 25 Mg Tablet PO 25 mg DAILY ROSMERY Administration Tamsulosin HCl 0.8 mg 08/02/25 21:00 08/07/25 20:07 Tamsulosin Hcl 0.4 Mg Capsule PO 0.8 mg HS ROSMERY Administration Radiology Results: ITS Impressions GI Bleed Scan Nuclear Medicine 08/01/25 16:18 IMPRESSION: 1. No scintigraphic evidence for active gastrointestinal bleeding. Chest/Abdomen/Pelvis CT 08/04/25 09:11 IMPRESSION: 1. Bilateral inferior predominant lung disease which could represent, pulmonary edema, atelectasis or some combination thereof with very small right and trace left pleural effusions. 2. Cardiomegaly with enlargement of the central pulmonary arteries consistent with pulmonary arterial hypertension. 3. 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 4. Multiple scattered hepatic masses consistent with metastatic disease. If this is a new finding would recommend ultrasound-guided biopsy. 5. Indeterminate 1.2 cm exophytic right renal lesion most likely proteinaceous/hemorrhagic cyst although differential includes solid neoplasm. Consider follow-up pre and postcontrast MRI or CT when clinically improved. 6. Tiny focus of pneumobilia within the normal gallbladder likely related to a common bile duct biliary stent. Modified Barium Swallow 08/07/25 10:38 IMPRESSION: Patient tolerated regular consistency oral feedings in the upright position. Please correlate with speech pathologist findings and specific feeding recommendations. Chest X-Ray 08/08/25 07:47 IMPRESSION: 1. Persistent mild opacities in the right mid to lower and left lower lung zones which could represent atelectasis or pneumonia. Labs Labs: Laboratory Results - last 24 hr 08/08/25 11:27 POC Capillary Glucose 121 H Quality VTE Prophylaxis VTE prophylaxis: mechanical ordered
[2025-08-08] MEDS: TAMSULOSIN HCL 0.4 MG CAPSULE 0.8 MG PO (21:27)
[2025-08-09] VITALS (18 sets, daily range): BP systolic 126–130; BP diastolic 48–55; PULSE 72–82; RESP 16–24; TEMP 36.1–36.5; O2SAT 96–98
[2025-08-09] MEDS: cefTRIAXone 1 GM in SODIUM CHLORIDE 0.9% IV 50 ML 100 ML IVPB ×2 (00:06→23:51)
--- NOTE | 2025-08-09 01:37 | PCRCNOTE ---
During 1800 TX Pt asked not to be waken up for 0200 TX.
[2025-08-09] MEDS: METOPROLOL TARTRATE 25 MG TABLET PO ×3 (06:29→21:23)
[2025-08-09] MEDS: LEVOTHYROXINE SODIUM 150 MCG TABLET PO (06:29)
[2025-08-09] MEDS: OPTI-GEN TAB 1 TABLET PO (08:25)
[2025-08-09] MEDS: FUROSEMIDE 40 MG TABLET PO (08:25)
[2025-08-09] MEDS: SPIRONOLACTONE 25 MG TABLET PO (08:25)
[2025-08-09] MEDS: guaiFENesin 12 HR 600 MG TABCR PO ×2 (08:26→21:23)
[2025-08-09] MEDS: PANTOPRAZOLE SODIUM IV 40 MG VIAL IV PUSH ×2 (08:26→21:23)
[2025-08-09] MEDS: AMIODARONE HCL 200 MG TABLET PO (08:26)
[2025-08-09] MEDS: APIXABAN 5 MG TABLET PO ×2 (08:26→21:23)
[2025-08-09] MEDS: IPRATROPIUM BR 0.02% INH SOLN 0.5 MG/2.5 ML VIAL INHALATION ×3 (09:10→21:32)
[2025-08-09] MEDS: TAMSULOSIN HCL 0.4 MG CAPSULE 0.8 MG PO (21:22)
[2025-08-10] VITALS (20 sets, daily range): BP systolic 115–134; BP diastolic 47–51; PULSE 75–105; RESP 16–20; TEMP 35.8–36.4; O2SAT 97–98
[2025-08-10] MEDS: IPRATROPIUM BR 0.02% INH SOLN 0.5 MG/2.5 ML VIAL INHALATION ×4 (02:16→21:13)
[2025-08-10] MEDS: LEVOTHYROXINE SODIUM 150 MCG TABLET PO (05:31)
[2025-08-10] MEDS: METOPROLOL TARTRATE 25 MG TABLET PO ×3 (05:31→21:40)
[2025-08-10] MEDS: AMIODARONE HCL 200 MG TABLET PO (08:38)
[2025-08-10] MEDS: guaiFENesin 12 HR 600 MG TABCR PO ×2 (08:38→21:40)
[2025-08-10] MEDS: APIXABAN 5 MG TABLET PO ×2 (08:38→21:41)
[2025-08-10] MEDS: FUROSEMIDE 40 MG TABLET PO (08:38)
[2025-08-10] MEDS: SPIRONOLACTONE 25 MG TABLET PO (08:38)
[2025-08-10] MEDS: OPTI-GEN TAB 1 TABLET PO (08:38)
[2025-08-10] MEDS: PANTOPRAZOLE SODIUM IV 40 MG VIAL IV PUSH ×2 (08:41→21:41)
[2025-08-10 11:09] LABS: Hematocrit 30.3 % (42.0-52.0); Hemoglobin 9.8 g/dL (14.0-18.0); Mean Corpuscular HGB Conc 32.3 g/dl (32-36); Mean Corpuscular Hemoglobin 28.6 pg (26-34); Mean Corpuscular Volume 88.3 fl (80-100); Platelet Count Result 282 k/mm3 (150-375); Red Blood Count 3.43 M/mm3 (4.6-6.20); White Blood Count 17.5 K/mm3 (4.5-10.0)
[2025-08-10 11:29] LABS: Albumin Level 3.1 g/dL (3.5-5.1); Anion Gap 13 mmol/L (4-12); Blood Urea Nitrogen 56 mg/dL (9-20); Calcium 8.5 mg/dL (8.4-10.2); Carbon Dioxide 23 mmol/L (22-30); Chloride 99 mmol/L (98-107); Estimated CRCL calculation 32 ml/min; Estimated Glomerular Filt Rate 43; Glucose 137 mg/dL (65-110); Magnesium 2.4 mg/dL (1.6-2.3); Potassium 3.8 mmol/L (3.4-5.0); Sodium 135 mmol/L (137-145)
--- NOTE | 2025-08-10 14:09 | P.PNIM_ITS ---
Progress Note: A&P Assessment and Plan (1) Lobar pneumonia: Code(s): J18.1 - Lobar pneumonia, unspecified organism Status: Acute Assessment and Plan: Treated with IV fluids. -lactic was elevated at 2.5 and then came down to 1.6 with IV fluids. -routine nebulizer treatments. -continue with Rocephin and doxycycline IV antibiotics. -sputum culture pending Leukocytosis still persistent MRSA nares negative Will add Flagyl for anaerobic coverage (2) Atrial fibrillation: Code(s): I48.91 - Unspecified atrial fibrillation Status: Acute Assessment and Plan: -the patient remains in AFib with controlled heart rate -continue with Eliquis -continue with amiodarone With due to drop in H&H will hold Eliquis H&H remained stable No other signs of bleeding will resume Eliquis Due to prolonged QTC will hold amiodarone (3) Hyponatremia: Code(s): E87.1 - Hypo-osmolality and hyponatremia Status: Acute Assessment and Plan: -continue with IV fluids -check urine and serum osmolality -Lasix on hold -it was reported that the patient has some type of liver cancer. However cannot find it in his records and I was unable to reach [facility] at the [facility] that could verify this. This could also be another source of hyponatremia -continue to monitor renal function (4) Hypothyroidism: Code(s): E03.9 - Hypothyroidism, unspecified Status: Acute Assessment and Plan: -continue replacement (5) Acute upper GI bleed: Code(s): K92.2 - Gastrointestinal hemorrhage, unspecified Status: Acute Assessment and Plan: -check stool for occult blood -continue to monitor H&H -his initial H&H was 7.8 and 24.8. Repeat level was 8.7 and 27.0. Now he is 6.7 and 21.0 -he is hemodynamically stable. -it was reported that the patient had a coffee-ground emesis in the emergency room. -the patient is on Eliquis for AFib -hold Eliquis -GI has been consulted. Awaiting recommendation. Transfuse 1 unit of PRBC 08/01/2025 Needed another transfusion 08/02/2025 On Protonix IV b.i.d. No signs of active GI bleed Nuclear bleeding scan was negative H&H now stable (6) History of liver disease: Code(s): Z87.19 - Personal history of other diseases of the digestive system Status: Acute Assessment and Plan: -it was reported that the patient has possible liver cancer. Get records. May consider CT of the abdomen. -liver enzymes are elevated CT abdomen pelvis with multiple scattered hepatic masses consistent with metastatic disease. (7) BPH (benign prostatic hyperplasia): Code(s): N40.0 - Benign prostatic hyperplasia without lower urinary tract symptoms Status: Acute Assessment and Plan: -continue with Flomax (8) Seizure disorder: Code(s): G40.909 - Epilepsy, unspecified, not intractable, without status epilepticus Status: Acute Assessment and Plan: -continue with Keppra and Tegretol -check Keppra and Tegretol levels. -the dosages on his seizure medicine came from his home list. (9) Acute renal failure: Code(s): N17.9 - Acute kidney failure, unspecified Status: Acute Assessment and Plan: -could be related to the Lasix -the patient could also be dehydrated from his fever and or poor oral intake. Received a dose of Lasix 08/03/2025 Resume Lasix - Plan Dysphagia modified barium swallow performed mild dysesthesia with single episode of laryngeal penetration without aspiration. On dysphagia diet now. 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 CT abdomen reviewed Indeterminate right renal lesion 1.2 cm exophytic most likely proteinaceous/hemorrhagic cyst follow-up as an outpatient basis No overnight events. No new complaints. Abdominal pain is better. patient with pneumonia and difficulty with swallowing, concerning for aspiration pneumonia, patient is being treated with ceftriaxone, and doxycycline, Flagyl is added to cover for anaerobic, patient had a modified swallow study, will thickened diet to prevent aspiration, patient repeat chest x-ray showed persistent mild opaciti es in the right mid to lower and left lower lung zones which could represent atelectasis or pneumonia. Generalized weakness present. patient stats feels better compared to when he arrived, will continue to monitor. on 08/08 spoke with patient son, agrees to place patient on DNR, will consider hospice, will consult healthcare facility administrator for hospice consult. patient is now hospice patient, waiting for NH transfer. Subjective Date/time seen: 08/09/25 14:09 Interval history: No overnight events. No new complaints. Abdominal pain is better. patient with pneumonia and difficulty with swallowing, concerning for aspiration pneumonia, patient is being treated with ceftriaxone, and doxycycline, Flagyl is added to cover for anaerobic, patient had a modified swallow study, will thickened diet to prevent aspiration, patient repeat chest x-ray showed persistent mild opacities in the right mid to lower and left lower lung zones which could represent atelectasis or pneumonia. Generalized weakness present. patient stats feels better compared to when he arrived, will continue to monitor. on 08/08 spoke with patient son, agrees to place patient on DNR, will consider hospice, will consult healthcare facility administrator for hospice consult. patient is now hospice patient, waiting for NH transfer. Review of Systems Review of Systems: ROS unobtainable: Yes unobtainable due to mental status Exam Narrative: Patient is comfortable, NAD HEENT: eyes are clear and none icteric LUNGS:CTA HEART: RR S1S2 ABD: BS+, Soft and nontender Lower extremities: no edema SKIN: nonjaundiced Neuro: grossly intact. Const: General: cooperative, comfortable, no acute distress, well developed, average body habitus and well nourished Nutritional Appearance: average body habitus and well nourished Orientation/consciousness: oriented to person and oriented to place HENMT: Head: normal to inspection, No palpable skull fracture present, normocephalic and atraumatic Ears: external ears normal Eyes: General: appearance normal, both eyes and all related structures Alignment and Position: alignment normal Neck: Neck: normal visual inspection Chest: Chest palpation & inspection: normal inspection of the chest Resp: Effort & Inspection: normal respiratory effort Auscultation: clear to auscultation bilaterally Cardio: Rate: regular rate Rhythm: abnormal rhythm regularly irregular Peripheral pulses: Peripheral pulses 2+ throughout GI: Inspection: normal to inspection Skin: General skin exam: normal color Lesions: no lesions Rashes: no rashes Trauma: no lacerations or abrasions Wounds: no wounds Other: Light green bruising noted to the left anterior shoulder Neuro: General: oriented to person and oriented to place Other: Patient is a poor historian. The patient keeps falling asleep during the interview. Is having difficulty answering questions. He continues to fall asleep not answer the questions. Extrem: General: normal to inspection Right upper extremity: normal to inspection and shoulder/upper arm Left upper extremity: normal to inspection Right lower extremity: normal to inspection Left lower extremity: normal to inspection Psych: Appearance: grossly normal Objective Data Vital Signs Vital Signs: Vital Signs - 24 hr 08/09/25 14:16 08/09/25 16:00 08/09/25 20:00 Temperature Pulse Rate 82 75 Respiratory Rate 16 Blood Pressure Pulse Oximetry Oxygen Delivery Room Air 08/09/25 20:00 08/09/25 21:32 08/09/25 21:35 Temperature 36.1 C L Pulse Rate 78 80 78 Respiratory Rate 16 24 H Blood Pressure 129/55 L Pulse Oximetry 98 Oxygen Delivery 08/09/25 21:41 08/09/25 21:53 08/10/25 00:00 Temperature Pulse Rate 80 96 Respiratory Rate 16 Blood Pressure Pulse Oximetry 96 Oxygen Delivery Room Air 08/10/25 02:18 08/10/25 04:00 08/10/25 05:31 Temperature Pulse Rate 80 84 98 Respiratory Rate 16 Blood Pressure Pulse Oximetry Oxygen Delivery 08/10/25 06:00 08/10/25 06:56 08/10/25 07:03 Temperature 35.8 C L Pulse Rate 75 88 84 Respiratory Rate 20 18 16 Blood Pressure 115/47 L Pulse Oximetry 97 Oxygen Delivery 08/10/25 08:00 08/10/25 08:38 08/10/25 08:40 Temperature Pulse Rate 80 84 Respiratory Rate Blood Pressure Pulse Oximetry 97 Oxygen Delivery Room Air 08/10/25 12:00 08/10/25 13:22 08/10/25 13:33 Temperature Pulse Rate 77 88 86 Respiratory Rate 18 16 Blood Pressure Pulse Oximetry Oxygen Delivery Intake/Output Intake/Output: Intake & Output 08/07/25 08/08/25 08/09/25 08/10/25 23:59 23:59 23:59 23:59 Intake Total 2170 695 840 720 Output Total 1100 1150 900 250 Balance 1088 -455 -60 470 Meds/Results Medications: Active Medications Generic Name Dose Route Start Last Admin Trade Name Freq PRN Reason Stop Dose Admin Acetaminophen 650 mg 08/03/25 15:51 08/06/25 18:09 Acetaminophen 325 Mg Tablet PO 650 mg Q4H PRN Administration Mild Pain (1-3) or Fever Hydrocodone Bitart/Acetaminophen 1 tab 08/07/25 07:40 08/07/25 09:52 Hydrocodone/Acetaminophen (*Crx) 5-325 Mg Tablet PO 1 tab Q6H PRN Administration Pain Rated 4-6 Amiodarone HCl 200 mg 08/06/25 12:25 08/10/25 08:38 Amiodarone Hcl 200 Mg Tablet PO 200 mg DAILY@0800 ROSMERY Administration Apixaban 5 mg 08/05/25 21:00 08/10/25 08:38 Apixaban 5 Mg Tablet PO 5 mg Q12HR ROSMERY Administration Furosemide 40 mg 08/04/25 15:40 08/10/25 08:38 Furosemide 40 Mg Tablet PO 40 mg DAILY ROSMERY Administration Guaifenesin 600 mg 08/03/25 21:00 08/10/25 08:38 Guaifenesin 12 Hr 600 Mg Tabcr PO 600 mg Q12HR ROSMERY Administration Guaifenesin/Dextromethorphan 10 ml 08/01/25 04:21 08/04/25 05:35 Guaifenesin/Dextromethorphan 10 Ml Udc PO 10 ml Q4H PRN Administration Cough Ceftriaxone Sodium 1 gm/ 50 mls @ 100 mls/hr 08/01/25 23:00 08/09/25 23:51 Sodium Chloride IVPB 100 mls/hr Q24H ROSMERY Administration Ipratropium [place] 0.5 mg 08/03/25 20:00 08/10/25 13:21 Ipratropium Br 0.02% Inh Soln 0.5 Mg/2.5 Ml Vial INHALATION 0.5 mg Q6HRT ROSMERY Administration Levalbuterol HCl 1.25 mg 08/03/25 20:00 08/10/25 13:21 Levalbuterol Neb 1.25 Mg/3 Ml INHALATION 1.25 mg Q6HRT ROSMERY Administration Levetiracetam 250 mg 08/01/25 18:15 08/03/25 08:18 Levetiracetam 250 Mg Tablet PO 250 mg DAILY PRN Administration trigeminal neuralgia Levothyroxine Sodium 150 mcg 08/01/25 06:30 08/10/25 05:31 Levothyroxine Sodium 150 Mcg Tablet PO 150 mcg DAILY@0630 ROSMERY Administration Metoprolol Tartrate 25 mg 08/03/25 14:00 08/10/25 05:31 Metoprolol Tartrate 25 Mg Tablet PO 25 mg Q8HR ROSMERY Administration Metronidazole 500 mg 08/05/25 13:00 08/10/25 05:31 Metronidazole 500 Mg Tablet PO 08/12/25 06:01 500 mg Q8HR ROSMERY Administration Multivitamins/Minerals 1 tablet 08/01/25 09:00 08/10/25 08:38 Opti-Gen Tab PO 1 tablet DAILY ROSMERY Administration Oxcarbazepine 600 mg 08/01/25 21:00 08/10/25 08:38 Oxcarbazepine 300 Mg Tablet PO 600 mg Q12HR ROSMERY Administration Oxcarbazepine 150 mg 08/02/25 15:00 08/10/25 08:38 Oxcarbazepine 150 Mg Tablet PO 150 mg DAILY ROSMERY Administration Pantoprazole Sodium 40 mg 08/01/25 21:00 08/10/25 08:41 Pantoprazole Sodium Iv 40 Mg Vial IV PUSH 40 mg Q12HR ROSMERY Administration Polyethylene Glycol 17 gm 08/02/25 09:00 08/10/25 08:44 Polyethylene Glycol 3350 17 Gm Powd.Pack PO Not Given QAM ROSMERY Spironolactone 25 mg 08/01/25 09:00 08/10/25 08:38 Spironolactone 25 Mg Tablet PO 25 mg DAILY ROSMERY Administration Tamsulosin HCl 0.8 mg 08/02/25 21:00 08/09/25 21:22 Tamsulosin Hcl 0.4 Mg Capsule PO 0.8 mg HS ROSMERY Administration Radiology Results: ITS Impressions GI Bleed Scan Nuclear Medicine 08/01/25 16:18 IMPRESSION: 1. No scintigraphic evidence for active gastrointestinal bleeding. Chest/Abdomen/Pelvis CT 08/04/25 09:11 IMPRESSION: 1. Bilateral inferior predominant lung disease which could represent, pulmonary edema, atelectasis or some combination thereof with very small right and trace left pleural effusions. 2. Cardiomegaly with enlargement of the central pulmonary arteries consistent with pulmonary arterial hypertension. 3. 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 4. Multiple scattered hepatic masses consistent with metastatic disease. If this is a new finding would recommend ultrasound-guided biopsy. 5. Indeterminate 1.2 cm exophytic right renal lesion most likely proteinaceous/hemorrhagic cyst although differential includes solid neoplasm. Consider follow-up pre and postcontrast MRI or CT when clinically improved. 6. Tiny focus of pneumobilia within the normal gallbladder likely related to a common bile duct biliary stent. Modified Barium Swallow 08/07/25 10:38 IMPRESSION: Patient tolerated regular consistency oral feedings in the upright position. Please correlate with speech pathologist findings and specific feeding recommendations. Chest X-Ray 08/08/25 07:47 IMPRESSION: 1. Persistent mild opacities in the right mid to lower and left lower lung zones which could represent atelectasis or pneumonia. Labs Labs: Laboratory Results - last 24 hr 08/10/25 09:58 WBC 17.5 H RBC 3.43 L Hgb 9.8 L Hct 30.3 L MCV 88.3 MCH 28.6 MCHC 32.3 RDW 17.5 H Plt Count 282 MPV 9.8 Sodium 135 L Potassium 3.8 Chloride 99 Carbon Dioxide 23 Anion Gap 13 H BUN 56 H D Creatinine 1.55 H Estim Creat Clear Calc 32 Estimated GFR 43 L Glucose 137 H Calcium 8.5 Phosphorus 4.9 H Magnesium 2.4 H Albumin 3.1 L Quality VTE Prophylaxis VTE prophylaxis: mechanical ordered
--- NOTE | 2025-08-10 14:12 | P.PNIM_ITS ---
Progress Note: A&P Assessment and Plan (1) Lobar pneumonia: Code(s): J18.1 - Lobar pneumonia, unspecified organism Status: Acute Assessment and Plan: Treated with IV fluids. -lactic was elevated at 2.5 and then came down to 1.6 with IV fluids. -routine nebulizer treatments. -continue with Rocephin and doxycycline IV antibiotics. -sputum culture pending Leukocytosis still persistent MRSA nares negative Will add Flagyl for anaerobic coverage (2) Atrial fibrillation: Code(s): I48.91 - Unspecified atrial fibrillation Status: Acute Assessment and Plan: -the patient remains in AFib with controlled heart rate -continue with Eliquis -continue with amiodarone With due to drop in H&H will hold Eliquis H&H remained stable No other signs of bleeding will resume Eliquis Due to prolonged QTC will hold amiodarone (3) Hyponatremia: Code(s): E87.1 - Hypo-osmolality and hyponatremia Status: Acute Assessment and Plan: -continue with IV fluids -check urine and serum osmolality -Lasix on hold -it was reported that the patient has some type of liver cancer. However cannot find it in his records and I was unable to reach anybody at the correction that could verify this. This could also be another source of hyponatremia -continue to monitor renal function (4) Hypothyroidism: Code(s): E03.9 - Hypothyroidism, unspecified Status: Acute Assessment and Plan: -continue replacement (5) Acute upper GI bleed: Code(s): K92.2 - Gastrointestinal hemorrhage, unspecified Status: Acute Assessment and Plan: -check stool for occult blood -continue to monitor H&H -his initial H&H was 7.8 and 24.8. Repeat level was 8.7 and 27.0. Now he is 6.7 and 21.0 -he is hemodynamically stable. -it was reported that the patient had a coffee-ground emesis in the emergency room. -the patient is on Eliquis for AFib -hold Eliquis -GI has been consulted. Awaiting recommendation. Transfuse 1 unit of PRBC 08/01/2025 Needed another transfusion 08/02/2025 On Protonix IV b.i.d. No signs of active GI bleed Nuclear bleeding scan was negative H&H now stable (6) History of liver disease: Code(s): Z87.19 - Personal history of other diseases of the digestive system Status: Acute Assessment and Plan: -it was reported that the patient has possible liver cancer. Get records. May consider CT of the abdomen. -liver enzymes are elevated CT abdomen pelvis with multiple scattered hepatic masses consistent with metastatic disease. (7) BPH (benign prostatic hyperplasia): Code(s): N40.0 - Benign prostatic hyperplasia without lower urinary tract symptoms Status: Acute Assessment and Plan: -continue with Flomax (8) Seizure disorder: Code(s): G40.909 - Epilepsy, unspecified, not intractable, without status epilepticus Status: Acute Assessment and Plan: -continue with Keppra and Tegretol -check Keppra and Tegretol levels. -the dosages on his seizure medicine came from his home list. (9) Acute renal failure: Code(s): N17.9 - Acute kidney failure, unspecified Status: Acute Assessment and Plan: -could be related to the Lasix -the patient could also be dehydrated from his fever and or poor oral intake. Received a dose of Lasix 08/03/2025 Resume Lasix - Plan Dysphagia modified barium swallow performed mild dysesthesia with single episode of laryngeal penetration without aspiration. On dysphagia diet now. 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 CT abdomen reviewed Indeterminate right renal lesion 1.2 cm exophytic most likely proteinaceous/hemorrhagic cyst follow-up as an outpatient basis No overnight events. No new complaints. Abdominal pain is better. patient with pneumonia and difficulty with swallowing, concerning for aspiration pneumonia, patient is being treated with ceftriaxone, and doxycycline, Flagyl is added to cover for anaerobic, patient had a modified swallow study, will thickened diet to prevent aspiration, patient repeat chest x-ray showed persistent mild opaciti es in the right mid to lower and left lower lung zones which could represent atelectasis or pneumonia. Generalized weakness present. patient stats feels better compared to when he arrived, will continue to monitor. on 08/08 spoke with patient son, agrees to place patient on DNR, will consider hospice, will consult home care giver for hospice consult. patient is now hospice patient, waiting for NH transfer. Subjective Date/time seen: 08/10/25 14:12 Interval history: No overnight events. No new complaints. Abdominal pain is better. patient with pneumonia and difficulty with swallowing, concerning for aspiration pneumonia, patient is being treated with ceftriaxone, and doxycycline, Flagyl is added to cover for anaerobic, patient had a modified swallow study, will thickened diet to prevent aspiration, patient repeat chest x-ray showed persistent mild opacities in the right mid to lower and left lower lung zones which could represent atelectasis or pneumonia. Generalized weakness present. patient stats feels better compared to when he arrived, will continue to monitor. on 08/08 spoke with patient son, agrees to place patient on DNR, will consider hospice, will consult home care giver for hospice consult. patient is now hospice patient, waiting for NH transfer. Review of Systems Review of Systems: ROS unobtainable: Yes unobtainable due to mental status Exam Narrative: Patient is comfortable, NAD HEENT: eyes are clear and none icteric LUNGS:CTA HEART: RR S1S2 ABD: BS+, Soft and nontender Lower extremities: no edema SKIN: nonjaundiced Neuro: grossly intact. Objective Data Vital Signs Vital Signs: Vital Signs - 24 hr 08/09/25 14:16 08/09/25 16:00 08/09/25 20:00 Temperature Pulse Rate 82 75 Respiratory Rate 16 Blood Pressure Pulse Oximetry Oxygen Delivery Room Air 08/09/25 20:00 08/09/25 21:32 08/09/25 21:35 Temperature 36.1 C L Pulse Rate 78 80 78 Respiratory Rate 16 24 H Blood Pressure 129/55 L Pulse Oximetry 98 Oxygen Delivery 08/09/25 21:41 08/09/25 21:53 08/10/25 00:00 Temperature Pulse Rate 80 96 Respiratory Rate 16 Blood Pressure Pulse Oximetry 96 Oxygen Delivery Room Air 08/10/25 02:18 08/10/25 04:00 08/10/25 05:31 Temperature Pulse Rate 80 84 98 Respiratory Rate 16 Blood Pressure Pulse Oximetry Oxygen Delivery 08/10/25 06:00 08/10/25 06:56 08/10/25 07:03 Temperature 35.8 C L Pulse Rate 75 88 84 Respiratory Rate 20 18 16 Blood Pressure 115/47 L Pulse Oximetry 97 Oxygen Delivery 08/10/25 08:00 08/10/25 08:38 08/10/25 08:40 Temperature Pulse Rate 80 84 Respiratory Rate Blood Pressure Pulse Oximetry 97 Oxygen Delivery Room Air 08/10/25 12:00 08/10/25 13:22 08/10/25 13:33 Temperature Pulse Rate 77 88 86 Respiratory Rate 18 16 Blood Pressure Pulse Oximetry Oxygen Delivery Intake/Output Intake/Output: Intake & Output 08/07/25 08/08/25 08/09/25 08/10/25 23:59 23:59 23:59 23:59 Intake Total 2170 695 840 720 Output Total 1100 1150 900 250 Balance 3781 -749 -81 470 Meds/Results Medications: Active Medications Generic Name Dose Route Start Last Admin Trade Name Freq PRN Reason Stop Dose Admin Acetaminophen 650 mg 08/03/25 15:51 08/06/25 18:09 Acetaminophen 325 Mg Tablet PO 650 mg Q4H PRN Administration Mild Pain (1-3) or Fever Hydrocodone Bitart/Acetaminophen 1 tab 08/07/25 07:40 08/07/25 09:52 Hydrocodone/Acetaminophen (*Crx) 5-325 Mg Tablet PO 1 tab Q6H PRN Administration Pain Rated 4-6 Amiodarone HCl 200 mg 08/06/25 12:25 08/10/25 08:38 Amiodarone Hcl 200 Mg Tablet PO 200 mg DAILY@0800 ROSMERY Administration Apixaban 5 mg 08/05/25 21:00 08/10/25 08:38 Apixaban 5 Mg Tablet PO 5 mg Q12HR ROSMERY Administration Furosemide 40 mg 08/04/25 15:40 08/10/25 08:38 Furosemide 40 Mg Tablet PO 40 mg DAILY ROSMERY Administration Guaifenesin 600 mg 08/03/25 21:00 08/10/25 08:38 Guaifenesin 12 Hr 600 Mg Tabcr PO 600 mg Q12HR ROSMERY Administration Guaifenesin/Dextromethorphan 10 ml 08/01/25 04:21 08/04/25 05:35 Guaifenesin/Dextromethorphan 10 Ml Udc PO 10 ml Q4H PRN Administration Cough Ceftriaxone Sodium 1 gm/ 50 mls @ 100 mls/hr 08/01/25 23:00 08/09/25 23:51 Sodium Chloride IVPB 100 mls/hr Q24H ROSMERY Administration Ipratropium [place] 0.5 mg 08/03/25 20:00 08/10/25 13:21 Ipratropium Br 0.02% Inh Soln 0.5 Mg/2.5 Ml Vial INHALATION 0.5 mg Q6HRT ROSMERY Administration Levalbuterol HCl 1.25 mg 08/03/25 20:00 08/10/25 13:21 Levalbuterol Neb 1.25 Mg/3 Ml INHALATION 1.25 mg Q6HRT ROSMERY Administration Levetiracetam 250 mg 08/01/25 18:15 08/03/25 08:18 Levetiracetam 250 Mg Tablet PO 250 mg DAILY PRN Administration trigeminal neuralgia Levothyroxine Sodium 150 mcg 08/01/25 06:30 08/10/25 05:31 Levothyroxine Sodium 150 Mcg Tablet PO 150 mcg DAILY@0630 ROSMERY Administration Metoprolol Tartrate 25 mg 08/03/25 14:00 08/10/25 05:31 Metoprolol Tartrate 25 Mg Tablet PO 25 mg Q8HR ROSMERY Administration Metronidazole 500 mg 08/05/25 13:00 08/10/25 05:31 Metronidazole 500 Mg Tablet PO 08/12/25 06:01 500 mg Q8HR ROSMERY Administration Multivitamins/Minerals 1 tablet 08/01/25 09:00 08/10/25 08:38 Opti-Gen Tab PO 1 tablet DAILY ROSMERY Administration Oxcarbazepine 600 mg 08/01/25 21:00 08/10/25 08:38 Oxcarbazepine 300 Mg Tablet PO 600 mg Q12HR ROSMERY Administration Oxcarbazepine 150 mg 08/02/25 15:00 08/10/25 08:38 Oxcarbazepine 150 Mg Tablet PO 150 mg DAILY ROSMERY Administration Pantoprazole Sodium 40 mg 08/01/25 21:00 08/10/25 08:41 Pantoprazole Sodium Iv 40 Mg Vial IV PUSH 40 mg Q12HR ROSMERY Administration Polyethylene Glycol 17 gm 08/02/25 09:00 08/10/25 08:44 Polyethylene Glycol 3350 17 Gm Powd.Pack PO Not Given QAM ROSMERY Spironolactone 25 mg 08/01/25 09:00 08/10/25 08:38 Spironolactone 25 Mg Tablet PO 25 mg DAILY ROSMERY Administration Tamsulosin HCl 0.8 mg 08/02/25 21:00 08/09/25 21:22 Tamsulosin Hcl 0.4 Mg Capsule PO 0.8 mg HS ROSMERY Administration Radiology Results: ITS Impressions GI Bleed Scan Nuclear Medicine 08/01/25 16:18 IMPRESSION: 1. No scintigraphic evidence for active gastrointestinal bleeding. Chest/Abdomen/Pelvis CT 08/04/25 09:11 IMPRESSION: 1. Bilateral inferior predominant lung disease which could represent, pulmonary edema, atelectasis or some combination thereof with very small right and trace left pleural effusions. 2. Cardiomegaly with enlargement of the central pulmonary arteries consistent with pulmonary arterial hypertension. 3. 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 4. Multiple scattered hepatic masses consistent with metastatic disease. If this is a new finding would recommend ultrasound-guided biopsy. 5. Indeterminate 1.2 cm exophytic right renal lesion most likely proteinaceous/hemorrhagic cyst although differential includes solid neoplasm. Consider follow-up pre and postcontrast MRI or CT when clinically improved. 6. Tiny focus of pneumobilia within the normal gallbladder likely related to a common bile duct biliary stent. Modified Barium Swallow 08/07/25 10:38 IMPRESSION: Patient tolerated regular consistency oral feedings in the upright position. Please correlate with speech pathologist findings and specific feeding recommendations. Chest X-Ray 08/08/25 07:47 IMPRESSION: 1. Persistent mild opacities in the right mid to lower and left lower lung zones which could represent atelectasis or pneumonia. Labs Labs: Laboratory Results - last 24 hr 08/10/25 09:58 WBC 17.5 H RBC 3.43 L Hgb 9.8 L Hct 30.3 L MCV 88.3 MCH 28.6 MCHC 32.3 RDW 17.5 H Plt Count 282 MPV 9.8 Sodium 135 L Potassium 3.8 Chloride 99 Carbon Dioxide 23 Anion Gap 13 H BUN 56 H D Creatinine 1.55 H Estim Creat Clear Calc 32 Estimated GFR 43 L Glucose 137 H Calcium 8.5 Phosphorus 4.9 H Magnesium 2.4 H Albumin 3.1 L Quality VTE Prophylaxis VTE prophylaxis: mechanical ordered
[2025-08-10] MEDS: TAMSULOSIN HCL 0.4 MG CAPSULE 0.8 MG PO (21:41)
[2025-08-11] VITALS (13 sets, daily range): BP systolic 111–129; BP diastolic 48–52; PULSE 75–87; RESP 16–20; TEMP 36.2–36.8; O2SAT 96–98
[2025-08-11] MEDS: cefTRIAXone 1 GM in SODIUM CHLORIDE 0.9% IV 50 ML 100 ML IVPB (00:04)
[2025-08-11] MEDS: METOPROLOL TARTRATE 25 MG TABLET PO ×3 (06:39→21:26)
[2025-08-11] MEDS: LEVOTHYROXINE SODIUM 150 MCG TABLET PO (06:39)
[2025-08-11] MEDS: IPRATROPIUM BR 0.02% INH SOLN 0.5 MG/2.5 ML VIAL INHALATION ×2 (07:47→14:19)
[2025-08-11] MEDS: OPTI-GEN TAB 1 TABLET PO (09:03)
[2025-08-11] MEDS: guaiFENesin 12 HR 600 MG TABCR PO ×2 (09:03→21:27)
[2025-08-11] MEDS: FUROSEMIDE 40 MG TABLET PO (09:03)
[2025-08-11] MEDS: APIXABAN 5 MG TABLET PO ×2 (09:03→21:26)
[2025-08-11] MEDS: SPIRONOLACTONE 25 MG TABLET PO (09:03)
[2025-08-11] MEDS: AMIODARONE HCL 200 MG TABLET PO (09:04)
[2025-08-11] MEDS: PANTOPRAZOLE SODIUM IV 40 MG VIAL IV PUSH ×2 (09:52→21:30)
[2025-08-11] MEDS: HYDROcodone/acetaminophen (*CRX) 5-325 MG TABLET 1 TAB PO (13:35)
--- NOTE | 2025-08-11 16:04 | P.PNIM_ITS ---
Progress Note: A&P Assessment and Plan (1) Lobar pneumonia: Code(s): J18.1 - Lobar pneumonia, unspecified organism Status: Acute Assessment and Plan: Treated with IV fluids. -lactic was elevated at 2.5 and then came down to 1.6 with IV fluids. -routine nebulizer treatments. -continue with Rocephin and doxycycline IV antibiotics. -sputum culture pending Leukocytosis still persistent MRSA nares negative Will add Flagyl for anaerobic coverage (2) Atrial fibrillation: Code(s): I48.91 - Unspecified atrial fibrillation Status: Acute Assessment and Plan: -the patient remains in AFib with controlled heart rate -continue with Eliquis -continue with amiodarone With due to drop in H&H will hold Eliquis H&H remained stable No other signs of bleeding will resume Eliquis Due to prolonged QTC will hold amiodarone (3) Hyponatremia: Code(s): E87.1 - Hypo-osmolality and hyponatremia Status: Acute Assessment and Plan: -continue with IV fluids -check urine and serum osmolality -Lasix on hold -it was reported that the patient has some type of liver cancer. However cannot find it in his records and I was unable to reach anybody at the intermediate that could verify this. This could also be another source of hyponatremia -continue to monitor renal function (4) Hypothyroidism: Code(s): E03.9 - Hypothyroidism, unspecified Status: Acute Assessment and Plan: -continue replacement (5) Acute upper GI bleed: Code(s): K92.2 - Gastrointestinal hemorrhage, unspecified Status: Acute Assessment and Plan: -check stool for occult blood -continue to monitor H&H -his initial H&H was 7.8 and 24.8. Repeat level was 8.7 and 27.0. Now he is 6.7 and 21.0 -he is hemodynamically stable. -it was reported that the patient had a coffee-ground emesis in the emergency room. -the patient is on Eliquis for AFib -hold Eliquis -GI has been consulted. Awaiting recommendation. Transfuse 1 unit of PRBC 08/01/2025 Needed another transfusion 08/02/2025 On Protonix IV b.i.d. No signs of active GI bleed Nuclear bleeding scan was negative H&H now stable (6) History of liver disease: Code(s): Z87.19 - Personal history of other diseases of the digestive system Status: Acute Assessment and Plan: -it was reported that the patient has possible liver cancer. Get records. May consider CT of the abdomen. -liver enzymes are elevated CT abdomen pelvis with multiple scattered hepatic masses consistent with metastatic disease. (7) BPH (benign prostatic hyperplasia): Code(s): N40.0 - Benign prostatic hyperplasia without lower urinary tract symptoms Status: Acute Assessment and Plan: -continue with Flomax (8) Seizure disorder: Code(s): G40.909 - Epilepsy, unspecified, not intractable, without status epilepticus Status: Acute Assessment and Plan: -continue with Keppra and Tegretol -check Keppra and Tegretol levels. -the dosages on his seizure medicine came from his home list. (9) Acute renal failure: Code(s): N17.9 - Acute kidney failure, unspecified Status: Acute Assessment and Plan: -could be related to the Lasix -the patient could also be dehydrated from his fever and or poor oral intake. Received a dose of Lasix 08/03/2025 Resume Lasix - Plan Dysphagia modified barium swallow performed mild dysesthesia with single episode of laryngeal penetration without aspiration. On dysphagia diet now. 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 CT abdomen reviewed Indeterminate right renal lesion 1.2 cm exophytic most likely proteinaceous/hemorrhagic cyst follow-up as an outpatient basis No overnight events. No new complaints. Abdominal pain is better. patient with pneumonia and difficulty with swallowing, concerning for aspiration pneumonia, patient is being treated with ceftriaxone, and doxycycline, Flagyl is added to cover for anaerobic, patient had a modified swallow study, will thickened diet to prevent aspiration, patient repeat chest x-ray showed persistent mild opaciti es in the right mid to lower and left lower lung zones which could represent atelectasis or pneumonia. Generalized weakness present. patient stats feels better compared to when he arrived, will continue to monitor. on 08/08 spoke with patient son, agrees to place patient on DNR, will consider hospice, will consult home health care case manager for hospice consult. patient is now hospice patient, waiting for NH transfer. bed may not be available until Monday, will monitor. Subjective Date/time seen: 08/11/25 16:04 Interval history: No overnight events. No new complaints. Abdominal pain is better. patient with pneumonia and difficulty with swallowing, concerning for aspiration pneumonia, patient is being treated with ceftriaxone, and doxycycline, Flagyl is added to cover for anaerobic, patient had a modified swallow study, will thickened diet to prevent aspiration, patient repeat chest x-ray showed persistent mild opacities in the right mid to lower and left lower lung zones which could represent atelectasis or pneumonia. Generalized weakness present. patient stats feels better compared to when he arrived, will continue to monitor. on 08/08 spoke with patient son, agrees to place patient on DNR, will consider hospice, will consult home health care case manager for hospice consult. patient is now hospice patient, waiting for NH transfer. bed may not be available until Monday, will monitor. Review of Systems Review of Systems: All systems reviewed & are unremarkable except as noted in HPI and below ROS unobtainable: Yes unobtainable due to medical condition and unobtainable due to mental status Exam Narrative: Patient is comfortable, NAD HEENT: eyes are clear and none icteric LUNGS:CTA HEART: RR S1S2 ABD: BS+, Soft and nontender Lower extremities: no edema SKIN: nonjaundiced Neuro: grossly intact. Objective Data Vital Signs Vital Signs: Vital Signs - 24 hr 08/10/25 20:00 08/10/25 21:11 08/10/25 21:14 Temperature 36.4 C Pulse Rate 76 82 Respiratory Rate 16 18 Blood Pressure 134/50 L Pulse Oximetry 98 Oxygen Delivery Room Air 08/10/25 21:18 08/10/25 21:20 08/11/25 04:26 Temperature 36.8 C Pulse Rate 84 75 Respiratory Rate 18 16 Blood Pressure 111/52 L Pulse Oximetry 97 96 Oxygen Delivery Room Air 08/11/25 07:49 08/11/25 07:50 08/11/25 07:56 Temperature Pulse Rate 79 77 Respiratory Rate 20 20 Blood Pressure Pulse Oximetry 96 Oxygen Delivery Room Air 08/11/25 08:00 08/11/25 09:04 08/11/25 13:36 Temperature Pulse Rate 78 76 Respiratory Rate Blood Pressure Pulse Oximetry Oxygen Delivery Room Air 08/11/25 14:21 08/11/25 14:29 Temperature Pulse Rate 83 80 Respiratory Rate 20 19 Blood Pressure Pulse Oximetry Oxygen Delivery Intake/Output Intake/Output: Intake & Output 08/08/25 08/09/25 08/10/25 08/11/25 23:59 23:59 23:59 23:59 Intake Total 695 840 770 440 Output Total 1150 809 052 700 Balance -455 -60 120 -260 Meds/Results Medications: Active Medications Generic Name Dose Route Start Last Admin Trade Name Freq PRN Reason Stop Dose Admin Acetaminophen 650 mg 08/03/25 15:51 08/06/25 18:09 Acetaminophen 325 Mg Tablet PO 650 mg Q4H PRN Administration Mild Pain (1-3) or Fever Hydrocodone Bitart/Acetaminophen 1 tab 08/07/25 07:40 08/11/25 13:35 Hydrocodone/Acetaminophen (*Crx) 5-325 Mg Tablet PO 1 tab Q6H PRN Administration Pain Rated 4-6 Amiodarone HCl 200 mg 08/06/25 12:25 08/11/25 09:04 Amiodarone Hcl 200 Mg Tablet PO 200 mg DAILY@0800 ROSMERY Administration Apixaban 5 mg 08/05/25 21:00 08/11/25 09:03 Apixaban 5 Mg Tablet PO 5 mg Q12HR ROSMERY Administration Furosemide 40 mg 08/04/25 15:40 08/11/25 09:03 Furosemide 40 Mg Tablet PO 40 mg DAILY ROSMERY Administration Guaifenesin 600 mg 08/03/25 21:00 08/11/25 09:03 Guaifenesin 12 Hr 600 Mg Tabcr PO 600 mg Q12HR ROSMERY Administration Guaifenesin/Dextromethorphan 10 ml 08/01/25 04:21 08/04/25 05:35 Guaifenesin/Dextromethorphan 10 Ml Udc PO 10 ml Q4H PRN Administration Cough Ceftriaxone Sodium 1 gm/ 50 mls @ 100 mls/hr 08/01/25 23:00 08/11/25 00:04 Sodium Chloride IVPB 100 mls/hr Q24H ROSMERY Administration Ipratropium [place] 0.5 mg 08/03/25 20:00 08/11/25 14:19 Ipratropium Br 0.02% Inh Soln 0.5 Mg/2.5 Ml Vial INHALATION 0.5 mg Q6HRT ROSMERY Administration Levalbuterol HCl 1.25 mg 08/03/25 20:00 08/11/25 14:19 Levalbuterol Neb 1.25 Mg/3 Ml INHALATION 1.25 mg Q6HRT ROSMERY Administration Levetiracetam 250 mg 08/01/25 18:15 08/03/25 08:18 Levetiracetam 250 Mg Tablet PO 250 mg DAILY PRN Administration trigeminal neuralgia Levothyroxine Sodium 150 mcg 08/01/25 06:30 08/11/25 06:39 Levothyroxine Sodium 150 Mcg Tablet PO 150 mcg DAILY@0630 ROSMERY Administration Metoprolol Tartrate 25 mg 08/03/25 14:00 08/11/25 13:36 Metoprolol Tartrate 25 Mg Tablet PO 25 mg Q8HR ROSMERY Administration Metronidazole 500 mg 08/05/25 13:00 08/11/25 13:35 Metronidazole 500 Mg Tablet PO 08/12/25 06:01 500 mg Q8HR ROSMERY Administration Multivitamins/Minerals 1 tablet 08/01/25 09:00 08/11/25 09:03 Opti-Gen Tab PO 1 tablet DAILY ROSMERY Administration Oxcarbazepine 600 mg 08/01/25 21:00 08/11/25 09:03 Oxcarbazepine 300 Mg Tablet PO 600 mg Q12HR ROSMERY Administration Oxcarbazepine 150 mg 08/02/25 15:00 08/11/25 09:03 Oxcarbazepine 150 Mg Tablet PO 150 mg DAILY ROSMERY Administration Pantoprazole Sodium 40 mg 08/01/25 21:00 08/11/25 09:52 Pantoprazole Sodium Iv 40 Mg Vial IV PUSH 40 mg Q12HR ROSMERY Administration Polyethylene Glycol 17 gm 08/02/25 09:00 08/11/25 09:52 Polyethylene Glycol 3350 17 Gm Powd.Pack PO Not Given QAM [facility] Spironolactone 25 mg 08/01/25 09:00 08/11/25 09:03 Spironolactone 25 Mg Tablet PO 25 mg DAILY ROSMERY Administration Tamsulosin HCl 0.8 mg 08/02/25 21:00 08/10/25 21:41 Tamsulosin Hcl 0.4 Mg Capsule PO 0.8 mg HS ROSMERY Administration Radiology Results: ITS Impressions GI Bleed Scan Nuclear Medicine 08/01/25 16:18 IMPRESSION: 1. No scintigraphic evidence for active gastrointestinal bleeding. Chest/Abdomen/Pelvis CT 08/04/25 09:11 IMPRESSION: 1. Bilateral inferior predominant lung disease which could represent, pulmonary edema, atelectasis or some combination thereof with very small right and trace left pleural effusions. 2. Cardiomegaly with enlargement of the central pulmonary arteries consistent with pulmonary arterial hypertension. 3. 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 4. Multiple scattered hepatic masses consistent with metastatic disease. If this is a new finding would recommend ultrasound-guided biopsy. 5. Indeterminate 1.2 cm exophytic right renal lesion most likely proteinaceous/hemorrhagic cyst although differential includes solid neoplasm. Consider follow-up pre and postcontrast MRI or CT when clinically improved. 6. Tiny focus of pneumobilia within the normal gallbladder likely related to a common bile duct biliary stent. Modified Barium Swallow 08/07/25 10:38 IMPRESSION: Patient tolerated regular consistency oral feedings in the upright position. Please correlate with speech pathologist findings and specific feeding recommendations. Chest X-Ray 08/08/25 07:47 IMPRESSION: 1. Persistent mild opacities in the right mid to lower and left lower lung zones which could represent atelectasis or pneumonia. Quality VTE Prophylaxis VTE prophylaxis: mechanical ordered
[2025-08-11] MEDS: TAMSULOSIN HCL 0.4 MG CAPSULE 0.8 MG PO (21:26)
[2025-08-12] VITALS (10 sets, daily range): BP systolic 123–126; BP diastolic 46–60; PULSE 53–88; RESP 12–18; TEMP 35.5–36.4; O2SAT 99–100
[2025-08-12] MEDS: LIDOCAINE 2% GEL UROJET 10 ML PKG MUCOUS MEM (02:28)
[2025-08-12] MEDS: IPRATROPIUM BR 0.02% INH SOLN 0.5 MG/2.5 ML VIAL INHALATION ×3 (02:30→13:41)
[2025-08-12] MEDS: LEVOTHYROXINE SODIUM 150 MCG TABLET PO (06:11)
[2025-08-12] MEDS: METOPROLOL TARTRATE 25 MG TABLET PO ×2 (06:11→13:03)
[2025-08-12] MEDS: AMIODARONE HCL 200 MG TABLET PO (08:45)
[2025-08-12] MEDS: PANTOPRAZOLE SODIUM IV 40 MG VIAL IV PUSH (08:45)
[2025-08-12] MEDS: FUROSEMIDE 40 MG TABLET PO (08:46)
[2025-08-12] MEDS: guaiFENesin 12 HR 600 MG TABCR PO (08:47)
[2025-08-12] MEDS: SPIRONOLACTONE 25 MG TABLET PO (08:47)
[2025-08-12] MEDS: OPTI-GEN TAB 1 TABLET PO (08:47)
[2025-08-12] MEDS: APIXABAN 5 MG TABLET PO (08:47)
--- NOTE | 2025-08-12 13:22 | P.PNIM_ITS ---
Progress Note: A&P Assessment and Plan (1) Lobar pneumonia: Code(s): J18.1 - Lobar pneumonia, unspecified organism Status: Acute Assessment and Plan: Treated with IV fluids. -lactic was elevated at 2.5 and then came down to 1.6 with IV fluids. -routine nebulizer treatments. -continue with Rocephin and doxycycline IV antibiotics. -sputum culture pending Leukocytosis still persistent MRSA nares negative Will add Flagyl for anaerobic coverage (2) Atrial fibrillation: Code(s): I48.91 - Unspecified atrial fibrillation Status: Acute Assessment and Plan: -the patient remains in AFib with controlled heart rate -continue with Eliquis -continue with amiodarone With due to drop in H&H will hold Eliquis H&H remained stable No other signs of bleeding will resume Eliquis Due to prolonged QTC will hold amiodarone (3) Hyponatremia: Code(s): E87.1 - Hypo-osmolality and hyponatremia Status: Acute Assessment and Plan: -continue with IV fluids -check urine and serum osmolality -Lasix on hold -it was reported that the patient has some type of liver cancer. However cannot find it in his records and I was unable to reach anybody at the [place] [facility] that could verify this. This could also be another source of hyponatremia -continue to monitor renal function (4) Hypothyroidism: Code(s): E03.9 - Hypothyroidism, unspecified Status: Acute Assessment and Plan: -continue replacement (5) Acute upper GI bleed: Code(s): K92.2 - Gastrointestinal hemorrhage, unspecified Status: Acute Assessment and Plan: -check stool for occult blood -continue to monitor H&H -his initial H&H was 7.8 and 24.8. Repeat level was 8.7 and 27.0. Now he is 6.7 and 21.0 -he is hemodynamically stable. -it was reported that the patient had a coffee-ground emesis in the emergency room. -the patient is on Eliquis for AFib -hold Eliquis -GI has been consulted. Awaiting recommendation. Transfuse 1 unit of PRBC 08/01/2025 Needed another transfusion 08/02/2025 On Protonix IV b.i.d. No signs of active GI bleed Nuclear bleeding scan was negative H&H now stable (6) History of liver disease: Code(s): Z87.19 - Personal history of other diseases of the digestive system Status: Acute Assessment and Plan: -it was reported that the patient has possible liver cancer. Get records. May consider CT of the abdomen. -liver enzymes are elevated CT abdomen pelvis with multiple scattered hepatic masses consistent with metastatic disease. (7) BPH (benign prostatic hyperplasia): Code(s): N40.0 - Benign prostatic hyperplasia without lower urinary tract symptoms Status: Acute Assessment and Plan: -continue with Flomax (8) Seizure disorder: Code(s): G40.909 - Epilepsy, unspecified, not intractable, without status epilepticus Status: Acute Assessment and Plan: -continue with Keppra and Tegretol -check Keppra and Tegretol levels. -the dosages on his seizure medicine came from his home list. (9) Acute renal failure: Code(s): N17.9 - Acute kidney failure, unspecified Status: Acute Assessment and Plan: -could be related to the Lasix -the patient could also be dehydrated from his fever and or poor oral intake. Received a dose of Lasix 08/03/2025 Resume Lasix - Plan Dysphagia modified barium swallow performed mild dysesthesia with single episode of laryngeal penetration without aspiration. On dysphagia diet now. 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 CT abdomen reviewed Indeterminate right renal lesion 1.2 cm exophytic most likely proteinaceous/hemorrhagic cyst follow-up as an outpatient basis No overnight events. No new complaints. Abdominal pain is better. patient with pneumonia and difficulty with swallowing, concerning for aspiration pneumonia, patient is being treated with ceftriaxone, and doxycycline, Flagyl is added to cover for anaerobic, patient had a modified swallow study, will thickened diet to prevent aspiration, patient repeat chest x-ray showed persistent mild opaciti es in the right mid to lower and left lower lung zones which could represent atelectasis or pneumonia. Generalized weakness present. patient stats feels better compared to when he arrived, will continue to monitor. on 08/08 spoke with patient son, agrees to place patient on DNR, will consider hospice, will consult pharmacy customer care specialist for hospice consult. patient is now hospice patient, waiting for NH transfer. bed may not be available until Monday, will monitor. still waiting Subjective Date/time seen: 08/12/25 13:22 Interval history: No overnight events. No new complaints. Abdominal pain is better. patient with pneumonia and difficulty with swallowing, concerning for aspiration pneumonia, patient is being treated with ceftriaxone, and doxycycline, Flagyl is added to cover for anaerobic, patient had a modified swallow study, will thickened diet to prevent aspiration, patient repeat chest x-ray showed persistent mild opacities in the right mid to lower and left lower lung zones which could represent atelectasis or pneumonia. Generalized weakness present. patient stats feels better compared to when he arrived, will continue to monitor. on 08/08 spoke with patient son, agrees to place patient on DNR, will consider hospice, will consult pharmacy customer care specialist for hospice consult. patient is now hospice patient, waiting for NH transfer. bed may not be available until Monday, will monitor. still waiting Review of Systems Review of Systems: All systems reviewed & are unremarkable except as noted in HPI and below ROS unobtainable: Yes unobtainable due to medical condition and unobtainable due to mental status Exam Narrative: Patient is comfortable, NAD HEENT: eyes are clear and none icteric LUNGS:CTA HEART: RR S1S2 ABD: BS+, Soft and nontender Lower extremities: no edema SKIN: nonjaundiced Neuro: grossly intact. Objective Data Vital Signs Vital Signs: Vital Signs - 24 hr 08/11/25 13:36 08/11/25 14:00 08/11/25 14:21 Temperature 36.2 C L Pulse Rate 76 87 83 Respiratory Rate 16 20 Blood Pressure 127/48 L Pulse Oximetry 98 Oxygen Delivery 08/11/25 14:29 08/11/25 20:00 08/11/25 20:39 Temperature Pulse Rate 80 76 Respiratory Rate 19 16 Blood Pressure Pulse Oximetry Oxygen Delivery Room Air 08/11/25 20:47 08/11/25 20:56 08/11/25 23:10 Temperature 36.4 C Pulse Rate 76 82 Respiratory Rate 16 16 Blood Pressure 129/50 L Pulse Oximetry 96 98 Oxygen Delivery Room Air 08/12/25 02:30 08/12/25 02:42 08/12/25 06:19 Temperature 36.4 C Pulse Rate 80 88 88 Respiratory Rate 18 18 16 Blood Pressure 123/46 L Pulse Oximetry 99 Oxygen Delivery 08/12/25 08:00 08/12/25 08:25 08/12/25 08:32 Temperature Pulse Rate 86 88 Respiratory Rate 12 12 Blood Pressure Pulse Oximetry Oxygen Delivery Room Air 08/12/25 08:45 08/12/25 13:03 Temperature Pulse Rate 85 85 Respiratory Rate Blood Pressure Pulse Oximetry Oxygen Delivery Intake/Output Intake/Output: Intake & Output 08/09/25 08/10/25 08/11/25 08/12/25 23:59 23:59 23:59 23:59 Intake Total 830 240 9870 480 Output Total 900 650 900 400 Balance -60 120 880 80 Meds/Results Medications: Active Medications Generic Name Dose Route Start Last Admin Trade Name Freq PRN Reason Stop Dose Admin Acetaminophen 650 mg 08/03/25 15:51 08/06/25 18:09 Acetaminophen 325 Mg Tablet PO 650 mg Q4H PRN Administration Mild Pain (1-3) or Fever Hydrocodone Bitart/Acetaminophen 1 tab 08/07/25 07:40 08/11/25 13:35 Hydrocodone/Acetaminophen (*Crx) 5-325 Mg Tablet PO 1 tab Q6H PRN Administration Pain Rated 4-6 Amiodarone HCl 200 mg 08/06/25 12:25 08/12/25 08:45 Amiodarone Hcl 200 Mg Tablet PO 200 mg DAILY@0800 ROSMERY Administration Apixaban 5 mg 08/05/25 21:00 08/12/25 08:47 Apixaban 5 Mg Tablet PO 5 mg Q12HR ROSMERY Administration Furosemide 40 mg 08/04/25 15:40 08/12/25 08:46 Furosemide 40 Mg Tablet PO 40 mg DAILY ROSMERY Administration Guaifenesin 600 mg 08/03/25 21:00 08/12/25 08:47 Guaifenesin 12 Hr 600 Mg Tabcr PO 600 mg Q12HR ROSMERY Administration Guaifenesin/Dextromethorphan 10 ml 08/01/25 04:21 08/04/25 05:35 Guaifenesin/Dextromethorphan 10 Ml Udc PO 10 ml Q4H PRN Administration Cough Ipratropium [place] 0.5 mg 08/03/25 20:00 08/12/25 08:22 Ipratropium Br 0.02% Inh Soln 0.5 Mg/2.5 Ml Vial INHALATION 0.5 mg Q6HRT ROSMERY Administration Levalbuterol HCl 1.25 mg 08/03/25 20:00 08/12/25 08:21 Levalbuterol Neb 1.25 Mg/3 Ml INHALATION 1.25 mg Q6HRT ROSMERY Administration Levetiracetam 250 mg 08/01/25 18:15 08/03/25 08:18 Levetiracetam 250 Mg Tablet PO 250 mg DAILY PRN Administration trigeminal neuralgia Levothyroxine Sodium 150 mcg 08/01/25 06:30 08/12/25 06:11 Levothyroxine Sodium 150 Mcg Tablet PO 150 mcg DAILY@0630 ROSMERY Administration Metoprolol Tartrate 25 mg 08/03/25 14:00 08/12/25 13:03 Metoprolol Tartrate 25 Mg Tablet PO 25 mg Q8HR ROSMERY Administration Multivitamins/Minerals 1 tablet 08/01/25 09:00 08/12/25 08:47 Opti-Gen Tab PO 1 tablet DAILY ROSMERY Administration Oxcarbazepine 600 mg 08/01/25 21:00 08/12/25 08:44 Oxcarbazepine 300 Mg Tablet PO 600 mg Q12HR ROSMERY Administration Oxcarbazepine 150 mg 08/02/25 15:00 08/12/25 08:47 Oxcarbazepine 150 Mg Tablet PO 150 mg DAILY ROSMERY Administration Pantoprazole Sodium 40 mg 08/01/25 21:00 08/12/25 08:45 Pantoprazole Sodium Iv 40 Mg Vial IV PUSH 40 mg Q12HR ROSMERY Administration Polyethylene Glycol 17 gm 08/02/25 09:00 08/12/25 08:49 Polyethylene Glycol 3350 17 Gm Powd.Pack PO Not Given QAM ON LICENSE OF [facility] Spironolactone 25 mg 08/01/25 09:00 08/12/25 08:47 Spironolactone 25 Mg Tablet PO 25 mg DAILY ROSMERY Administration Tamsulosin HCl 0.8 mg 08/02/25 21:00 08/11/25 21:26 Tamsulosin Hcl 0.4 Mg Capsule PO 0.8 mg HS ROSMERY Administration Radiology Results: ITS Impressions GI Bleed Scan Nuclear Medicine 08/01/25 16:18 IMPRESSION: 1. No scintigraphic evidence for active gastrointestinal bleeding. Chest/Abdomen/Pelvis CT 08/04/25 09:11 IMPRESSION: 1. Bilateral inferior predominant lung disease which could represent, pulmonary edema, atelectasis or some combination thereof with very small right and trace left pleural effusions. 2. Cardiomegaly with enlargement of the central pulmonary arteries consistent with pulmonary arterial hypertension. 3. 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 4. Multiple scattered hepatic masses consistent with metastatic disease. If this is a new finding would recommend ultrasound-guided biopsy. 5. Indeterminate 1.2 cm exophytic right renal lesion most likely proteinaceous/hemorrhagic cyst although differential includes solid neoplasm. Consider follow-up pre and postcontrast MRI or CT when clinically improved. 6. Tiny focus of pneumobilia within the normal gallbladder likely related to a common bile duct biliary stent. Modified Barium Swallow 08/07/25 10:38 IMPRESSION: Patient tolerated regular consistency oral feedings in the upright position. Please correlate with speech pathologist findings and specific feeding recommendations. Chest X-Ray 08/08/25 07:47 IMPRESSION: 1. Persistent mild opacities in the right mid to lower and left lower lung zones which could represent atelectasis or pneumonia. Labs Labs: Laboratory Results - last 24 hr 08/11/25 17:28 POC Capillary Glucose 102 Quality VTE Prophylaxis VTE prophylaxis: mechanical ordered
--- NOTE | 2025-08-12 13:45 | PCOTNOTE ---
Attempted OT services at this time. Patient states he is not interested anymore, no activities, just sleep , feels so tired and just done. Patient is planned to be discharged to a facility with hospice this date.
--- NOTE | 2025-08-12 15:41 | PM.DS ---
DS: Admitting Diagnosis Discharge Date 08/12/25 Admitting Diagnosis Altered mental status DS: Discharge Diagnosis Discharge Diagnosis (1) Lobar pneumonia: Code(s): J18.1 - Lobar pneumonia, unspecified organism Status: Acute Assessment and Plan: Treated with IV fluids. -lactic was elevated at 2.5 and then came down to 1.6 with IV fluids. -routine nebulizer treatments. -continue with Rocephin and doxycycline IV antibiotics. -sputum culture pending Leukocytosis still persistent MRSA nares negative Will add Flagyl for anaerobic coverage (2) Atrial fibrillation: Code(s): I48.91 - Unspecified atrial fibrillation Status: Acute Assessment and Plan: -the patient remains in AFib with controlled heart rate -continue with Eliquis -continue with amiodarone With due to drop in H&H will hold Eliquis H&H remained stable No other signs of bleeding will resume Eliquis Due to prolonged QTC will hold amiodarone (3) Hyponatremia: Code(s): E87.1 - Hypo-osmolality and hyponatremia Status: Acute Assessment and Plan: -continue with IV fluids -check urine and serum osmolality -Lasix on hold -it was reported that the patient has some type of liver cancer. However cannot find it in his records and I was unable to reach anybody at the [facility] that could verify this. This could also be another source of hyponatremia -continue to monitor renal function (4) Hypothyroidism: Code(s): E03.9 - Hypothyroidism, unspecified Status: Acute Assessment and Plan: -continue replacement (5) Acute upper GI bleed: Code(s): K92.2 - Gastrointestinal hemorrhage, unspecified Status: Acute Assessment and Plan: -check stool for occult blood -continue to monitor H&H -his initial H&H was 7.8 and 24.8. Repeat level was 8.7 and 27.0. Now he is 6.7 and 21.0 -he is hemodynamically stable. -it was reported that the patient had a coffee-ground emesis in the emergency room. -the patient is on Eliquis for AFib -hold Eliquis -GI has been consulted. Awaiting recommendation. Transfuse 1 unit of PRBC 08/01/2025 Needed another transfusion 08/02/2025 On Protonix IV b.i.d. No signs of active GI bleed Nuclear bleeding scan was negative H&H now stable (6) History of liver disease: Code(s): Z87.19 - Personal history of other diseases of the digestive system Status: Acute Assessment and Plan: -it was reported that the patient has possible liver cancer. Get records. May consider CT of the abdomen. -liver enzymes are elevated CT abdomen pelvis with multiple scattered hepatic masses consistent with metastatic disease. (7) BPH (benign prostatic hyperplasia): Code(s): N40.0 - Benign prostatic hyperplasia without lower urinary tract symptoms Status: Acute Assessment and Plan: -continue with Flomax (8) Seizure disorder: Code(s): G40.909 - Epilepsy, unspecified, not intractable, without status epilepticus Status: Acute Assessment and Plan: -continue with Keppra and Tegretol -check Keppra and Tegretol levels. -the dosages on his seizure medicine came from his home list. (9) Acute renal failure: Code(s): N17.9 - Acute kidney failure, unspecified Status: Acute Assessment and Plan: -could be related to the Lasix -the patient could also be dehydrated from his fever and or poor oral intake. Received a dose of Lasix 08/03/2025 Resume Lasix - Plan Dysphagia modified barium swallow performed mild dysesthesia with single episode of laryngeal penetration without aspiration. On dysphagia diet now. 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 CT abdomen reviewed Indeterminate right renal lesion 1.2 cm exophytic most likely proteinaceous/hemorrhagic cyst follow-up as an outpatient basis No overnight events. No new complaints. Abdominal pain is better. patient with pneumonia and difficulty with swallowing, concerning for aspiration pneumonia, patient is being treated with ceftriaxone, and doxycycline, Flagyl is added to cover for anaerobic, patient had a modified swallow study, will thickened diet to prevent aspiration, patient repeat chest x-ray showed persistent mild opacities in the right mid to lower and left lower lung zones which could represent atelectasis or pneumonia. Generalized weakness present. patient stats feels better compared to when he arrived, will continue to monitor. on 08/08 spoke with patient son, agrees to place patient on DNR, will consider hospice, will consult behavioral health care manager for hospice consult. patient is now hospice patient, waiting for NH transfer. bed may not be available until Monday, will monitor. still waiting DS: Summary Hospital Course Hospital Course: Dysphagia modified barium swallow performed mild dysesthesia with single episode of laryngeal penetration without aspiration. On dysphagia diet now. 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 CT abdomen reviewed Indeterminate right renal lesion 1.2 cm exophytic most likely proteinaceous/hemorrhagic cyst follow-up as an outpatient basis No overnight events. No new complaints. Abdominal pain is better. patient with pneumonia and difficulty with swallowing, concerning for aspiration pneumonia, patient is being treated with ceftriaxone, and doxycycline, Flagyl is added to cover for anaerobic, patient had a modified swallow study, will thickened diet to prevent aspiration, patient repeat chest x-ray showed persistent mild opacities in the right mid to lower and left lower lung zones which could represent atelectasis or pneumonia. Generalized weakness present. patient stats feels better compared to when he arrived, will continue to monitor. on 08/08 spoke with patient son, agrees to place patient on DNR, will consider hospice, will consult behavioral health care manager for hospice consult. patient is now hospice patient, waiting for NH transfer. bed may not be available until Monday, will monitor. today patient has [place] bed, patient is clinically stable, will discharge patient and he will be admitted under hospice care. Time Spent with Patient Time attestation: Total time spent providing and/or coordinating discharge services: Exam Narrative: Patient is comfortable, NAD HEENT: eyes are clear and none icteric LUNGS:CTA HEART: RR S1S2 ABD: BS+, Soft and nontender Lower extremities: no edema SKIN: nonjaundiced Neuro: grossly intact. DS: Data Data Completed and Pending Labs on day of discharge: Labs from last 24 hours 08/11/25 17:28 POC Capillary Glucose 102 Discharge Plan Discharge Attending physician on discharge: Rachel Prado Consulting providers: Dariela De León; Jagjit Cabral; Feliciano Mcgee; Moni Storey; Michael Downs; Vance Robles; Dereck Aly; Mike Calderon Discharging Clinician: Luis Burger Patient Disposition: Hospice - Home Activity: as tolerated Diet: as tolerated Discharge Instructions: Patient is being discharged to [place] where he will be admitted under hospice care Patient Instructions: Antibiotic Form, Apixaban (By mouth), Heart Failure (DC), Gastrointestinal Bleeding (GEN), Sepsis (GEN), Pneumonia (GEN) Patient Language: Maltese Stand Alone Forms: General Discharge Information Discharge Medications: Continued amiodarone 200 mg tablet 200 mg PO BID aspirin 81 mg tablet 81 mg PO ONCE Centrum Silver Men [phone] mcg tablet 1 tablet PO DAILY Eliquis 5 mg tablet 5 mg PO BID tamsulosin 0.4 mg capsule 0.8 mg PO Q24H furosemide 20 mg tablet 20 mg PO DAILY@0800 levetiracetam [Keppra] 250 mg tablet 250 mg PO DAILY levothyroxine 150 mcg tablet 150 mcg PO DAILY@0630 metoprolol tartrate 25 mg tablet 25 mg PO BID Ocuvite Lutein and Zeaxanthin 60 mg-13.5 mg- 15 mg-2 mg-6 mg capsule 1 cap PO DAILY spironolactone 25 mg tablet 25 mg PO DAILY carbamazepine [Tegretol] 200 mg tablet 300 mg PO DAILY carbamazepine [Tegretol] 100 mg/5 mL suspension 150 mg PO DAILY@1700 Date of admission: 07/31/25 22:34 Primary Care Provider: PHYSICIAN,VEGETABLE BUNCHER Admitting Provider: Rachel Prado Attending physician on admission: Luis Burger Condition: Stable
== END 2025-08-12 18:05 | disposition hospice, inpatient (51) | DRG 871 ==
LOC: ANHED 22:39 → ANHIMU 23:00 → ANH3MEDSUR 08-02 18:55
PROVIDERS: General Practice; Internal Medicine; Nurse Practitioner; Nurse Practitioner Gerontology; Admitting Provider Internal Medicine; Emergency Provider Emergency Medicine; Visit Provider Family Medicine
DX: A41.9 Sepsis, unspecified organism (principal); J18.1 Lobar pneumonia, unspecified organism; K92.0 Hematemesis; C78.7 Secondary malignant neoplasm of liver and intrahepatic bile duct; E87.1 Hypo-osmolality and hyponatremia; N17.9 Acute kidney failure, unspecified; I48.20 Chronic atrial fibrillation, unspecified; E03.9 Hypothyroidism, unspecified; N40.0 Benign prostatic hyperplasia without lower urinary tract symptoms; E86.0 Dehydration; G40.909 Epilepsy, unspecified, not intractable, without status epilepticus; R13.13 Dysphagia, pharyngeal phase; D64.89 Other specified anemias; R10.11 Right upper quadrant pain; N28.1 Cyst of kidney, acquired; Z96.89 Presence of other specified functional implants; Z66 Do not resuscitate; F10.21 Alcohol dependence, in remission; Z51.5 Encounter for palliative care; Z79.01 Long term (current) use of anticoagulants; Z79.82 Long term (current) use of aspirin; Z87.891 Personal history of nicotine dependence; Z85.05 Personal history of malignant neoplasm of liver; Z20.822 Contact with and (suspected) exposure to COVID-19
CPT/HCPCS: 36415; 36430; 71045; 71250; 74176; 74230; 78278; 80048; 80053; 80069; 80156; 80177; 81001; 82140; 82948; 83605; 83735; 83930; 83935; 84100; 84145; 84443; 85014; 85018; 85025; 85027; 86850; 86900; 86901; 86923; 87040; 87070; 87205; 87637; 87641; 92526; 92610; 92611; 93005; 94640; 96365; 96375; 97110; 97162; 97166; 97530; 97535; 99285; A9270; A9560; J0616; J0696; J1938; J2270; J2470; J7030; J7050; P9016